=== PATIENT | male | born 1965 | race Two or more races ===

== ENCOUNTER 2021-04-14 09:57 | Outpatient (REF) | payer BC, SELFPAY ==
--- NOTE | 2021-04-14 10:03 | EMG_ITS ---
This is a 55-year-old man with several year history of bilateral upper extremity pain and numbness with the right being worse than the left. PHYSICAL EXAMINATION: On examination, he is alert and oriented with normal intellectual functions. Cranial nerves II through XII are normal. Muscle tone and strength are normal in all 4 extremities. Deep tendon reflexes symmetrical. Plantar responses are flexor. No Tinel or Phalen sign. IMPRESSION: Carpal tunnel syndrome. Nerve conduction EMG study: Moderately severe carpal tunnel syndrome on the right, early carpal tunnel syndrome on the left. Normal EMG of the right C5-T1 innervated muscles. MD NICHELLE Yeh/NEETA / [id number]
== END 2021-04-14 09:58 | disposition home or self-care (01) ==
LOC: HO.NEURO 09:57
PROVIDERS: Visit Provider Internal Medicine
DX: G56.03 Carpal tunnel syndrome, bilateral upper limbs (principal)
CPT/HCPCS: 95885; 95913

== ENCOUNTER → 2021-05-12 08:55 | Outpatient (BNVA) | payer BC, SELFPAY | PROVIDERS: Visit Provider Orthopaedic Surgery ==

== ENCOUNTER 2021-05-24 10:48 | Day surgery (SDC) | payer BC, SELFPAY ==
[2021-05-24 11:19] VITALS: BMI 29.9
[2021-05-24 11:24] VITALS: BP 136/83; PULSE 81; RESP 16; TEMP 36.7; O2SAT 98
--- NOTE | 2021-05-24 12:06 | MHC.SHP ---
Pre-Procedural Eval Section A Date of Service: 05/24/21 The patient is an INPATIENT: No Changes since office visit: No Cold of Flu in the past 2 weeks, No New Medical Problems, No Changes in Medication and No Patient answered all questions The History & Physical has been completed within 30 days and I have reviewed it.: Yes Section B Chief Complaint: carpal tunnel syndrome Allergies: Allergies Allergy/AdvReac Type Severity Reaction Status Date / Time No Known Allergies Allergy Verified 05/24/21 11:17 Plan I have reviewed the history and physical and performed a pertinent physical examination on my patient. No changes have occurred unless specified.
--- NOTE | 2021-05-24 12:07 | W.PM.OPN ---
Operative Note Operative Note Date of Service: 05/24/21 Narrative: Preop diagnosis: 1. Right Carpal tunnel syndrome Postop diagnosis: same Procedure: 1. Right Carpal tunnel release Surgeon: Xi Garner MD Anesthesia: local block using 1% lidocaine with epinephrine Findings: Thickened transverse carpal ligament. EBL: Less than 5 mL Specimens: None Complications: None Disposition: Brought to recovery room in stable condition Plan: Follow-up for 7-10 days for wound check and suture removal Indications: The patient is 55 years old, with right carpal tunnel syndrome that has been unresponsive to nonoperative management. The risks and benefits of operative treatment including but not limited to risk of damage to blood vessels, nerves, tendons, infection, persistent pain, persistent symptoms, or possible need for additional surgery were discussed with the patient and the patient wishes to proceed with surgery. Procedure: Once consent was obtained a local block was performed using a combination of 1% lidocaine with epinephrine. The patient was then brought back to the operating suite and placed on the operative table in supine position. A tourniquet was applied to the proximal aspect of the right upper extremity and the limb was prepped and draped in a standard surgical fashion. Once assured that we had a good block, a 1.5 cm longitudinal incision was made centered over the carpal tunnel. The incision was made through the skin to the subcutaneous tissues using a #15 blade. Dissection was made down to the level of the transverse carpal ligament with care being taken to protect the palmar cutaneous nerve. Once the transverse carpal ligament was clearly visualized, a longitudinal incision was made in the transverse carpal ligament 1st using a #15 blade, then using tenotomy scissors under direct visualization. Care was taken to look for and protect the motor branch of the median nerve when seen in this area. Once satisfied with our carpal tunnel release the wound was copiously irrigated with normal saline and hemostasis was obtained with a brief period of local pressure. The skin edges were reapproximated with some 5.0 nylon suture material and a sterile dressing was applied. The patient appears to have tolerated the procedure well and with no complications. All digits were well vascularized at the conclusion of the case.
[2021-05-24 13:25] VITALS: BP 135/84; PULSE 79; RESP 16; TEMP 36.8; O2SAT 97
== END 2021-05-24 13:41 | disposition home or self-care (01) ==
PROVIDERS: PCP Internal Medicine; Visit Provider Orthopaedic Surgery
PROC: (CPT 64721; principal; 2021-05-24 12:10)
DX: G56.01 Carpal tunnel syndrome, right upper limb (principal); I10 Essential (primary) hypertension; E78.00 Pure hypercholesterolemia, unspecified; Z79.899 Other long term (current) drug therapy; Z87.891 Personal history of nicotine dependence
CPT/HCPCS: 64721

== ENCOUNTER → 2021-06-02 14:25 | Outpatient (BNVA) | payer BC, SELFPAY | PROVIDERS: PCP Internal Medicine; Visit Provider Orthopaedic Surgery ==

== ENCOUNTER 2023-10-24 10:22 | Outpatient (REF) | payer BC, SELFPAY ==
[2023-10-24 10:58] LABS: MANUAL DIFF FLAG NO
[2023-10-24 11:07] LABS: Basophils Percent Auto 0.7 % (0-2); Eosinophils Absolute Auto 0.1 X10*3/uL (0.0-0.4); Eosinophils Percent Auto 2.4 % (0-4); Hematocrit 43.7 % (42.0-52.0); Hemoglobin 15.1 g/dl (14.0-18.0); Imm Gran Abs Auto 0.01 X10*3/uL (0.00-0.03); Imm Gran Pct Auto 0.2 % (0.0-0.4); Lymphocytes Absolute Auto 1.1 X10*3/uL (1.2-4.9); Lymphocytes Percent Auto 25.2 % (20-40); Mean Corpuscular HGB Conc 34.6 g/dl (31.0-36.0); Mean Corpuscular Hemoglobin 32.9 pg (27.0-33.0); Mean Corpuscular Volume 95.2 fL (80.0-98.0); Mean Platelet Volume 9.2 fL (9.4-12.4); Monocytes Absolute Auto 0.6 X10*3/uL (0.1-1.2); Monocytes Percent Auto 13.4 % (2-11); Neutrophils Absolute Auto 2.5 x10*3/uL (2.0-8.3); Neutrophils Percent Auto 58.1 % (45-73); Platelet Count 184 X10*3/uL (160-400); Red Blood Count 4.59 X10*6/uL (4.60-5.80); White Blood Count 4.3 X10*3/uL (4.8-10.8)
[2023-10-24 11:35] LABS: Alanine Aminotransferase 26 U/L (0-40); Albumin Level 4.3 g/dL (3.5-5.0); Alkaline Phosphatase 89 U/L (39-117); Anion Gap 11 (12-20); Aspartate Amino Transferase 30 U/L (5-37); Bilirubin Total 0.6 mg/dL (0.0-1.0); Blood Urea Nitrogen 12 mg/dL (9-16); Calcium 9.3 mg/dL (8.4-10.2); Carbon Dioxide 25 mmol/L (22-29); Chloride 104 mmol/L (96-108); Estimated Glomerular Filt Rate > 60; Glucose Random 94 mg/dL (60-115); Potassium 4.1 mmol/L (3.3-5.1); Sodium 136 mmol/L (135-145); Total Protein 7.6 g/dL (6.5-8.0)
== END 2023-10-24 10:23 | disposition home or self-care (01) ==
LOC: HO.10HDL 10:22
PROVIDERS: Visit Provider Internal Medicine
DX: R22.1 Localized swelling, mass and lump, neck (principal)
CPT/HCPCS: 36415; 80053; 85025

== ENCOUNTER 2023-10-31 11:15 | Outpatient (AMB) | payer BC, SELFPAY ==
--- NOTE | 2023-10-31 11:24 | MHC.OFFVIS ---
Vital Signs 10/31/23 11:30 Weight 180 lb BP 154/80 H Blood Pressure Location Rt brachial Position Sitting Pulse 75 Intake Visit Reasons: Lump RT side of Neck Intake Note: Patient referred by PCP Dr. Veloz for lump on Rt neck. Present for 1.5m. Patient c/o: enlarging. U/S scheduled for later on today. 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 He has had this for approximately 2 months time. He has no other such lumps or lesions elsewhere. Patient denies any fever, chills, night sweats, weight loss. Appetite, and energy are stable. Patient did have a significant smoking history where he smoked 1 pack per day for over 40 years. He discontinued smoking 2016. Patient does not recall any specific infections' dental issues,, or a CAT scratch in the head and neck area, although he does have a cat as a pet. He had a sore throat approximately 2 months ago which has since resolved.. Chart was reviewed and patient evaluated . Ultrasound results from an outside facility demonstrate suspicious cervical adenopathy on the right. 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 No other cervical, periclavicular, or axillary adenopathy appreciated bilaterally. Chest Other: Chest breath sounds bilaterally. HS 1 in 2 GI Other: Abdomen is soft, benign Assessment & Plan Assessment & Plan (1) Cervical lymphadenopathy: Code(s): R59.0 - Localized enlarged lymph nodes Category: Surgical Plan Think the patient needs an excisional biopsy of this right cervical mass. CT scan scheduled and encouraged the patient to complete this. Is unlikely to change the need for tissue diagnosis. Risks, benefits, alternatives of excisional biopsy right cervical lymph node reviewed with the patient and included but not limited to bleeding, infection, recurrence, numbness, pain, scarring the patient wishes to proceed. All questions answered. Arrangements were made for this. Coding Level of Care Code New Pt Level 5 (04598) Diagnoses Cervical lymphadenopathy R59.0
[2023-10-31 11:30] VITALS: BP 154/80; PULSE 75
== END 2023-10-31 11:45 | disposition home or self-care (01) ==
PROVIDERS: PCP Internal Medicine; Referring Provider Internal Medicine; Visit Provider Surgery
DX: R59.0 Localized enlarged lymph nodes (principal)
CPT/HCPCS: 99204

== ENCOUNTER → 2023-10-31 11:15 | Outpatient (BNVA) | payer BC, SELFPAY | PROVIDERS: PCP Internal Medicine; Referring Provider Internal Medicine; Visit Provider Surgery ==

== ENCOUNTER 2023-11-10 05:51 | Day surgery (SDC) | payer BC, SELFPAY ==
--- NOTE | 2023-11-09 12:19 | MHC.SHP ---
Pre-Procedural Eval Section A - 24 Hr Update-Section A only Date of Service: 11/09/23 The patient is an INPATIENT: No Changes since office visit: No Cold of Flu in the past 2 weeks, No New Medical Problems, No Changes in Medication and No Patient answered all questions Section B - Complete if H&P > 30 days Chief Complaint: Localized enlarged lymph nodes Allergies: Allergies Allergy/AdvReac Type Severity Reaction Status Date / Time No Known Allergies Allergy Verified 10/31/23 11:29 Plan I have reviewed the history and physical and performed a pertinent physical examination on my patient. No changes have occurred unless specified. Time Spent With Patient Time: Total time managing care of this patient today ____ minutes.
[2023-11-10 06:24] VITALS: BP 129/94; PULSE 77; RESP 16; TEMP 36.7; O2SAT 95
[2023-11-10] MEDS: Lactated Ringers 1,000 ML 100 ML IVCONT (06:25)
--- NOTE | 2023-11-10 07:15 | P.CONAN_ITS ---
Documented by User: Mary Chirinos NP 11/08/23 14:16 HPI - Anesthesia Eval Consult details Narrative: 58yo M for Right Excision Lymph Node with biopsy PMFSH Active Problems Active Problems: All Active Problems Cervical lymphadenopathy (Acute) Carpal tunnel syndrome of left wrist (Acute) Carpal tunnel syndrome of right wrist (Acute) Past Medical History Medical History AVM (arteriovenous malformation) Elevated cholesterol CVA (cerebral vascular accident) Carpal tunnel syndrome High blood pressure Surgical History Surgical History H/O colonoscopy History of carpal tunnel release S/P partial lobectomy of lung Social History Social History Household Members Other:: son Are you a primary medicare biller to a significant other at home: No Do you presently have visiting nurse or other home services: No Patient Tobacco Use Status: Former Tobacco user Quit Date: 2016 Tobacco use type: Cigarette Cigarettes Per Day: 20 Years Smoked: 40 Are you DNR?: No Advance Directives Information Provided: Yes (as above noted) Advance Directives on File: No Recently lost weight without trying: No Eating poorly because of decreased appetite: No Nutrition Risks: No Nutritional Risk Poor oral hygiene: No (dental extractions & crowns) Current occupational status: employed 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 Meds Allergies Allergy/AdvReac Type Severity Reaction Status Date / Time No Known Allergies Allergy Verified 11/10/23 06:08 Home Medications ?Medication ?Instructions ?Recorded ?Confirmed ?Last Taken ?Type amlodipine 10 mg tablet 1 tab PO DAILY 05/24/21 11/10/23 11/09/23 History aspirin 81 mg PO DAILY 05/24/21 11/10/23 11/09/23 History atorvastatin 80 mg tablet 1 tab PO DAILY 05/24/21 11/10/23 11/09/23 History lisinopril 20 1 tab PO DAILY 05/24/21 11/10/23 11/09/23 History mg-hydrochlorothiazide 25 mg tablet sildenafil 100 mg tablet 1 tab PO DIRECTED 05/24/21 11/08/23 Unknown History valacyclovir 1 gram tablet 1,000 mg PO DAILY 10/31/23 11/08/23 Unknown History (Valtrex) Exam Height,Weight and Vital Signs: Height 5 ft 5 in Weight 81.647 kg Pertinent Lab Results Pertinent Lab Results: Laboratory Tests 10/24/23 10:26 WBC 4.3 L Hgb 15.1 Hct 43.7 Plt Count 184 Sodium 136 Potassium 4.1 Chloride 104 Carbon Dioxide 25 BUN 12 Creatinine 0.80 Assessment and Plan Assessment Anesthesia Assessment: Chart Reviewed Documented by User: Janina Hernandez DO 11/10/23 07:19 HPI - Anesthesia Eval Consult details Narrative: 58yo M for Right Excision Lymph Node with biopsy CVA in 2017 - no residual deficits PMFSH Past Medical History Medical History AVM (arteriovenous malformation) Elevated cholesterol CVA (cerebral vascular accident) Carpal tunnel syndrome High blood pressure Family History Family history of problems with anesthesia: No Surgical History Surgical History H/O colonoscopy History of carpal tunnel release S/P partial lobectomy of lung History of Problems with Anesthesia: No Social History Social History Household Members Other:: son Are you a primary medicare biller to a significant other at home: No Do you presently have visiting nurse or other home services: No Patient Tobacco Use Status: Former Tobacco user Quit Date: 2016 Tobacco use type: Cigarette Cigarettes Per Day: 20 Years Smoked: 40 Are you DNR?: No Advance Directives Information Provided: Yes (as above noted) Advance Directives on File: No Recently lost weight without trying: No Eating poorly because of decreased appetite: No Nutrition Risks: No Nutritional Risk Poor oral hygiene: No (dental extractions & crowns) Current occupational status: employed 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 Meds Allergies Allergy/AdvReac Type Severity Reaction Status Date / Time No Known Allergies Allergy Verified 11/10/23 06:08 Home Medications ?Medication ?Instructions ?Recorded ?Confirmed ?Last Taken ?Type amlodipine 10 mg tablet 1 tab PO DAILY 05/24/21 11/10/23 11/09/23 History aspirin 81 mg PO DAILY 05/24/21 11/10/23 11/09/23 History atorvastatin 80 mg tablet 1 tab PO DAILY 05/24/21 11/10/23 11/09/23 History lisinopril 20 1 tab PO DAILY 05/24/21 11/10/23 11/09/23 History mg-hydrochlorothiazide 25 mg tablet sildenafil 100 mg tablet 1 tab PO DIRECTED 05/24/21 11/08/23 Unknown History valacyclovir 1 gram tablet 1,000 mg PO DAILY 10/31/23 11/08/23 Unknown History (Valtrex) Exam Exam Date and Time: November 10, 2023 0712 Height,Weight and Vital Signs: Height 5 ft 5 in Weight 81.647 kg Height 5 ft 5 in Weight 81.647 kg Vital Signs Temperature 98.0 F 11/10/23 06:24 Pulse Rate 77 11/10/23 06:24 Respiratory Rate 16 11/10/23 06:24 Blood Pressure 129/94 H 11/10/23 06:24 Pulse Oximetry 95 11/10/23 06:24 Oxygen Delivery Method Room Air 11/10/23 06:24 Temperature 98.0 F 11/10/23 06:24 Pulse Rate 77 11/10/23 06:24 Respiratory Rate 16 11/10/23 06:24 Blood Pressure 129/94 H 11/10/23 06:24 Pulse Oximetry 95 11/10/23 06:24 Oxygen Delivery Method Room Air 11/10/23 06:24 Airway Mallampati Class: I TM Dist: >3cm Neck ROM: Full Loose/Missing/Broken Teeth: No (patient denies any loose or broken teeth) Heart: S1S2 Lungs: CTAB Assessment and Plan Assessment Anesthesia Assessment: Anesthesia Plan Discussed and Chart Reviewed Final Anesthetic Review Family History of Problems with Anesthesia: No History of Problems with Anesthesia: No NPO: Yes ASA Class: II Final Preanesthetic Review: No Changes in Pt Med Stat, Meds/Allgs Chart Reviewed, Consent Obtained/Reviewed and Anes Risks/Benef Reviewed Patient Risk: Low Anesthetic Plan Anesthetic Plan: GA and Agree w/ Assess. and Plan Disposition: Standard PACU
[2023-11-10 08:10] VITALS: BP 112/71; PULSE 72; RESP 10; TEMP 36.5; O2SAT 97
[2023-11-10 08:15] VITALS: BP 105/68; PULSE 71; RESP 10; O2SAT 97
[2023-11-10 08:20] VITALS: BP 113/76; PULSE 68; RESP 10; O2SAT 97
[2023-11-10 08:25] VITALS: BP 118/79; PULSE 69; RESP 14; O2SAT 95
[2023-11-10 08:40] VITALS: BP 136/80; PULSE 76; RESP 18; TEMP 36.1; O2SAT 96
--- NOTE | 2023-11-10 09:32 | W.PM.OPN ---
Operative Note Operative Note Date of Service: 11/10/23 Narrative: Preoperative diagnosis: [] Suspicious right mid cervical lymph node Postop diagnosis: [] The same Procedure [] excisional biopsy left cervical lymph node Surgeon: [] [place] [employer]: [] K[place]e Type of Anesthesia: [] General Indication for surgery: [] A proximally 4 x 3 cm necrotic mass consistent with a large lymph node of the mid right cervical neck. Findings: [] Patient brought to the operating room, placed on operative table in supine position, after an adequate level of general anesthesia was induced, the right neck was prepped and draped in usual sterile fashion. Using a transverse incision over skin crease which was located over the mass in question, this carried down through skin, subcutaneous tissue, and platysma muscle. Blunt and sharp dissection demonstrated the mass as noted above which was circumferentially dissected out using combination of blunt and Bovie. Necrotic specimen was sent to pathology. Wound was irrigated, and secured hemostasis. Wound was closed in the following manner; platysma layer was closed using interrupted 3-0 Vicryl suture. Interrupted inverted deep dermal 3-0 Vicryl sutures followed by running subcuticular 4-0 Vicryl sutures were placed. Steri-Strips and sterile dressings were applied. Wound was infiltrated 0.5% Marcaine/1% lidocaine at completion. Sponge, needle, and instrument counts were reported correct. Patient tolerated the procedure well and emerged from anesthesia stable condition. EBL minimal
== END 2023-11-10 09:32 | disposition home or self-care (01) ==
PROVIDERS: PCP Internal Medicine; Visit Provider Surgery
PROC: (CPT 38500; principal; 2023-11-10 07:30)
DX: C77.0 Secondary and unspecified malignant neoplasm of lymph nodes of head, face and neck (principal); I10 Essential (primary) hypertension; E78.00 Pure hypercholesterolemia, unspecified; Q27.39 Arteriovenous malformation, other site; Z90.2 Acquired absence of lung [part of]; Z86.73 Personal history of transient ischemic attack (TIA), and cerebral infarction without residual deficits; Z98.890 Other specified postprocedural states; Z87.891 Personal history of nicotine dependence; Z79.82 Long term (current) use of aspirin; Z79.899 Other long term (current) drug therapy
CPT/HCPCS: 38510; 88304; 88305; 88341; 88342; J0690; J1100; J1885; J2250; J2405; J2704; J2795; J3010

== ENCOUNTER → 2023-11-10 05:51 | Outpatient (BNV) | payer BC, SELFPAY | PROVIDERS: PCP Internal Medicine; Visit Provider Surgery | DX: R59.0 Localized enlarged lymph nodes (principal) | CPT/HCPCS: 38510 ==

== ENCOUNTER 2023-11-20 11:20 | Outpatient (AMB) | payer BC, SELFPAY ==
--- NOTE | 2023-11-20 11:29 | MHC.OFFVIS ---
Intake Visit Reasons: S/P excision bx Rt cervical lymph node Intake Note: Patient here s/p exc bx Rt cervical lymph node. Reports incision healing well. Patient c/o: no concerns. SX: 11-10-23. Control Valve Mechanic Required: No Accompanied by: Sister Allergies No Known Allergies Allergy (Verified 11/20/23 11:29) Medication List - Last Reconciled 11/20/23 by Rajan Yap MD amlodipine 1 tab PO DAILY [aspirin 81 mg PO DAILY] atorvastatin 1 tab PO DAILY hydrocodone-acetaminophen 5-325 mg 1 tab PO Q4-6H PRN hydrocodone-acetaminophen 5-325 mg 1 tab PO Q4-6H PRN lisinopril-hydrochlorothiazide 20-25 mg 1 tab PO DAILY sildenafil 1 tab PO DIRECTED valacyclovir (Valtrex) 1,000 mg PO DAILY HPI Comments Details: Patient presents with his sister for follow-up. He has minimal incisional discomfort. No other wound issues. Pathology results were reviewed and demonstrate metastatic squamous cell carcinoma of the excised lymph node. [facility] Medical History AVM (arteriovenous malformation) Elevated cholesterol CVA (cerebral vascular accident) Carpal tunnel syndrome High blood pressure Surgical History Status post excisional biopsy (11/10/23) H/O colonoscopy History of carpal tunnel release S/P partial lobectomy of lung Social History Household Members Other:: son Are you a primary school child care attendant to a significant other at home: No Do you presently have visiting nurse or other home services: No Comment: counts correct Patient Tobacco Use Status: Former Tobacco user Quit Date: 2016 Tobacco use type: Cigarette Cigarettes Per Day: 20 Years Smoked: 40 Current occupational status: employed 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 I have ordered a CT scan of the chest and abdomen. We will also arrange for oncologic consultation. Further workup will be per Oncology recommendations. In The meantime, patient should avoid strenuous activities and allow his wound to heal uneventfully. All questions answered. Arrangements will be made for the above. 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
== END 2023-11-20 11:52 | disposition home or self-care (01) ==
PROVIDERS: PCP Internal Medicine; Visit Provider Surgery
DX: C77.9 Secondary and unspecified malignant neoplasm of lymph node, unspecified (principal); C80.1 Malignant (primary) neoplasm, unspecified
CPT/HCPCS: 99024

== ENCOUNTER → 2023-11-20 11:20 | Outpatient (BNVA) | payer BC, SELFPAY | PROVIDERS: PCP Internal Medicine; Visit Provider Surgery ==

== ENCOUNTER → 2023-11-24 10:20 | Outpatient (BNV) | payer BC, SELFPAY | PROVIDERS: PCP Internal Medicine; Referring Provider Student in an Organized Health Care Education/Training Program; Visit Provider Internal Medicine Medical Oncology | DX: C77.9 Secondary and unspecified malignant neoplasm of lymph node, unspecified (principal) | CPT/HCPCS: 99204; 99214 ==

== ENCOUNTER 2023-12-07 12:58 | Outpatient (REF) | payer BC, SELFPAY ==
--- NOTE | ~2023-12-07 | CT_ITS ---
EXAMINATION: CT CHEST WITH IV CONTRAST CT ABDOMEN AND PELVIS WITH IV CONTRAST CLINICAL INFORMATION: Secondary malignant neoplasm of lymph nodes. Squamous cell carcinoma. COMPARISON: None available within the electronic picture archive. TECHNIQUE: Multidetector CT imaging examination of the chest, abdomen and pelvis was performed with intravenous administration of 85 mL Omnipaque 350. Axial images are displayed at 0.6 mm and 5 mm slice thickness. Oral contrast not given.. Coronal and sagittal reformatted images were generated at the technologist's workstation and submitted for review. This CT examination was performed using dose optimization techniques as appropriate, variously including the following: *Automated exposure control *Adjustment of mA and/or kV according to patient size (this includes techniques or standardized protocols for targeted exams where dose is matched to indication/reason for exam; i.e. extremities or head) *Use of iterative reconstruction technique DLP: 510 mGy-cm FINDINGS: CHEST - LUNGS AND PLEURA: Trachea and central airways widely patent and normal in caliber. Prior right middle lobectomy. 0.3 cm calcified granuloma within the lingula. A few noncalcified micronodules are detected, including anterior left upper lobe (image 123, series 5) and lateral right lung apex (image 77, series 5). No suspicious lung nodule, mass, interstitial disease or pleural effusion. CARDIOVASCULAR: The heart size is normal. No pericardial effusion. Pulmonary arteries and thoracic aorta are normal in caliber. There is atherosclerotic calcification of coronary arteries. MEDIASTINUM/LOWER NECK: No evidence of mediastinal mass. The esophagus has normal wall thickness. Thyroid gland is unremarkable. LYMPHATICS: No pathologic sized axillary, hilar or mediastinal lymph nodes. BONES AND THORACIC SOFT TISSUES: Mild spondylosis of the thoracic spine. No acute or suspicious osseous abnormality within the visualized thorax. The focus of ossification between the right posterior seventh and eighth ribs could be sequela of remote trauma or thoracic surgery. ABDOMEN AND PELVIS - HEPATOBILIARY: Liver has normal size, contour and attenuation. No liver mass. Gallbladder is well distended and has normal wall thickness. No bile duct dilatation. PANCREAS: No edema, mass or pancreatic ductal dilatation. SPLEEN: Normal. ADRENAL GLANDS: Normal. KIDNEYS AND URETERS: Kidneys are normal in size and attenuation. No nephrolithiasis, hydronephrosis or perinephric fluid collection. BOWEL AND PERITONEUM: No dilated loops of bowel. The appendix is normal. No overt bowel wall thickening. No mesenteric fat stranding, ascites or pneumoperitoneum. ABDOMINAL WALL: No acute abnormality. There is symmetric protrusion of extraperitoneal fat into each inguinal canal. VESSELS: Atherosclerosis of the abdominal aorta without aneurysm. Inferior vena cava is normal. LYMPH NODES: No pathologic sized lymph nodes in the abdomen or pelvis. No inguinal lymphadenopathy. BLADDER: Normal. PELVIC VISCERA: Prostate gland is mildly enlarged and measures 4.8 cm transverse dimension. MUSCULOSKELETAL: No acute or suspicious osseous abnormality. Lumbar vertebra have normal height and alignment. Pelvic bones and proximal femurs are intact. There are osteophytes and subchondral cysts at the degenerated hips. CT/CT abdomen pelvis w IV con IMPRESSION: * Status post right middle lobectomy. * A few pulmonary micronodules are detected. However, no suspicious-appearing lung nodule, mass or lymphadenopathy. * No evidence of metastatic disease within the abdomen or pelvis..
[2023-12-07] MEDS: iohexoL 350 MG/ML 100 ML INFUS..BTL 85 ML IV (14:08)
== END 2023-12-07 12:59 | disposition home or self-care (01) ==
LOC: HO.CT 12:58
PROVIDERS: PCP Internal Medicine; Visit Provider Surgery
DX: C77.9 Secondary and unspecified malignant neoplasm of lymph node, unspecified (principal); C80.1 Malignant (primary) neoplasm, unspecified; R59.0 Localized enlarged lymph nodes
CPT/HCPCS: 71260; 74177; Q9967

== ENCOUNTER 2024-10-14 08:49 | Outpatient (REF) | payer BC, SELFPAY ==
--- OUTSIDE RECORDS SUMMARY | 2024-10-14 09:35 | XMS_ITS | Encounter Summary ---
Author Organization [facility] Address [address] [place] [address] Care Team Providers Care Grain Packer Name Role Phone Leilani Veloz MD Primary Care Provider [phone] Encounter Details Date Type Department Care Team (Late st Contact Info) Description 04/30/2024 10:55 AM EDT Hospital Encounter TH HISTORIC ENCOUNTERS EASTERN CONVERSION ONLY Zechariah Meraz MD [address] [place] [phone] Social History Tobacco Use Types Packs/Day Years Used Date Smoking Tobacco: Former Cigarettes Q uit: 07/10/2016 Smokeless Tobacco: Never Alcohol Use Standard Drinks/Week Comments Not Currently 0 (1 standard drink = 0.6 oz pur e alcohol) Sex and Gender Information Value Date Recorded Sex Assigned at Male 07/16/2024 9:54 AM EST Legal Sex Male 6:12 PM EST Gender Identity Male 08/27/2024 9:53 AM EST Sexual Orientation Straight 08/27/2024 9: 53 AM EST Travel History Travel Start Travel End [place] 09/16/2024 09/20/2024 documented as of this encounter Last Filed Vital Signs Vital Sign Reading Time Taken Comments Blood Pressure 119/77 04/30/2024 11:01 AM EDT Sitting Left arm Pulse 83 04/30/2024 11:01 AM EDT Temperature - - Respiratory Rate - - Oxygen Saturation - - Inhaled Oxygen Concentration - - Weight 74.4 kg (164 lb) 05/02/2024 1:00 PM EDT Height 165.1 cm (5' 5 ) 04/03/2024 11:1 2 AM EDT Body Mass Index 27.29 04/03/2024 11:12 AM EDT documented in this encounter Progress Notes * Zechariah Meraz MD - 04/30/2024 11:00 AM EDT Diagnosis/treatment: 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 He started chemoradiation with weekly cisplatin (40 mg/m??). He started radiation on 01/31/2024. He started chemotherapy on 02/01/2024 and received 4 weekly infusions of cisplatin. Cisplatin was discontinued due to renal failure. Chemotherapy was subsequently held due to neutropenia.. He received carboplatin (AUC 2) on 03/20/2024. He completed radiation on 03/20/2024. Interval history: The patient is a 58-year-old formerly smoking, currently drinking gentleman who noticed a mass in his right neck in early 11/2023 following an episode with a sore throat. A neck ultrasound on 10/19/2023 showed a 3.6 x 2.5 x 3.3 cm thick- walled complex lesion with internal debris in the right neck. There were also multiple prominent lymph lymph nodes in the right neck measuring up to 1.[address] on 10/31/2023 showed a 3.5 cm right level III jugular node with central necrosis abutting the right submandibular gland. There was asymmetric soft tissue fullness of the right posterolateral tongue measuring approximately 2.5 cm. There were additional smaller abnormal right-sided level VB lymph nodes measuring up to 1.6 cm. 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 He underwent a fiberoptic laryngoscopy on 11/30/[address] Booker and a 2 cm firm mass with lateral erosion ulceration was seen in the right base oftongue. A PET/CT on 12/08/2023 showed uptake in the right base of tongue mass with SUV 12.8, uptake in 0.9 and 0.8 cm right-sided lymph nodes in the carotid jugular space with SUV up to 6.3, uptake inright supraclavicular node with SUV 7.2, uptake in another cluster of right supraclavicular nodes, uptake in uptake in two 0.5 cm left supraclavicular nodes with SUV up to 3.3, and uptake in in a 0.6cm node adjacent to the left thyroid gland with SUV 4.6. He underwent audiometry screening on 01/05/2024 which documented expected high- frequency hearing loss. He denied baseline hearing loss, tinnitus, or peripheral neuropathic symptoms. He tolerated chemoradiation reasonably well. He reported mild fatigue x 1-2 days following chemotherapy, which resolved. He reports xerostomia, which is lessening. He reports taste changes, which arelessening. He reported intermittent nausea, relieved by ondansetron, which resolved.. He reported co nstant severe throat pain and odynophagia., which is lessening.. He took miracle Mouthwash with transient relief. He takes ibuprofen with partial relief. He took oxycodone 5 mg at bedtime with partial relief. He started MS Contin 30 mg at bedtime which provided good partial relief. He takes MS IR 15 mg every 4 hours throughout the day with good partial relief. He no longer requires oxycodone. Hedeveloped thrush in early 02/2024, resolved on topical nystatin. He developed thrush in early 03/2024, resolved with a course of Diflucan x 7 days. [place] through the radiation course, he no longer tolerated oral feeding. A creatinine on 02/21/2024 ray to 1.5. He receives hydration NS x 1 L 3 times weekly. A creatinine on 02/28/2024 ray to 1.6. A creatinine on 03/06/2028 was 1.0. A creatinine 03/20/2024 was 0.9. he lost weight from 190 pounds on 02/01/2024 down to 161 pounds on 04/30/2024.. He is starting to take soups orally. 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 He isfollowed by our Chicken Handler. He reports mild diarrhea since starting the [employer] feeding. We discontinued weekly cisplatin following four weekly infusions due to renal failure. We planned to start weekly carboplatin. A platelet count on 02/28/2024 was 83,000. We delayed planned weekly carboplatin by 1 week. An ANC on 03/06/2024 was 1.0. A platelet count was 71,000. We delayed weekly carboplatin by another week. He had 2 syncopal episodes on 03/09/2024 who presented to the [facility] ER 03/10/2024. A chest CTA on 03/10/2024 showed bilateral pulmonary emboli with a central right embolus extending into each of the lobarpulmonary arteries and a left pulmonary embolus in the proximal left lower lobe pulmonary artery. There is right heart strain. A bilateral lower extremity Doppler ultrasound 03/11/2024 showed an occlusive thrombus in the left femoral vein, left popliteal vein, and throughout the visualized left calf veins. He denies antecedent periods of immobilization, trauma, or surgery. There is no family history of thrombosis in his parents, sister, her 2 sons. He was started on IV anticoagulation and discharged on Eliquis. He has had no further syncopal episodes. An ANC on 03/14/2024 was 1.2. We delayed carboplatin by another week. An ANC on 03/20/2024 was 2.4. We proceeded with carboplatin x 1 dose. He denies hearing loss, tinnitus, or peripheral neuropathic symptoms. Follow-up audiometry screening on 02/19/2024 during week 3 showed stable expected high- frequency hearing loss. He denies headaches or visual changes. He denies cough, hemoptysis, or dyspnea on exertion. He denies nausea or abdominal pain. He denies unusual bone pain. He reports an intact appetite and stable weight. He underwent germline genetic testing on 01/04/2024 with a multigene panel and no deleterious mutations were found. 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 Current medications: Amlodipine, aspirin 81 mg, atorvastatin, lisinopril/hydrochlorothiazide, sildenafil, Valtrex. Allergies: No known drug allergies. Family history: His mother was diagnosed with breast cancer in her 60s and survived that diagnosis. His father had no history of cancer. His sister has no history of cancer. His 2 sons have no history of cancer. 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 He is . He has 2 sons. He has 3granddaughters. He started smoking age 14 and smoked up to a pack a day and quit at age 51. He drinks alcohol, 3 drinks per day. Review of systems: The remainder of a 10 point review of systems was unremarkable. Physical examination: HEENT: Sclerae anicteric Neck: No lymphadenopathy. Lungs: Clear to auscultation. Heart: No murmurs. Abdomen: Soft, nontender, no organomegaly or masses. Extremities: No edema. Skin: No rash. Neurologic: Normal gait. Assessment/plan: The patient is a 58-year-old formerly smoking, currently drinking gentleman who presented in 11/2023with a stage II T2N2 base of tongue cancer, [id number]. We will plan for chemoradiation with weekly cisplatin 40 mg/m??, as planned by Dr. Nicole. I discussed the potential radiation-induced mucositis. He has a G-tube placed. He is followed by Nutrition. I discussed potential adverse effects of cisplatin, including fatigue, nausea, constipation, cytopenias, and infection. I discussed the uncommon but serious irreversible adverse effects of cisplatin, including hearing loss, tinnitus, and peripheral neuropathy. He had baseline audiometry testing. We will follow audiometry testing during treatment. He tolerated chemoradiation reasonably well. He reported mild fatigue x 1-2 days following chemotherapy, which resolved. He reports xerostomia, which is lessening. He reports taste changes, which arelessening. He reported intermittent nausea, relieved by ondansetron, which resolved.. He reported co nstant severe throat pain and odynophagia., which is lessening.. He took miracle Mouthwash with transient relief. He takes ibuprofen with partial relief. He took oxycodone 5 mg at bedtime with partial relief. He started MS Contin 30 mg at bedtime which provided good partial relief. He takes MS IR 15 mg every 4 hours throughout the day with good partial relief. He no longer requires oxycodone. He developed thrush in early 02/2024, resolved on topical nystatin. He developed thrush in early 03/2024,resolved with a course of Diflucan x 7 days. [place] through the radiation course, he no longer tolerated oral feeding. A creatinine on 02/21/2024 ray to 1.5. He receives hydration NS x 1 L 3 times weekly. A creatinine on 02/28/2024 ray to 1.6. A creatinine on 03/06/2028 was 1.0. A creatinine 03/20/2024 was 0.9. he lost weight from 190 pounds on 02/01/2024 down to 161 pounds on 04/30/2024.. He is starting to take soups orally. 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 He is followed by our Chicken Handler. He reports mild diarrhea since starting the [employer] feeding. We discontinued weekly cisplatin following four weekly infusions due to renal failure. We planned to start weekly carboplatin. A platelet count on 02/28/2024 was 83,000. We delayed planned weekly carboplatin by 1 week. An ANC on 03/06/2024 was 1.0. A platelet count was 71,000. We delayed weekly carboplatin by another week. He had 2 syncopal episodes on 03/09/2024 who presented to the [facility] ER 03/10/2024. A chest CTA on 03/10/2024 showed bilateral pulmonary emboli with a central right embolus extending into each of the lobarpulmonary arteries and a left pulmonary embolus in the proximal left lower lobe pulmonary artery. There is right heart strain. A bilateral lower extremity Doppler ultrasound 03/11/2024 showed an occlusive thrombus in the left femoral vein, left popliteal vein, and throughout the visualized left calf veins. He denies antecedent periods of immobilization, trauma, or surgery. There is no family history of thrombosis in his parents, sister, her 2 sons. He was started on IV anticoagulation and discharged on Eliquis. He has had no further syncopal episodes. An ANC on 03/14/2024 was 1.2. We delayed carboplatin by another week. An ANC on 03/20/2024 was 2.4. We proceeded with carboplatin x 1 dose. We ordered a PET/CT for restaging. He underwent germline genetic testing on 01/04/2024 with a multigene panel and no deleterious mutations were found. This encounter is of high risk. The patient has a stage II head neck cancer, which is life-threatening condition. He recently completed chemoradiation with weekly cisplatin, which carries a risk of significant morbidity and mortality. documented in this encounter Plan of Treatment Upcoming Encounters Date Type Department Care Team (Late st Contact Info) Description 11/27/2024 1:00 PM EDT Appointment [facility] Infusion Center [address] [phone] 01/02/2025 9:30 AM EDT Office Visit [facility] Hematology Oncology [address] [place] [phone] Zechariah Meraz MD [address] [place] [phone] 01/14/2025 10:30 AM EDT Appointment [facility] Radiation Oncology [address] [place] [phone] No Charles NP [address] [place] [address] documented as of this encounter Goals Goal Patient Goal Type Associated Problems Recent Progress Patient-Stated? Author LTG Xi Morris, SIDE GUIDER Note: Pt will consume least restrictive PO diet without changes to medical or respiratory status to maintain adequate oral nutrition hydration STG Xi Morris, SIDE GUIDER Note: Pt will participate in development of personalized HEP and perform 3-4xs/wk with min assist for modifications STG Xi Morris, SIDE GUIDER Note: Pt will participate in ongoing education re dysphagia s/p chemoradiation and techniques for symptom management STG Xi Morris, SIDE GUIDER Note: Pt will consume recommended diet textures and utilize swallow strategies given min verbal or visual cues documented as of this encounter Procedures Procedure Name Priority Date/Time Associated Diagnosis Comments ..MISCELLANEOUS REFERENCE LAB TEST 04/30/2024 ..MISCELLANEOUS REFERENCE LAB TEST 04/30/2024 documented in this encounter Results * Miscellaneous reference lab test (04/30/2024) us Provider Onbase LAB BLOOD ORDERABLES Final Re sult * Miscellaneous reference lab test (04/30/2024) us Provider Onbase LAB BLOOD ORDERABLES Final Re sult documented in this encounter Visit Diagnoses Not on filedocumented in this encounter Care Teams Grain Packer Relationship Specialty Start Date End Date Leilani Veloz MD [address] [facility] [address] [place], [place] PCP - General Internal Medicine 06/08/18 documented as of this encounter
--- OUTSIDE RECORDS SUMMARY | 2024-10-14 09:35 | XMS_ITS | Encounter Summary ---
Author Organization [facility] Address [address] [place] [address] Care Team Providers Care Raw Finish Mill Operator Name Role Phone Leilani Veloz MD Primary Care Provider [phone] Encounter Details Date Type Department Care Team (Late st Contact Info) Description 04/26/2024 12:55 PM EDT Hospital Encounter TH HISTORIC ENCOUNTERS EASTERN CONVERSION ONLY Social History Tobacco Use Types Packs/Day Years [...] EST Travel History Travel Start Travel End [place] 09/16/2024 09/20/2024 documented as of this encounter Last Filed Vital Signs Vital Sign Reading Time Taken Comments Blood Pressure - - Pulse - - Temperature - - Respiratory Rate - - Oxygen Saturation - - Inhaled Oxygen Concentration - - Weight 76.7 kg (169 lb) 04/03/2024 11:12 AM EDT Height 165.1 cm (5' 5 ) 04/03/2024 11:12 AM EDT Body Mass Index 28.12 04/03/2024 11:12 AM EDT documented in this encounter Progress Notes * Historical, Notes Results - 04/26/2024 1:00 PM EDT Basil arrives ambulatory with strong steady gait for his supportive care hydration today - he is feeling good - no complaints currently. Stable assessment completed - reports he has been trying to eat different foods but still having some difficulty with a burning sensation in my mouth . Port in right chest accessed per protocol with no difficulty - +brisk blood return noted. IVF up as ordered. Patient resting in recliner with call conklin in reach - CTM. 1435 - Infusion completed - port flushed and deaccessed per protocol. Patient has next appt in place. Stable upon discharge. documented in this encounter Plan of Treatment Upcoming Encounters Date Type Department Care Team (Late st Contact Info) Description 11/27/2024 1:00 PM EDT Appointment [facility] Infusion Center [address] [place] [phone] 01/02/2025 9:30 AM EDT Office Visit [facility] Hematology Oncology [address] [place] [phone] Zechariah Meraz MD [address] [place] [phone] 01/14/2025 10:30 AM EDT Appointment [facility] Radiation Oncology [address] [place] [phone] No Charles NP [address] [place] [address] documented as of this encounter Goals Goal Patient Goal Type Associated Problems Recent Progress Patient-Stated? Author LTG General Xi Devlin, SHEET METAL HELPER Note: Pt will consume least restrictive PO diet without changes to medical or respiratory status to maintain adequate oral nutrition hydration STG Xi Morris, SHEET METAL HELPER Note: Pt will participate in development of personalized HEP and perform 3-4xs/wk with min assist for modifications STG Xi Morris, SHEET METAL HELPER Note: Pt will participate in ongoing education re dysphagia s/p chemoradiation and techniques for symptom management STG General No Xi Braun, SHEET METAL HELPER Note: Pt will consume recommended diet textures and utilize swallow strategies given min verbal or visual cues documented as of this encounter Visit Diagnoses Not on filedocumented in this encounter Care Teams Raw Finish Mill Operator Relationship Specialty Start Date End Date Leilani Veloz MD [address] PCP - General Internal Medicine 06/08/18 documented as of this encounter
--- OUTSIDE RECORDS SUMMARY | 2024-10-14 09:35 | XMS_ITS | Patient Health Record ---
Author Organization [facility] Carlito Padgett Address [address] [place] [address] Care Team Providers Care Marina Sales And Service Supervisor Name Role Phone Chaddsemaj Leilani Primary Care Provider Unavailab Otto Castelan Unavailable [phone] Allergies No Known Allergies Reason For Referral No Information Medications Medication SIG (Take, Route, Frequency, Duration) Notes Start Date End Date Status valACYclovir HCl 1 GM 1 tablet Orally On ce a day for 10 day(s) Active Atorvastatin Calcium 80 MG 1 tablet Oral ly Once a day for 30 day(s) Active Aspir-81 Active Ciclopirox 0.77 % APPLY 1 APPLICATION EXTERNALLY TWICE A DAY FOR 365 DAYS for 30 Active Nasal Allergy PRN Active Lisinopril-hydroCHLOROthiaz sloane 20-25 MG 1 tablet Orally Once a day for 30 day(s) Active amLODIPine Besylate 10 MG 1 tablet Orall y Once a day for 30 day(s) Active Social History Tobacco Use: Social History Observation Description Date Details (start date - stop date) Former Smoker NA - NA Tobacco Use/Smoking Question Answer Notes Are you a: former smoker Alcohol Screen Question Answer Notes Did you have a drink contain ing alcohol in the past year? Yes How often did you have a dri nk containing alcohol in the past year? 4 or more times a week (4 points) Points 4 Interpretation Positive Tobacco use other than smoking: Question Answer Notes Are you an other tobacco user? No Problems Problem Type SNOMED Code ICD Code Onset Dates Problem Status W/U Status Risk Notes Problem [id number] Fungal infection of nail (B35.1) Active confirmed Rx drug management (4),Response to treatment,Unr esolved Vital Signs Height 5ft 5in in 11/06/2023 Weight 180 lbs 11/06/2023 BMI 29.95 kg/m2 11/06/2023 Encounters Encounter Location Date Provider Diagnosis [facility] [place] [address] [facility] [address] [place] [address] 11/06/2023 Otto Suh Fungal infection of nail B35.1 ; Pain of toe of right foot M79.674 and Pain of toe of left foot M79.675 [facility] [address] [phone] 01/29/2024 Otto Suh Assessments Encounter Date Diagnosis (ICD Code) Assessment Notes Treatment Notes Treatment Clinical Notes Section Notes 11/06/2023 Pain of toe of right foot (ICD-10 - M79.674) 11/06/2023 Fungal infection of nail (ICD-10 - B35.1) Rx drug management (4),Response to treatment,Unres olved 11/06/2023 Pain of toe of left foot (ICD-10 - M79.675) Plan Of Treatment No Information Insurance Providers Payer Name Payer Address Payer Phone Subscriber Number Group Number Insured Name Patient Relationship to Insured Coverage Start Date Coverage End Date [facility] [address] [place] [address] [phone] [id number] Donovan Ortiz Self - patient is the insured Medical (General) History Medical History History ICD Code Broken bones CAD (Cholesterol) High blood pressure Stroke Chicken pox Surgical History Surgery Date(Month/Year) lobectomy 07/18/18
--- OUTSIDE RECORDS SUMMARY | 2024-10-14 09:35 | XMS_ITS | Encounter Summary ---
Author Organization [facility] Address [address] [place] [address] Care Team Providers Care Digester Hand Name Role Phone Leilani Veloz MD Primary Care Provider [phone] Encounter Details Date Type Department Care Team (Late st Contact Info) Description 04/19/2024 12:50 PM EDT Hospital Encounter TH HISTORIC ENCOUNTERS [...] EST Travel History Travel Start Travel End [place] 09/16/2024 09/20/2024 documented as of this encounter [...] Progress Notes * Historical, Notes Results - 04/19/2024 1:00 PM EDT 1345: PT arrives this afternoon for hydration. PT reports that he is still trying to take food PO although struggling. PT sts he is able to eat icecream, eggs and mac and cheese, although pain with juices and chili. PT motivated to continue trying oral intake especially with added lidocaine mouth wash. PT reports around his G tube site is slightly red and bled a little this morning. 1cm of redness noted around G tube site with some yellow/green drainage, no bleeding noted. This RN made Dr. Meraz aware and PT made aware to monitor this area for worsening redness, bleeding and drainage, PT verbalized understanding also understands to keep area clean and dry. Otherwise stable assessment. Port accessed without diff, +BR noted, hydration initiated. PT given an icecream, denies other concerns, call conklni in reach. 1450: Hydration completed without concern. Port flushed per protocol and deaccessed, dressing applied. PT provided with future apt reminders, denies other concerns, left unit, stable at D/C. documented in this encounter Plan of Treatment Upcoming Encounters Date Type Department Care Team (Late st Contact Info) Description 11/27/2024 1:00 PM EDT Appointment [facility] Infusion Center [address] [phone] 01/02/2025 9:30 AM EDT Office Visit [facility] Hematology Oncology [address] [place] [phone] Zechariah Meraz MD [address] [place] [phone] 01/14/2025 10:30 AM EDT Appointment [facility] Radiation Oncology [address] [place] [phone] No Charles NP [address] [place] [address] documented as of this encounter Goals Goal Patient Goal Type Associated Problems Recent Progress Patient-Stated? Author LTG General No Xi Braun, RN SUPPORT SERVICES Note: Pt will consume least restrictive PO diet without changes to medical or respiratory status to maintain adequate oral nutrition hydration [facility] Xi Morris, RN SUPPORT SERVICES Note: Pt will participate in development of personalized HEP and perform 3-4xs/wk with min assist for modifications Xi Ireland, RN SUPPORT SERVICES Note: Pt will participate in ongoing education re dysphagia s/p chemoradiation and techniques for symptom management [facility] Xi Morris, RN SUPPORT SERVICES Note: Pt will consume recommended diet textures and utilize swallow strategies given min verbal or visual cues documented as of this encounter Visit Diagnoses Not on filedocumented in this encounter Care Teams Digester Hand Relationship Specialty Start Date End Date Leilani Veloz MD [address] [place] [address] [address] [place], [place] PCP - General Internal Medicine 06/08/18 documented as of this encounter
--- OUTSIDE RECORDS SUMMARY | 2024-10-14 09:35 | XMS_ITS | Encounter Summary ---
Author Organization [facility] Address [address] [place] [address] Care Team Providers Care Neurology Nurse Name Role Phone Leilani Veloz MD Primary Care Provider [phone] Encounter Details Date Type Department Care Team (Late st Contact Info) Description 04/16/2024 10:44 AM EDT Hospital Encounter TH HISTORIC ENCOUNTERS [...] EST Travel History Travel Start Travel End [place] 09/16/2024 09/20/2024 documented as of this encounter [...] Progress Notes * Historical, Notes Results - 04/16/2024 11:00 AM EDT 1130: PT arrives today for for labs and hydration. PT reports he has been tolerating soft foods by mouth with the help from morphine 15mg Q4-5 hrs. Sts he can eat mac and cheese, rice and ice cream with only mild pain. PT happy about this and this RN encouraged PT to keep eating as tolerated. This RN also highlighted for PT the more he can tolerate PO the less hydration he will need here. PT verbalized understanding and motivated to keep trying to eat. Port accessed without diff, +BR noted, labs obtained and sent, port flushed per protocol and hydration initiated. PT given 1 cup ice cream to try and eat, denies other concerns, call conklin in reach. 1225: Hydration completed without concern. Port flushed per protocol and deaccessed, dressing applied. PT provided with future apt reminder via calendar. PT denies further concerns, call conklin in reach. documented in this encounter Plan of Treatment Upcoming Encounters Date Type Department Care Team (Late st Contact Info) Description 11/27/2024 1:00 PM EDT Appointment [facility] Infusion Center [address] [place] [phone] 01/02/2025 9:30 AM EDT Office Visit [facility] Hematology Oncology [address] [place] [phone] Zechariah Meraz MD [address] [place] [phone] 01/14/2025 10:30 AM EDT Appointment [facility] Radiation Oncology [address] [place] [phone] No Charles NP [address] [place] [address] documented as of this encounter Goals Goal Patient Goal Type Associated Problems Recent Progress Patient-Stated? Author LTG General No Xi Braun, BOMB SQUAD COMMANDER Note: Pt will consume least restrictive PO diet without changes to medical or respiratory status to maintain adequate oral nutrition hydration STG No Xi Braun, BOMB SQUAD COMMANDER Note: Pt will participate in development of personalized HEP and perform 3-4xs/wk with min assist for modifications STG Xi Morris, BOMB SQUAD COMMANDER Note: Pt will participate in ongoing education re dysphagia s/p chemoradiation and techniques for symptom management Xi Ireland, BOMB SQUAD COMMANDER Note: Pt will consume recommended diet textures and utilize swallow strategies given min verbal or visual cues documented as of this encounter Visit Diagnoses Not on filedocumented in this encounter Care Teams Neurology Nurse Relationship Specialty Start Date End Date Leilani Veloz MD [facility] [address] PCP - General Internal Medicine 06/08/18 documented as of this encounter
--- OUTSIDE RECORDS SUMMARY | 2024-10-14 09:35 | XMS_ITS | Encounter Summary ---
Author Organization [facility] Address [address] [place] [address] Care Team Providers Care Rolling Machine Operator Name Role Phone Leilani Veloz MD Primary Care Provider [phone] Encounter Details Date Type Department Care Team (Late st Contact Info) Description 04/23/2024 10:48 AM EDT Hospital Encounter TH HISTORIC ENCOUNTERS [...] Travel History Travel Start Travel End [place] 09/16/2024 09/20/2024 documented as of this encounter [...] Progress Notes * Historical, Notes Results - 04/23/2024 11:00 AM EDT 1120- Pt arrived today for scheduled hydration. He reports continued rawness to throat but he does feel he has been able to eat and drink a little more. He has noted improvements to PO intake when eating soft/moist foods. Stable assessment otherwise without acute complaints or changes. Pt reports feeling rather well overall. Port accessed without diff. Hydration released and initiated. Pt restingcomfortably and watching TV at this time. Call conklin in reach. 1225- Hydration completed without incident. Next appts in place and reviewed. No further questions.Port flushed/deaccessed per protocol. Pt left unit, stable at D/C. documented in this encounter Plan of Treatment Upcoming Encounters Date Type Department Care Team (Late st Contact Info) Description 11/27/2024 1:00 PM EDT Appointment [facility] Infusion Center [address] [place] [phone] 01/02/2025 9:30 AM EDT Office Visit [facility] Hematology Oncology [address] [place] [phone] Zechariah Meraz MD [address] [place] [phone] 01/14/2025 10:30 AM EDT Appointment [facility] Radiation Oncology [address] [place] [phone] No Charles NP [address] [place] [address] documented as of this encounter Goals Goal Patient Goal Type Associated Problems Recent Progress Patient-Stated? Author LTG General No Xi Braun, MULE SPINNER Note: Pt will consume least restrictive PO diet without changes to medical or respiratory status to maintain adequate oral nutrition hydration STG General No Xi Braun, MULE SPINNER Note: Pt will participate in development of personalized HEP and perform 3-4xs/wk with min assist for modifications STG General No Xi Braun, MULE SPINNER Note: Pt will participate in ongoing education re dysphagia s/p chemoradiation and techniques for symptom management STG General No Xi Braun, MULE SPINNER Note: Pt will consume recommended diet textures and utilize swallow strategies given min verbal or visual cues documented as of this encounter Visit Diagnoses Not on filedocumented in this encounter Care Teams Rolling Machine Operator Relationship Specialty Start Date End Date Leilani Veloz MD [address] [place] [address] PCP - General Internal Medicine 06/08/18 documented as of this encounter
--- OUTSIDE RECORDS SUMMARY | 2024-10-14 09:35 | XMS_ITS | Encounter Summary ---
Author Organization [facility] Address [address] [place] [address] Care Team Providers Care Hockey Player Name Role Phone Leilani Veloz MD Primary Care Provider [phone] Encounter Details Date Type Department Care Team (Late st Contact Info) Description 04/11/2024 9:41 AM EDT Hospital Encounter TH HISTORIC ENCOUNTERS [...] EST Travel History Travel Start Travel End [place] 09/16/2024 09/20/2024 documented as of this encounter [...] Progress Notes * Historical, Notes Results - 04/11/2024 10:00 AM EDT 1000: PT arrives this morning for hydration. PT continues to report improvement to skin on neck irritation, redness resolved completely. PT also continues to report inability to intake orally, sts hecan swallow water now but that is it. PT also reports less thick secretions than in the past. Otherwise stable assessment. Port accessed without diff, +BR noted, flushed per protocol, hydration initiated. PT given water, denies concerns, call conklin in reach. 1105: Hydration completed without concern. Port flushed per protocol and deaccessed, dressing applied. PT provided with future apt reminders via calendar, denies other concerns, left unit. documented in this encounter Plan of Treatment Upcoming Encounters Date Type Department Care Team (Late st Contact Info) Description 11/27/2024 1:00 PM EDT Appointment [facility] Infusion Center [address] [place] [phone] 01/02/2025 9:30 AM EDT Office Visit [facility] Hematology Oncology [address] [place] [phone] Zechariah Meraz MD [address] [place] [phone] 01/14/2025 10:30 AM EDT Appointment [facility] Radiation Oncology [address] [place] [phone] No Charles NP [address] [place] [address] documented as of this encounter Goals Goal Patient Goal Type Associated Problems Recent Progress Patient-Stated? Author LTG General No Xi Braun, COMMERCIAL CLEANER Note: Pt will consume least restrictive PO diet without changes to medical or respiratory status to maintain adequate oral nutrition hydration STG General No Xi Braun, COMMERCIAL CLEANER Note: Pt will participate in development of personalized HEP and perform 3-4xs/wk with min assist for modifications STG General No Xi Braun, COMMERCIAL CLEANER Note: Pt will participate in ongoing education re dysphagia s/p chemoradiation and techniques for symptom management STG General No Xi Braun, COMMERCIAL CLEANER Note: Pt will consume recommended diet textures and utilize swallow strategies given min verbal or visual cues documented as of this encounter Visit Diagnoses Not on filedocumented in this encounter Care Teams Hockey Player Relationship Specialty Start Date End Date Leilani Veloz MD [address] [place] [address] PCP - General Internal Medicine 06/08/18 documented as of this encounter
--- OUTSIDE RECORDS SUMMARY | 2024-10-14 09:36 | XMS_ITS | Encounter Summary ---
Author Organization [facility] Address [address] [place] [address] Care Team Providers Care Rn Assessment Name Role Phone Leilani Veloz MD Primary Care Provider [phone] Encounter Details Date Type Department Care Team (Late st Contact Info) Description 02/21/2024 9:30 AM EDT Hospital Encounter TH HISTORIC ENCOUNTERS [...] EST Travel History Travel Start Travel End [place] 09/16/2024 09/20/2024 documented as of this encounter [...] Progress Notes * Historical, Notes Results - 02/21/2024 9:30 AM EDT 1000- Pt arrived today, accompanied by girlfriend, for scheduled hydration and pre treatment labs. Pt reports the doctor was concerned I was becoming too dehydrated. They checked my blood pressure 3different ways and it showed I was dehydrated. Pt does report occasional dizziness, especially with positional changes. Pt feels his throat is starting to progressively worsen and become very raw making it very difficult to eat and drink. Pt also feels nothing he tries to eat via mouth tastes good. G tube in place and pt has been using for feeds without issue. Tolerating well. Encouraged pt to add in additional hydration throughout the day. Also encouraged pt to try making smoothies or milkshakes with ensure and other things like ice cream and fruit. Pt utilizing magic mouthwash with some effect. BP soft in the 90s. Port accessed without diff. Labs collected/sent stat. Hydration initiated.Pt resting comfortably at this time. Call conklin in reach. 1100- Labs resulted and reviewed with NANCY Dennis. Labs WNL except a noted increase to pt creatininefrom 0.86 to 1.51. Orders for an additional 1 liter NS obtained. Pt is due for chemotherapy with cisplatin tomorrow. Plan is for pt to arrive to infusion room at 9am prior to RT appt for repeat STAT CMP. Pt will go to RT and once labs result, will review with composition weatherboard applier provider as Dr. Meraz is off.Pt made aware of plan. Verbalizes understanding and agrees. No further questions or concerns at this time. Call conklin in reach. 1210- Hydration completed without incident. BP rechecked and improved to 112/79. Pt does not feel he has to pee but states I am starting to feel the urge so I will definitely go when I am home. Encouraged pt to continue hydrating at home as well. Reviewed plan for tomorrow. No further questions. Port flushed/deaccessed per protocol. Pt left unit, stable at D/C. documented in this encounter Plan of Treatment Upcoming Encounters Date Type Department Care Team (Late st Contact Info) Description 11/27/2024 1:[address] [facility] Infusion Center [address] [place] [address] 2[address] [place] [phone] 01/02/2025 9:30 AM EDT Office Visit [facility] Hematology Oncology [address] [place] [phone] Zechariah Meraz MD [address] [place] [phone] 01/14/2025 10:[address] [facility] Radiation Oncology [address] [phone] No Charles NP [address] [place] [address] documented as of this encounter Goals Goal Patient Goal Type Associated Problems Recent Progress Patient-Stated? Author Xi Mulligan, DESCRIPTIVE CATALOG LIBRARIAN Note: Pt will consume least restrictive PO diet without changes to medical or respiratory status to maintain adequate oral nutrition hydration [facility] Xi Morris, DESCRIPTIVE CATALOG LIBRARIAN Note: Pt will participate in development of personalized HEP and perform 3-4xs/wk with min assist for modifications Xi Ireland, DESCRIPTIVE CATALOG LIBRARIAN Note: Pt will participate in ongoing education re dysphagia s/p chemoradiation and techniques for symptom management [facility] Xi Morris, DESCRIPTIVE CATALOG LIBRARIAN Note: Pt will consume recommended diet textures and utilize swallow strategies given min verbal or visual cues documented as of this encounter Visit Diagnoses Not on filedocumented in this encounter Care Teams Rn Assessment Relationship Specialty Start Date End Date Leilani Veloz MD [address] [place], [place] PCP - General Internal Medicine 06/08/18 documented as of this encounter
--- OUTSIDE RECORDS SUMMARY | 2024-10-14 09:36 | XMS_ITS | Encounter Summary ---
Author Organization [facility] Address [address] [place] [address] Care Team Providers Care Repeater Operator Name Role Phone Leilani Veloz MD Primary Care Provider [phone] Encounter Details Date Type Department Care Team (Late st Contact Info) Description 03/25/2024 11:04 AM EDT Hospital Encounter TH HISTORIC ENCOUNTERS [...] Progress Notes * Historical, Notes Results - 03/25/2024 11:30 AM EDT 1150 Donovan arrives for three times weekly hydration. He has completed his radiation therapy and isfeeling well. He is still unable to tolerate anything by mouth and states that things dont have anytaste. He is using his G tube appropriately. IV started, port accessed and call conklin in reach. 1230 resting, hydration infusing without incident. 1300 hydration complete without incident. Left unit ambulatory. documented in this encounter Plan of Treatment Upcoming Encounters Date Type Department Care Team (Late st Contact Info) Description 11/27/2024 1:00 PM EDT Appointment [facility] Infusion Center [address] [place] [phone] 01/02/2025 9:30 AM EDT Office Visit [facility] Hematology Oncology [address] [place] [phone] Zechariah Meraz MD [address] [place] [phone] 01/14/2025 10:30 AM EDT Appointment [facility] Radiation Oncology [address] [place] [phone] No Charles NP [address] [place] [address] documented as of this encounter Goals Goal Patient Goal Type Associated Problems Recent Progress Patient-Stated? Author LTG General Xi Devlin, MANAGER SIGN Note: Pt will consume least restrictive PO diet without changes to medical or respiratory status to maintain adequate oral nutrition hydration STG Xi Morris, MANAGER SIGN Note: Pt will participate in development of personalized HEP and perform 3-4xs/wk with min assist for modifications Xi Ireland, MANAGER SIGN Note: Pt will participate in ongoing education re dysphagia s/p chemoradiation and techniques for symptom management STG Xi Morris, MANAGER SIGN Note: Pt will consume recommended diet textures and utilize swallow strategies given min verbal or visual cues documented as of this encounter Visit Diagnoses Not on filedocumented in this encounter Care Teams Repeater Operator Relationship Specialty Start Date End Date Leilani Veloz MD [address] [facility] [address] [place], [place] PCP - General Internal Medicine 06/08/18 documented as of this encounter
--- OUTSIDE RECORDS SUMMARY | 2024-10-14 09:36 | XMS_ITS | Encounter Summary ---
Author Organization [facility] Address [address] [place] [address] Care Team Providers Care Certified Medical Asst Name Role Phone Leilani Vleoz MD Primary Care Provider [phone] Encounter Details Date Type Department Care Team (Late st Contact Info) Description 02/15/2024 9:34 AM EDT Hospital Encounter TH HISTORIC ENCOUNTERS [...] EST Travel History Travel Start Travel End [place] 09/16/2024 09/20/2024 documented as of this encounter [...] Progress Notes * Historical, Notes Results - 02/15/2024 9:30 AM EDT Pt arrives today for D15C1 treatment. Pt states he has been feeling ok but noted to have some tastechanges and having trouble swallowing . Pt eating soft foods and staying away from alcohol and acidic foods. Pt reports he felt better after the second treatment than the first. RIGHT upper chest port accessed per protocol. Positive blood return noted. 1015 pre hydration infusing. Pt tolerating well. Call conklin in reach. 1102 pt up to bathroom, voided 375ml via urinal 1120 pt voided 400ml clear yellow urine via urinal. Medication released. 1230 pre hydration infusion complete. Premed infusing. Pt tolerating well. Pt eating lunch. Call conklin in reach. 1305 Cisplatin infusing. Pt continues to void in restroom. Pt voiding adequately. No need to further keep record. 1515 Cisplatin complete. Pt tolerated well. Port deaccessed without incident. Appointments in placefor next treatment. Stable at discharge. documented in this encounter Plan of Treatment Upcoming Encounters Date Type Department Care Team (Late st Contact Info) Description 11/27/2024 1:00 PM EDT Appointment [facility] Infusion Center [address] [place] [phone] 01/02/2025 9:30 AM EDT Office Visit [facility] Hematology Oncology [address] [place] [phone] Zechariah Meraz MD [address] [place] [phone] 01/14/2025 10:30 AM EDT Appointment [facility] Radiation Oncology [address] [place] [phone] No Charles NP [address] [place] [address] documented as of this encounter Goals Goal Patient Goal Type Associated Problems Recent Progress Patient-Stated? Author LTG General No Xi Braun, MANUFACTURING TEAM LEADER Note: Pt will consume least restrictive PO diet without changes to medical or respiratory status to maintain adequate oral nutrition hydration STG General No Xi Braun B, MANUFACTURING TEAM LEADER Note: Pt will participate in development of personalized HEP and perform 3-4xs/wk with min assist for modifications Xi Ireland, MANUFACTURING TEAM LEADER Note: Pt will participate in ongoing education re dysphagia s/p chemoradiation and techniques for symptom management [facility] Xi Morris, MANUFACTURING TEAM LEADER Note: Pt will consume recommended diet textures and utilize swallow strategies given min verbal or visual cues documented as of this encounter Visit Diagnoses Not on filedocumented in this encounter Care Teams Certified Medical Asst Relationship Specialty Start Date End Date Leilani Veloz MD [facility] [address] PCP - General Internal Medicine 06/08/18 documented as of this encounter
--- OUTSIDE RECORDS SUMMARY | 2024-10-14 09:36 | XMS_ITS | Encounter Summary ---
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 90 tablet 1 08/12/2024 atorvastatin (LIPITOR) 80 mg tablet Take 40 mg by mouth every other day. Every other day sildenafiL (VIAGRA) 100 mg tablet Take 1 tablet (100 mg total) by mouth 2 (two) times a week. 06/23/2024 valACYclovir (VALTREX) 1 gram tablet Take 1 tablet (1,000 mg total) by mouth. documented as of this encounter Discharge Disposition Disposition Code Departure Means Destination Home or Self Care documented in this encounter Progress Notes * Brigid Méndez RN - 10/09/2024 9:30 AM EDT 0933: PT arrives this morning for every 8 week port flush. PT continues to report feeling well appetite is stable and pain to neck has significantly improved, so much that he is able to lie flat sleeping now. Port accessed, +BR noted, flushed per protocol with multiple flushes, deaccessed, dressingapplied. PT provided with future apt reminders via calendar, verbalized understanding, left unit amb, stable at D/C. documented in this encounter Plan of Treatment Upcoming Encounters Date Type Department Care Team (Late st Contact Info) Description 11/27/2024 1:00 PM EDT Appointment [facility] Infusion Center [address] [place] [phone] 01/02/2025 9:30 AM EDT Office Visit [facility] Hematology Oncology [address] [place] [phone] Zechariah Meraz MD [address] [place] [phone] 01/14/2025 10:30 AM EDT Appointment [facility] Radiation Oncology [address] [place] [phone] No Charles NP [address] [place] [address] documented as of this encounter Goals Goal Patient Goal Type Associated Problems Recent Progress Patient-Stated? Author LTG General No Aparna, Xi B, CARDIOLOGY NURSE PRACTITIONER Note: Pt will consume least restrictive PO diet without changes to medical or respiratory status to maintain adequate oral nutrition hydration [facility] Xi Morris, CARDIOLOGY NURSE PRACTITIONER Note: Pt will participate in development of personalized HEP and perform 3-4xs/wk with min assist for modifications Xi Ireland, CARDIOLOGY NURSE PRACTITIONER Note: Pt will participate in ongoing education re dysphagia s/p chemoradiation and techniques for symptom management Xi Ireland, CARDIOLOGY NURSE PRACTITIONER Note: Pt will consume recommended diet textures and utilize swallow strategies given min verbal or visual cues documented as of this encounter Visit Diagnoses Diagnosis Malignant neoplasm of base of tongue (CMS/HCC)- Primary Malignant neoplasm of base of tongue documented in this encounter Administered Medications Inactive Administered Medications - up to 3 most recent administrations Medication Order MAR Action Action Date Dose Rate Site sodium chloride 0.9 % flush 10 mL 10 mL, intravenous, As needed, line care, Starting on Mon10/09/24 at 1503Indications:Malignant neoplasm of base of tongue (CMS/HCC) Given 10/09/2024 9:30 AM EDT 10 mL documented in this encounter Orders Medications Ordered That Eduardo ht Not Have Been Administered Count Last Ordered Date First Ordered Date sodium chloride 0.9 % flush 10 mL 1 025 documented in this encounter Care Teams Residential Service Technician Relationship Specialty Start Date End Date Leilani Veloz MD [address] [facility] [address] [place], [place] PCP - General Internal Medicine 06/08/18 documented as of this encounter
--- OUTSIDE RECORDS SUMMARY | 2024-10-14 09:36 | XMS_ITS | Encounter Summary ---
Author Organization [facility] Address [address] [place] [address] Care Team Providers Care Tank Car Mechanic Name Role Phone Leilani Veloz MD Primary Care Provider Encounter Details Date Type Department Care Team (Late st Contact Info) Description 03/22/2024 8:49 AM EDT Hospital Encounter TH HISTORIC ENCOUNTERS [...] EST Travel History Travel Start Travel End [place] 09/16/2024 09/20/2024 documented as of this encounter [...] Progress Notes * Historical, Notes Results - 03/22/2024 9:00 AM EDT 0910- Pt arrived today for scheduled hydration. Pt completed both chemotherapy and RT on Monday.He reports tolerating carboplatin without issue. Pt denies any acute complaints or changes since last visit. He continues to tolerate tube feeds. He attempts soft foods but has difficulty doing so. Pt also expressed being prescribed short acting morphine when he was hospitalized. He has utilized this throughout the day with good affect. Pt only taking the MS Contin ER 30mg at night because it hits me hard. Pt is running low on the short acting morphine and would like Dr. Meraz to send in script. This RN spoke to Dr. Meraz who will send this in. Pt made aware. Port accessed without diff. Hydration initiated. Pt resting comfortably at this time. Call conklin in reach. 1016- Hydration completed without incident. Pt prefers morphine script be sent to the [facility] in the [facility]. This RN notified Dr. Meraz. No further questions. Next appts in place and reviewed. Port flushed/deaccessed per protocol. Pt left unit, stable at D/C. documented in this encounter Plan of Treatment Upcoming Encounters Date Type Department Care Team (Late st Contact Info) Description 11/27/2024 1:00 PM EDT Appointment [facility] Infusion Center [address] [place] [phone] 01/02/2025 9:30 AM EDT Office Visit [facility] Hematology Oncology [address] [place] [phone] Zechariah Meraz MD [address] [place] [address] 01/14/2025 10:30 AM EDT Appointment [facility] Radiation Oncology [address] [place] [phone] No Charles NP [address] [place] [address] documented as of this encounter Goals Goal Patient Goal Type Associated Problems Recent Progress Patient-Stated? Author LTG General No Xi Braun, RUBY ON RAILS SOFTWARE DEVELOPER Note: Pt will consume least restrictive PO diet without changes to medical or respiratory status to maintain adequate oral nutrition hydration [facility] Xi Morris, RUBY ON RAILS SOFTWARE DEVELOPER Note: Pt will participate in development of personalized HEP and perform 3-4xs/wk with min assist for modifications Xi Ireland, RUBY ON RAILS SOFTWARE DEVELOPER Note: Pt will participate in ongoing education re dysphagia s/p chemoradiation and techniques for symptom management [facility] Xi Morris, RUBY ON RAILS SOFTWARE DEVELOPER Note: Pt will consume recommended diet textures and utilize swallow strategies given min verbal or visual cues documented as of this encounter Visit Diagnoses Not on filedocumented in this encounter Care Teams Tank Car Mechanic Relationship Specialty Start Date End Date Leilani Veloz MD [address] [facility] [address] [place], [place] PCP - General Internal Medicine 06/08/18 documented as of this encounter
--- OUTSIDE RECORDS SUMMARY | 2024-10-14 09:36 | XMS_ITS | Encounter Summary ---
Author Organization [facility] Address [address] [place] [address] Care Team Providers Care Stock Counter Name Role Phone Leilani Veloz MD Primary Care Provider [phone] Encounter Details Date Type Department Care Team (Late st Contact Info) Description 03/29/2024 10:03 AM EDT Hospital Encounter TH HISTORIC ENCOUNTERS [...] EST Travel History Travel Start Travel End [place] 09/16/2024 09/20/2024 documented as of this encounter [...] Progress Notes * Historical, Notes Results - 03/29/2024 10:30 AM EDT 1050: PT arrives this morning for hydration. PT denies any acute concerns, continues to report taste changes, and pain with eating and swallowing. Otherwise stable assessment. Port accessed without diff, +BR noted, flushed per protocol, hydration initiated. PT given some ice to suck on and a cup tospit in, denies concerns, call conklin in reach. 1155: Hydration completed without concern. PT provided with future apt reminders via calendar. Portflushed per protocol and deaccessed, dressing applied. PT denies other concerns, left unit, stable at D/C. documented in this encounter Plan of Treatment Upcoming Encounters Date Type Department Care Team (Late st Contact Info) Description 11/27/2024 1:00 PM EDT Appointment [facility] Infusion Center [address] [place] [phone] 01/02/2025 9:30 AM EDT Office Visit [facility] Hematology Oncology [address] [place] [phone] Zechariah Meraz MD [address] [place] [address] 01/14/2025 10:30 AM EDT Appointment [facility] Radiation Oncology [address] [place] [phone] No Charles NP [address] [place] [address] documented as of this encounter Goals Goal Patient Goal Type Associated Problems Recent Progress Patient-Stated? Author LTG General Xi Devlin, VENEREAL DISEASE INVESTIGATOR Note: Pt will consume least restrictive PO diet without changes to medical or respiratory status to maintain adequate oral nutrition hydration [facility] Xi Morris, VENEREAL DISEASE INVESTIGATOR Note: Pt will participate in development of personalized HEP and perform 3-4xs/wk with min assist for modifications [facility] Xi Morris, VENEREAL DISEASE INVESTIGATOR Note: Pt will participate in ongoing education re dysphagia s/p chemoradiation and techniques for symptom management STG General No Xi Braun, VENEREAL DISEASE INVESTIGATOR Note: Pt will consume recommended diet textures and utilize swallow strategies given min verbal or visual cues documented as of this encounter Visit Diagnoses Not on filedocumented in this encounter Care Teams Stock Counter Relationship Specialty Start Date End Date Leilani Veloz MD 12[address] [facility] [address] [place], [place] PCP - General Internal Medicine 06/08/18 documented as of this encounter
--- OUTSIDE RECORDS SUMMARY | 2024-10-14 09:36 | XMS_ITS ---
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 Current Oncology Plans OP HYDRATION* Plan Start Date:02/29/2024 Plan Provider:Zechariah Meraz MD Linked Problems Malignant neoplasm of base o f tongue (HCC) Treatment Medications sodium chloride (NS) 0.9 % Past Plans ONCOLOGY TREATMENT Plan Name Start Date Discontinue Date Treatment Medications Discontinue Reason Plan Provider Cycles [facility] OP WEEKLY CARBOPLATIN (HEAD & NECK) 024 04/12/2024 albuterol (PROVENTIL)CARBOplatin (PARAPLATIN) chemo infusion (by AUC)dexamethasone (DECADRON) DOSE > 10 mg IVPBdexamethasone sod phosphate PF (DECADRON)diphenhydrAMIN E (BENADRYL)EPINEPHrinefam otidine (PF) (PEPCID)hydrocortisone (SOLU-CORTEF) IVondansetron (ZOFRAN-ODT)palonosetron (ALOXI)prochlorperazine (COMPAZINE)Saline Flush 0.9 %sodium chloride (NS) 0.9 %sodium chloride 0.9% bolus (NS) Therapy Complete Zechariah Meraz MD 1 of 1 cycle started [facility] OP CISPLATIN WEEKLY 024 03/05/2024 albuterol (PROVENTIL)CISplatin (PLATINOL) chemo infusion No mannitolcustom IV infusion builderdexamethasone (DECADRON)diphenhydrAMIN E (BENADRYL)EPINEPHrinefam otidine (PF) (PEPCID)fosaprepitant IV Piggybackhydrocortisone (SOLU-CORTEF) IVpalonosetron (ALOXI)Saline Flush 0.9 %sodium chloride (NS) 0.9 %sodium chloride 0.9% bolus (NS) Not Tolerated Zechariah Meraz MD 1 of 3 cycles started [facility] OP CISPLATIN 100MG/M2 (FOR USE WITH CONCURRENT RADIATION) (3 HRS) 024 12/29/2023 albuterol (PROVENTIL)Aprepitant (EMEND)CISplatin (PLATINOL) chemo infusion No mannitolcustom IV infusion builderdexamethasone (DECADRON)diphenhydrAMIN E (BENADRYL)EPINEPHrinefam otidine (PF) (PEPCID)hydrocortisone (SOLU-CORTEF) IVondansetron (ZOFRAN)palonosetron (ALOXI)prochlorperazine (COMPAZINE)Saline Flush 0.9 %sodium chloride (NS) 0.9 %sodium chloride 0.9% bolus (NS) Entered in error Ana Nicole, DO Treatment not started Radiation Treatments * No radiation treatments are documented for this patient in [facility]. Treatments may have been administered in another system.
--- OUTSIDE RECORDS SUMMARY | 2024-10-14 09:36 | XMS_ITS | Encounter Summary ---
Author Organization [facility] Address [address] [place] [address] Care Team Providers Care Capacitor Inspector Name Role Phone Leilani Veloz MD Primary Care Provider [phone] Encounter Details Date Type Department Care Team (Late st Contact Info) Description 04/01/2024 10:56 AM EDT Hospital Encounter TH HISTORIC ENCOUNTERS [...] EST Travel History Travel Start Travel End [place] 09/16/2024 09/20/2024 documented as of this encounter [...] Progress Notes * Historical, Notes Results - 04/01/2024 11:00 AM EDT 1140- Pt arrived today for scheduled hydration. Pt reports feeling really good! overall. Continues to attempt to eat but unable to do so. Pt will be going to the [place] on Monday after OV and feels well enough not to come in for hydration. He will keep Monday's scheduled hydration appt. Portaccessed without diff. Hydration released and initiated. Pita at chairside with pt. Call conklin in reach. 1245- Hydration completed without incident. Pt drank some chicken broth with Pita at chairside. Rested comfortably throughout treatment. Next appts in place and reviewed. No further questions. Portflushed/deaccessed per protocol. Pt left unit, stable at D/C. documented in this encounter Plan of Treatment Upcoming Encounters Date Type Department Care Team (Late st Contact Info) Description 11/27/2024 1:00 PM EDT Appointment [facility] Infusion Center [address] [place] [phone] 01/02/2025 9:30 AM EDT Office Visit [facility] Hematology Oncology [address] [place] [phone] Zechariah Meraz MD [address] [place] [phone] 01/14/2025 10:30 AM EDT Appointment [facility] Radiation Oncology [address] [place] [phone] No Charles NP [address] [place] [address] documented as of this encounter Goals Goal Patient Goal Type Associated Problems Recent Progress Patient-Stated? Author LTG General No Xi Braun, BOILER WATER TESTER Note: Pt will consume least restrictive PO diet without changes to medical or respiratory status to maintain adequate oral nutrition hydration [facility] General Xi Devlin, BOILER WATER TESTER Note: Pt will participate in development of personalized HEP and perform 3-4xs/wk with min assist for modifications STG General No Xi Braun B, BOILER WATER TESTER Note: Pt will participate in ongoing education re dysphagia s/p chemoradiation and techniques for symptom management Xi Ireland, BOILER WATER TESTER Note: Pt will consume recommended diet textures and utilize swallow strategies given min verbal or visual cues documented as of this encounter Visit Diagnoses Not on filedocumented in this encounter Care Teams Capacitor Inspector Relationship Specialty Start Date End Date Leilani Veloz MD [address] [place] [address] PCP - General Internal Medicine 06/08/18 documented as of this encounter
--- OUTSIDE RECORDS SUMMARY | 2024-10-14 09:36 | XMS_ITS | Encounter Summary ---
Author Organization [facility] Address [address] [place] [address] Care Team Providers Care Radio Installer Name Role Phone Leilani Veloz MD Primary Care Provider [phone] Encounter Details Date Type Department Care Team (Late st Contact Info) Description 04/09/2024 10:00 AM EDT Hospital Encounter TH HISTORIC ENCOUNTERS [...] EST Travel History Travel Start Travel End [place] 09/16/2024 09/20/2024 documented as of this encounter [...] Progress Notes * Historical, Notes Results - 04/09/2024 10:00 AM EDT 1100: PT arrives for hydration and labs today. PT denies any acute concerns, sts he is having some constipation although relief from magnesium. PTs L leg continues to be swollen r/t dvt and PT sts heis monitoring it. PTs neck continues to improve regarding redness and irritation, otherwise stable a ssessment. Port accessed without diff, +BR noted, labs obtained and sent, flushed per protocol, hydration initiated. PT sts he only has a few days left of eliquis and hoping we can refill it, Dr. Meraz made aware. PT denies other concerns, call conklin in reach. 1200: Per Dr. Meraz he will refill PTs RX for Eliquis 5mg BID, PT made aware and thankful. 1225: Hydration completed without concern. Port flushed per protocol and deaccessed, dressing applied. PT provided with future apt reminders, denies other concerns, left unit, stable at D/C. documented in this encounter Plan of Treatment Upcoming Encounters Date Type Department Care Team (Late st Contact Info) Description 11/27/2024 1:00 PM EDT Appointment [facility] Infusion Center [address] [place] [phone] 01/02/2025 9:30 AM EDT Office Visit [facility] Hematology Oncology [address] [place] [phone] Zechariah Meraz MD [address] [place] [phone] 01/14/2025 10:30 AM EDT Appointment [facility] Radiation Oncology [address] [place] [phone] No Charles NP [address] [place] [address] documented as of this encounter Goals Goal Patient Goal Type Associated Problems Recent Progress Patient-Stated? Author LTG General No Xi Braun, CORE FINISHER Note: Pt will consume least restrictive PO diet without changes to medical or respiratory status to maintain adequate oral nutrition hydration STG General No Xi Braun, CORE FINISHER Note: Pt will participate in development of personalized HEP and perform 3-4xs/wk with min assist for modifications Xi Ireland, CORE FINISHER Note: Pt will participate in ongoing education re dysphagia s/p chemoradiation and techniques for symptom management Xi Ireland, CORE FINISHER Note: Pt will consume recommended diet textures and utilize swallow strategies given min verbal or visual cues documented as of this encounter Visit Diagnoses Not on filedocumented in this encounter Care Teams Radio Installer Relationship Specialty Start Date End Date Leilani Veloz MD [address] PCP - General Internal Medicine 06/08/18 documented as of this encounter
--- OUTSIDE RECORDS SUMMARY | 2024-10-14 09:36 | XMS_ITS | Encounter Summary ---
Author Organization [facility] Address [address] [place] [address] Care Team Providers Care Panel Beater Name Role Phone Leilani Veloz MD Primary Care Provider [phone] Encounter Details Date Type Department Care Team (Late st Contact Info) Description 02/08/2024 9:32 AM EDT Hospital Encounter TH HISTORIC ENCOUNTERS [...] EST Travel History Travel Start Travel End [place] 09/16/2024 09/20/2024 documented as of this encounter [...] Progress Notes * Historical, Notes Results - 02/08/2024 9:30 AM EDT 1000: PT arrives today for second cycle of Cisplatin after radiation treatment this morning. PT hassome generalized redness to his neck post radiation. PT also reports his throat has been sore and scratchy feeling , denies pain to throat. No issues swallowing. Encouraged pt to use baking soda rinses as needed and continue to monitor for worsening discomfort/need for magic mouthwash. PT reports some mild fatigue for a few days post chemo treatment as well as mild nausea, denies needing to use home medication. Pt also reports some constipation although relief from stool softener. Last week PThad rash to bilateral lower legs from hiking, no rash noted today. Otherwise stable assessment. PT urinated 500mL clear yellow urine on arrival and sts he drank a lot of water prior to arriving. Callbell in reach, no concerns at this time, Pt given ice water and oreos. 1030: Port accessed without diff, +BR, flushed per protocol, fluids initiated, and premedications administered. PT has urinated 400mLs clear yellow output, totaling 900mLs this morning, chemo released. PT has call conklin in reach no concerns at this time. 1115: PT completed Emend infusion without issue. 1L bag of NS with Mg and K+ initiated and PT urinated again 500mL of clear yellow urine output. Call conklin in reach, no concerns at this time. 1220: PT well tolerated first 500mL of prehydration. Cisplatin initiated. PT up to the bathroom again to urinate with an even steady gait. PT given meal tray and PT has no other concerns, call conklin in reach. 1330: Cisplatin infusion completed PT well tolerated without concern. Post hydration initiated. PT ate lunch and up to the bathroom again this hour. Call conklin in reach PT watching tv. 1440: PT completed post-hydration without concern. PT has no further questions or concerns. PT aware of next weeks appts denies needing a reminder sheet. PTs port flushed per protocol and deaccessed.PT left unit, stable at D/C. Brigid Méndez RN documented in this encounter Plan of Treatment Upcoming Encounters Date Type Department Care Team (Late st Contact Info) Description 11/27/2024 1:00 PM EDT Appointment [facility] Infusion Center [address] [place] [phone] 01/02/2025 9:30 AM EDT Office Visit [facility] Hematology Oncology [address] [place] [phone] Zechariah Meraz MD [address] [place] [phone] 01/14/2025 10:30 AM EDT Appointment [facility] Radiation Oncology [address] [phone] No Charles NP [address] [place] [address] documented as of this encounter Goals Goal Patient Goal Type Associated Problems Recent Progress Patient-Stated? Author LTXi Ramirez, BUSINESS MACHINES TEACHER Note: Pt will consume least restrictive PO diet without changes to medical or respiratory status to maintain adequate oral nutrition hydration STG Xi Morris, BUSINESS MACHINES TEACHER Note: Pt will participate in development of personalized HEP and perform 3-4xs/wk with min assist for modifications [facility] Xi Morris, BUSINESS MACHINES TEACHER Note: Pt will participate in ongoing education re dysphagia s/p chemoradiation and techniques for symptom management [facility] Xi Morris, BUSINESS MACHINES TEACHER Note: Pt will consume recommended diet textures and utilize swallow strategies given min verbal or visual cues documented as of this encounter Visit Diagnoses Not on filedocumented in this encounter Care Teams Panel Beater Relationship Specialty Start Date End Date Leilani Veloz MD [address] [place], [place] PCP - General Internal Medicine 06/08/18 documented as of this encounter
--- OUTSIDE RECORDS SUMMARY | 2024-10-14 09:36 | XMS_ITS ---
Author Organization 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 Past Plans No past plan information found. Radiation Treatments * No radiation treatments are documented for this patient in [facility]. Treatments may have been administered in another system.
--- OUTSIDE RECORDS SUMMARY | 2024-10-14 09:36 | XMS_ITS | Clinical Summary ---
Author Organization [facility] Address [address] [place] [address] Care Team Providers Care Special Education Curriculum Specialist Name Role Phone Leilani Veloz MD Primary Care Provider [phone] Allergies No known active allergies Medications Medication Sig Dispensed Refills Start Date End Date Status atorvastatin (LIPITOR) tablet 80 mg Take 1 tablet (80 mg total) by mouth daily. 0 Active aspirin EC 81 MG tablet Take 1 tablet (81 mg total) by mouth daily. 0 Active valACYclovir (VALTREX) 1000 MG tablet Take 1 tablet (1,000 mg total) by mouth as needed. 0 Active lidocaine-prilocai ne (EMLA) cream Apply topically as needed. To port site 30 minutes prior to chemotherapy 30 g 0 12/28/2023 Active ondansetron (ZOFRAN) 8 MG tablet Take 1 tablet (8 mg total) by mouth every 8 (eight) hours as needed for nausea. 60 tablet 0 12/28/2023 Active prochlorperazine (COMPAZINE) 10 MG tablet Take 1 tablet (10 mg total) by mouth every 6 (six) hours as needed (chemotherapy associated nausea/vomiting). 30 tablet 0 12/28/2023 Active Benadryl-Lidocaine -Maalox (FIRST- BLM) mouthwash suspension 1:1:1 Swish and spit every 6 (six) hours as needed. 0 Active Morphine Sulfate ER (MS CONTIN) 30 MG TBCR Take 1 tablet (30 mg total) by mouth every 12 (twelve) hours. 60 tablet 0 03/05/2024 Active nystatin (MYCOSTATIN) 914556 UNIT/ML suspension Take 5 mL (500,000 Units total) by mouth 4 (four) times a day. Swish and swallow 4 times daily x 7 days 140 mL 0 03/13/2024 Active Eliquis DVT/PE Starter Pack 5 MG TBPK 0 03/12/2024 Active apixaban (ELIQUIS) 5 MG TABS tablet Take 1 tablet (5 mg total) by mouth every 12 (twelve) hours. 60 tablet 5 04/09/2024 Active morphine (MSIR) 15 MG tablet Take 1 tablet (15 mg total) by mouth every 4 (four) hours as needed for pain. Partial fill allowed cancer patient with poorly controlled pain 120 tablet 0 04/16/2024 Active apixaban (ELIQUIS) 5 MG TABS tablet Take 1 tablet (5 mg total) by mouth every 12 (twelve) hours. 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 Family History Medical History Relation Name Comments Cancer Mother Relation Name Status Comments Mother Social History Tobacco Use Types Packs/Day Years Used Date Smoking Tobacco: Former Cigarettes 1 34 Q uit: 2017 Smokeless Tobacco: Never Tobacco Cessation:Counseling Given: Not Answered Alcohol Use Standard Drinks/Week Comments Not Currently 0 (1 standard drink = 0.6 oz pur e alcohol) 2-3 drinks per day Sex and Gender Information Value Date Recorded Sex Assigned at Male 12/25/2023 3:09 PM EDT Gender Identity Not on file Sexual Orientation Not on file Job Start Date Occupation Industry Not on file Not on file Not on file Last Filed Vital Signs Vital Sign Reading Time Taken Comments Blood Pressure 119/77 04/30/2024 11:01 AM EDT Pulse 83 04/30/2024 11:01 AM EDT Temperature 36.9 ??C (98.5 ??F) 04/30/2024 11:01 AM E DT Respiratory Rate 18 04/26/2024 1:11 PM EDT Oxygen Saturation 98% 04/30/2024 11:01 AM EDT Inhaled Oxygen Concentration - - Weight 74.4 kg (164 lb) 05/02/2024 1:00 PM EDT Height 165.1 cm (5' 5 ) 04/03/2024 11:12 AM EDT Body Mass Index 27.29 04/03/2024 11:12 AM EDT Plan of Treatment Health Maintenance Due Date Last Done Comments Hepatitis C Screening 1965 Lung Cancer Screening (Low D ose CT) 1964 COVID-19 Vaccine (#1) 1969 Pneumococcal Vaccine (1 of 2 - PCV) 1970 Depression Screening 1976 BMI Counseling 1982 Preventative Health Evaluation 1982 DTap / Tdap / Td (1 - Tdap) 1983 Shingrix-Zoster Vaccine (1 of 2) 1983 Colon Cancer Screening (Colonoscopy) 2009 Influenza Vaccine (#1) 2024 RSV Adult > 60+ Yrs or Pregn ant (1 - 1-dose 75+ series) 2039 Hepatitis B Vaccines Aged Out No long er eligible based on patient's age to complete this topic RSV Ped < 20 months Aged Out No longe r eligible based on patient's age to complete this topic Care Teams Special Education Curriculum Specialist Relationship Specialty Start Date End Date Leilani Veloz MD [address] [place] [phone] PCP - General Internal Medicine 12/25/23
--- OUTSIDE RECORDS SUMMARY | 2024-10-14 09:36 | XMS_ITS | Encounter Summary ---
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 PT oriented to unit,policies, and procedures. PT provided with information folder regarding chemo medications, infusionsuite number and after hours number. PT also provided with Chemo and You booklet. Cisplatin handout provided and reviewed in detail. All questions and concerns addressed. PT reports a rash to bilateral legs below the knee, reddness and warmth noted. PT sts rash has been there about a week and hasimproved as previously his legs were swollen. No swelling noted today. PT sts this occurred after along hike in the sun. PT understands to monitor for redness spreading up his leg, and to call infusion suite with any worsening sx. PT also reports some loose stools and treated with imodium at home this morning. Otherwise stable assessment. Port accessed without diff, + Brisk BR, flushed per protocol. Pre hydration initiated and PT urinated 425mL at this time. Call conklin in reach, no concerns at this time. 1130: PT up to bathroom steady gait, urinated 500mL clear yellow urine. Call conklin in reach, no concerns at this time. 1200: PT up to bathroom steady gait, urinated 525mL clear yellow fluid. First 500mL of hydration completed and premedications administered. Call conklin in reach, PT eating lunch. 1310: PT well tolerated Emend without concern. Cisplatin initiated. PT sitting with Pita Architecture Manager and Chani speech pathologist. PT up to the bathroom again with more urine output. No concerns at this time, call conklin in reach. 1425: PT well tolerated Cisplatin without concern. Post Hydration initiated and PT has no concerns.Notified RT nurse, Angelica that pt will be late to appt as he is finishing post hydration. PT continues to use the bathroom without issue. Denies concerns at this time. Call conklin in reach. 1545: Post hydration completed without concern. Discharge instructions reviewed with PT and PT verbalizes understanding. PT also understands to call with any concerning sx. Future appts provided to PT via calendar. Port deaccessed and flushed per protocol. PT left unit to go to RT, stable at d/c. Brigid Méndez RN documented in this encounter Plan of Treatment Upcoming Encounters Date Type Department Care Team (Late st Contact Info) Description 11/27/2024 1:00 PM EDT Appointment [facility] In[facility] [address] [phone] 01/02/2025 9:30 AM EDT Office Visit [facility] Hematology Oncology [address] [place] [phone] Zechariah Meraz MD [address] [place] [phone] 01/14/2025 10:30 AM EDT Appointment [facility] Radiation Oncology [address] [phone] No Charles NP [address] [place] [address] documented as of this encounter Goals Goal Patient Goal Type Associated Problems Recent Progress Patient-Stated? Author LTG Xi Morris, NUCLEAR CONTROL ROOM OPERATOR Note: Pt will consume least restrictive PO diet without changes to medical or respiratory status to maintain adequate oral nutrition hydration STG Xi Morris, NUCLEAR CONTROL ROOM OPERATOR Note: Pt will participate in development of personalized HEP and perform 3-4xs/wk with min assist for modifications STG Xi Morris, NUCLEAR CONTROL ROOM OPERATOR Note: Pt will participate in ongoing education re dysphagia s/p chemoradiation and techniques for symptom management STG Xi Morris, NUCLEAR CONTROL ROOM OPERATOR Note: Pt will consume recommended diet textures and utilize swallow strategies given min verbal or visual cues documented as of this encounter Visit Diagnoses Diagnosis 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
--- OUTSIDE RECORDS SUMMARY | 2024-10-14 09:36 | XMS_ITS | Encounter Summary ---
Author Organization [facility] Address [address] [place] [address] Care Team Providers Care Workforce Analyst Name Role Phone Leilani Veloz MD Primary Care Provider [phone] Encounter Details Date Type Department Care Team (Late st Contact Info) Description 03/27/2024 10:41 AM EDT Hospital Encounter TH HISTORIC ENCOUNTERS [...] EST Travel History Travel Start Travel End [place] 09/16/2024 09/20/2024 documented as of this encounter [...] Progress Notes * Historical, Notes Results - 03/27/2024 11:00 AM EDT 1110- Pt arrived today for scheduled hydration and weekly labs. Pt reports feeling really well today and denies acute complaints or changes. He still struggles with swallowing foods, even soft, as hestates it feels raw, like I have a sun burn in my throat. Tolerating tube feeds without issue. Stable assessment otherwise. Port accessed without diff. Labs collected/sent stat. Hydration released and initiated. Pt resting comfortably and watching TV at this time. Call conklin in reach. 1227- Hydration completed without incident. Labs resulted and WNL. Next appt in place and additional appts requested. No further questions. Port flushed/deaccessed per protocol. Pt left unit, stable at D/C. documented in this encounter Plan of Treatment Upcoming Encounters Date Type Department Care Team (Late st Contact Info) Description 11/27/2024 1:00 PM EDT Appointment Infusion Center [address] [place] [phone] 01/02/2025 9:30 AM EDT Office Visit Hematology Oncology [address] [place] [phone] Zechariah Meraz MD [address] [place] [phone] 01/14/2025 10:30 AM EDT Appointment Radiation Oncology [address] [place] [phone] No Charles NP [address] [place] [address] documented as of this encounter Goals Goal Patient Goal Type Associated Problems Recent Progress Patient-Stated? Author LTG General No Xi Braun, HOSTING ENGINEER Note: Pt will consume least restrictive PO diet without changes to medical or respiratory status to maintain adequate oral nutrition hydration STG General No Xi Braun, HOSTING ENGINEER Note: Pt will participate in development of personalized HEP and perform 3-4xs/wk with min assist for modifications STG General No Xi Braun, HOSTING ENGINEER Note: Pt will participate in ongoing education re dysphagia s/p chemoradiation and techniques for symptom management STG Xi Morris, HOSTING ENGINEER Note: Pt will consume recommended diet textures and utilize swallow strategies given min verbal or visual cues documented as of this encounter Visit Diagnoses Not on filedocumented in this encounter Care Teams Workforce Analyst Relationship Specialty Start Date End Date Leilani Veloz MD [address] PCP - General Internal Medicine 06/08/18 documented as of this encounter
--- OUTSIDE RECORDS SUMMARY | 2024-10-14 09:36 | XMS_ITS | Encounter Summary ---
Author Organization [facility] Address [address] [place] [address] Care Team Providers Care Senior Materials Scientist Name Role Phone Leilani Veloz MD Primary Care Provider [phone] Encounter Details Date Type Department Care Team Description 02/08/2024 Social Work [facility] Oncology Services [address] [place] [address] Miguel Guillen, [facility] Social History Tobacco Use Types Packs/Day Years Used Date Smoking Tobacco: Former Cigarettes 1 34 Q uit: 2017 Smokeless Tobacco: Never Alcohol Use Standard Drinks/Week Comments Not Currently 0 (1 standard drink = 0.6 oz pur e alcohol) 2-3 drinks per day Sex and Gender Information Value Date Recorded Sex Assigned at Male 12/25/2023 3:09 PM EDT Gender Identity Not on file Sexual Orientation Not on file Job Start Date Occupation Industry Not on file Not on file Not on file documented as of this encounter Plan of Treatment Not on file documented as of this encounter Visit Diagnoses Not on filedocumented in this encounter Care Teams Senior Materials Scientist Relationship Specialty Start Date End Date Leilani Veloz MD [facility] [address] [phone] PCP - General Internal Medicine 12/25/23 documented as of this encounter
--- OUTSIDE RECORDS SUMMARY | 2024-10-14 09:36 | XMS_ITS | Encounter Summary ---
Author Organization [facility] Address [address] [place] [address] Care Team Providers Care Superintendent Overhead Distribution Name Role Phone Leilani Veloz MD Primary Care Provider [phone] Encounter Details Date Type Department Care Team (Late st Contact Info) Description 04/05/2024 12:45 PM EDT Hospital Encounter TH HISTORIC ENCOUNTERS [...] EST Travel History Travel Start Travel End [place] 09/16/2024 09/20/2024 documented as of this encounter [...] Progress Notes * Historical, Notes Results - 04/05/2024 1:00 PM EDT 1310: PT arrives today for hydration. PT reports improvement in energy levels mild fatigue only. Also improvement to neck irritation and no redness noted to neck. PT does have L lower extremity swelling as this is the leg with the dvt. PT encouraged to elevate legs tonight to help with swelling andmonitor himself for any new SOB, CP or cough, verbalized understanding. PT also sts he is still struggling to swallow anything by mouth, mild improvement using morphine. Otherwise stable assessment. Port accessed without diff, +BR noted, flushed per protocol and hydration initiated. PT denies concerns, call conklin in reach. 1420: Hydration completed without concern. PT provided with future hydration apt reminders. Port flushed per protocol and deaccessed, dressing applied. PT left unit, stable at D/C. documented in this encounter Plan of Treatment Upcoming Encounters Date Type Department Care Team (Late st Contact Info) Description 11/27/2024 1:00 PM EDT Appointment [facility] Infusion [facility] [address] [place] [phone] 01/02/2025 9:30 AM EDT Office Visit [facility] Hematology Oncology [address] [place] [phone] Zechariah Meraz MD [address] [place] [phone] 01/14/2025 10:30 AM EDT Appointment [facility] Radiation Oncology [address] [place] [phone] No Charles NP [address] [place] [address] documented as of this encounter Goals Goal Patient Goal Type Associated Problems Recent Progress Patient-Stated? Author LTG General No Xi Braun, CRM CAMPAIGN MANAGER Note: Pt will consume least restrictive PO diet without changes to medical or respiratory status to maintain adequate oral nutrition hydration STG General No Xi Braun, CRM CAMPAIGN MANAGER Note: Pt will participate in development of personalized HEP and perform 3-4xs/wk with min assist for modifications Xi Ireland, CRM CAMPAIGN MANAGER Note: Pt will participate in ongoing education re dysphagia s/p chemoradiation and techniques for symptom management Xi Ireland, CRM CAMPAIGN MANAGER Note: Pt will consume recommended diet textures and utilize swallow strategies given min verbal or visual cues documented as of this encounter Visit Diagnoses Not on filedocumented in this encounter Care Teams Superintendent Overhead Distribution Relationship Specialty Start Date End Date Leilani Veloz MD [address] [facility] [address] [place], [place] PCP - General Internal Medicine 06/08/18 documented as of this encounter
--- OUTSIDE RECORDS SUMMARY | 2024-10-14 09:36 | XMS_ITS ---
Author Organization [facility] Address [address] [facility] [place] [address] Care Team Providers Care Medical Records Receptionist Name Role Phone Chaddsemaj Leilani Primary Care Provider Unavailab Otto Castelan Unavailable [phone] REASON FOR VISIT cx 02/04 appt Encounters Encounter Location Date Provider Diagnosis [address] [phone] 01/29/2024 Otto Suh Plan Of Treatment No Information Progress Notes * LUTHERDonovan COURTNEYDOB:[birth year] (58 yo M)Acc No.[id number]:01/29/2024 Patient:?Donovan Ortiz :1965???Age:58 Y???Sex:Male Address:[address] [place] [phone] * true * Date:? Generated for Theodorei nishant/Melissa/eTransmitting on:?10/14/2024 09:36 AM EDT
--- OUTSIDE RECORDS SUMMARY | 2024-10-14 09:37 | XMS_ITS ---
Author Organization [facility] Address [address] [facility] [place] [address] Care Team Providers Care Seat Mender Name Role Phone Leilani Veloz Primary Care Provider Unavailab Otto Castelan Unavailable [phone] Encounters Encounter Location Date Provider Diagnosis [facility] [address] [phone] 02/05/2024 Otto Suh Plan Of Treatment No Information Progress Notes * Donovan VACADOB:[birth year] (59 yo M)Acc No.[id number]:02/05/2024 Progress Note Patient:Donovan COYLE Provider:?Otto Suh DPM :1965???Age:58 Y???Sex:Male Keven e:02/05/2024 Address:[address] [place], [place] [phone] Pcp:Leilani Veloz Subjective: * Chief Complaints: * ??? * Medical History:?Broken bone s, CAD (Cholesterol), High blood pressure, Stroke, Chicken pox. Objective: * Vitals:? Assessment: Plan: * Treatment: * Images: * The named appointment provid er may or may not be the originator of this progress note, and it is not deemed complete until electronically signed by the appointment provider. Sign off status: Pending * Provider:?Otto Suh DPM Date:?2023 Generated for Shay dillard/Melissa/eTellensmitting on:?10/14/2024 09:36 AM EDT
--- OUTSIDE RECORDS SUMMARY | 2024-10-14 09:37 | XMS_ITS | Encounter Summary ---
Author Organization [facility] Address [address] [place] [address] Care Team Providers Care Excel Vba Developer Name Role Phone Leilani Veloz MD Primary Care Provider [phone] Encounter Details Date Type Department Care Team (Late st Contact Info) Description 02/29/2024 9:39 AM EDT Hospital Encounter TH HISTORIC ENCOUNTERS [...] Travel History Travel Start Travel End [place] 09/16/2024 09/20/2024 documented as of this encounter [...] Progress Notes * Historical, Notes Results - 02/29/2024 9:30 AM EDT 1000- Pt arrived today for hydration. Pt originally was scheduled for chemotherapy. Unfortunately, pt scorer single continues to elevate and plts are also low. Chemo on hold this week and Dr. Meraz plans to start carbo next week. Pt aware of plan. All questions addressed. Pt reports dizziness at times, especially with positional changes. Pt continues with thick secretions making it diff to eat/drink. Pt states I don't sleep well at night now either because I feel like I have a lump in my throat. Pt continues utilizing tube feeds as often as possible. He is now crushing pills and taking them through his g-tube as he cannot swallow them. Vitals taken- hypotension noted. Pt reports taking Lisinopril and Amlodipine. This RN encouraged pt to monitor BP at home and to contact PCP for guidance and parameters as to when to hold BP meds. This RN will also write down most recent BP's for pt. Port accessed without diff. Hydration initiated. Pt resting comfortably at this time. Call conklin in reach. 1100- Pita, credentialing coordinator and Xi, HEALTH AND SAFETY CONSULTANT came to chairside assisting pt with feeds and exercises. Hydration completed without incident. BP checked and still found to be hypotensive. Second liter NS orders obtained. Fluids initiated. Pt up to BR without issue. Resting comfortably and watching TV at this time. Call conklin in reach. 1208- Hydration completed without incident. BP improved to 104/68. Pt states I really do feel muchbetter. It's interesting how a couple bags of fluids can make such a difference. Pt denies feelingdizzy upon standing and walking. Next appts in place and reviewed. No further questions. Port flushed/deaccessed per protocol. Pt left unit, stable at D/C. documented in this encounter Plan of Treatment Upcoming Encounters Date Type Department Care Team (Late st Contact Info) Description 11/27/2024 1:00 PM EDT Appointment [facility] Infusion Center [address] [phone] 01/02/2025 9:30 AM EDT Office Visit [facility] Hematology Oncology [address] [place] [phone] Zechariah Meraz MD [address] [place] [phone] 01/14/2025 10:30 AM EDT Appointment [facility] Radiation Oncology [address] [phone] No Charles, JANES [address] [place] [address] documented as of this encounter Goals Goal Patient Goal Type Associated Problems Recent Progress Patient-Stated? Author LTXi Ramirez, HEALTH AND SAFETY CONSULTANT Note: Pt will consume least restrictive PO diet without changes to medical or respiratory status to maintain adequate oral nutrition hydration [facility] Xi Morris, HEALTH AND SAFETY CONSULTANT Note: Pt will participate in development of personalized HEP and perform 3-4xs/wk with min assist for modifications Xi Ireland, HEALTH AND SAFETY CONSULTANT Note: Pt will participate in ongoing education re dysphagia s/p chemoradiation and techniques for symptom management [facility] Xi Morris, HEALTH AND SAFETY CONSULTANT Note: Pt will consume recommended diet textures and utilize swallow strategies given min verbal or visual cues documented as of this encounter Visit Diagnoses Not on filedocumented in this encounter Care Teams Excel Vba Developer Relationship Specialty Start Date End Date Leilani Veloz MD [address] [facility] [address] [place], [place] PCP - General Internal Medicine 06/08/18 documented as of this encounter
--- OUTSIDE RECORDS SUMMARY | 2024-10-14 09:37 | XMS_ITS ---
Author Organization [facility] Carlito sanchez [place] Address [address] [address] Care Team Providers Care Caser In Name Role Phone Chaddsemja Leilani Primary Care Provider Unavailab Otto Castelan Unavailable [phone] Allergies No Known Allergies REASON FOR VISIT Fungal Nails Medications Medication SIG (Take, Route, Frequency, Duration) Notes Start Date End Date Status valACYclovir HCl 1 GM 1 tablet Orally On ce a day for 10 day(s) Active Atorvastatin Calcium 80 MG 1 tablet Oral ly Once a day for 30 day(s) Active Aspir-81 Active Ciclopirox 0.77 % APPLY 1 APPLICATION EXTERNALLY TWICE A DAY FOR 365 DAYS for 30 Active amLODIPine Besylate 10 MG 1 tablet Orall y Once a day for 30 day(s) Active Nasal Allergy PRN Active Lisinopril-hydroCHLOROthiaz sloane [...] Are you an other tobacco user? No Vital Signs Height 5ft 5in in 11/06/2023 Weight 180 lbs 11/06/2023 BMI 29.95 kg/m2 11/06/2023 Encounters Encounter Location Date Provider Diagnosis [facility] [address] [facility] [address] [place] [address] 11/06/2023 Otto Suh Fungal infection of nail B35.1 ; Pain of toe of right foot M79.674 and Pain of toe of left foot M79.675 Assessments Encounter Date Diagnosis (ICD Code) Assessment Notes Treatment Notes Treatment Clinical Notes Section Notes 11/06/2023 Fungal infection of nail (ICD-10 - B35.1) Rx drug management (4),Response to treatment,Unres olved 11/06/2023 Pain of toe of right foot (ICD-10 - M79.674) 11/06/2023 Pain of toe of left foot (ICD-10 - M79.675) Plan Of Treatment Next Appt Details Follow Up: 2-3 Months, Anny n: Progress Notes * SOTERODonovan HOOKERDOB:[birth year] (58 yo M)Acc No.[id number]:11/06/2023 Progress Note Patient:?Donovan Ortiz Provider:?Otto Suh DPM :1965???Age:58 Y???Sex:Male Keven e:11/06/2023 Address:[address] [place], [place] [id number] Pcp:Leilani Veloz Subjective: * Chief Complaints: * ???Fungal Nails * HPI: ???Painful Nails:?Location:?3rd toe , 5th toe , Left foot , Great toe , 3rd toe , 5th toe , Right foot.?Aggrevated by:?shoegear causing difficulty standing/walking.?Treatments:?Coclopirox topical gel , since , , still, relates cont, adherence to recom tx , still, denies any adverse side effects to medication , (i.e. adjacent periungual skin irritation, inflammation, erosion).? * ROS:?General/Constitutional:?Nausea?denies.?Vomiting?denies.?Hunger Thirst?denies.?Loss appetite?denies.?Chills?denies.?Fatigue?denies.?Fever?denies.?Night Sweats?denies.?Unexplained weight loss?denies.?Unexplained weight gain?denies.?HEENTM:?Dentures?denies.?Dizziness?denies.?Glasses/contacts?denies.?Retinopathy?de nies.?Blurred/double vision?denies.?TMJ?denies.?Discharge/drainage?denies.?Implants?denies.?Sore throat?denies.?Dental implants?denies.?Hard of hearing ?denies.?Difficulty chewing/swallowing/speaking?denies.?Nose bleeds?denies.?Sore mouth?denies.?Respiratory:?On Oxygen?denies.?Pneumonia/pleurisy?denies.?Bronchitis?denies.?Emphysema?denies.?C oughing?denies.?Cough blood?denies.?Shortness of breath?denies.?Wheezing?denies.?Cardiovascular:?Pacemaker?denies.?MVP?denies.?WPW?denies.?CHF?denies.?Heart attack?denies.?Septal defect?denies.?Rapid beat?denies.?Chest pain ?denies.?Atrial Fib.?denies.?Murmur/Palpitations?denies.?Gastrointestinal:?Hemorrhoids?denies.?Stomach/Abdominal pain?denies.?Dark blood stool?denies.?Irritable bowel ?denies.?Constipation?denies.?Diarrhea?denies.?Hematology:?Swelling?denies.?Clots?denies.?Varicose Veins?denies.?Bruising?denies.?Bleeding problem?denies.?Genitourinary:?Blood urine?denies.?Frequent/Painfu/urination/bladder control?denies.?Kidney stones?denies.?Infection (UTI)?denies.?Nephropathy?denies.?sex trans dis (STD)?denies.?Prostate?denies.?Musculoskeletal:?Hammertoes?denies.?Bunions?denies.?Back Pain?denies.?Muscle Cramps/ Resting?denies.?Muscle cramps / walking?denies.?Generalized aches and pains?admits.?Weakness?denies.?Integ.:?Jc?denies.?Scars?denies.?Corns/calluses?denies.?Ingrown nails?denies.?Painful nails?admits.?Open Sores?denies.?Rashes?denies.?Neurologic:?Difficulty sleeping?denies.?Brain disorder?denies.?Numbness?denies.?Balance trouble?denies.?Confusion?denies.?Fainting/blackouts?denies.?Tingling?denies.?Tr emors?denies.? * Medical History:? * Surgical History:?lobectomy 07/18/18 * Hospitalization/Major Diagno stic Procedure:?No Hospitalization History. * Family History:?Mother: dece ased, poor circulation, diagnosed with Diabetic - NIDDM, Unspecified heart disease, Other malignant neoplasm of unspecified site.?Father: , diagnosed with Unspecified essential hypertension, Unspecified cerebral artery occlusion with cerebral infarction.? * Social History:?Tobacco Use:?Tobacco Use/Smoking?Are you a:?former smoker ?Tobacco use other than smoking?Are you an other tobacco user??No ???Drugs/Alcohol:?Drugs?Have you used drugs other than those for medical reasons in the past 12 months??No ?Alcohol Screen?Did you have a drink containing alcohol in the past year??Yes ?How often did you have a drink containing alcohol in the past year??4 or more times a week (4 points) ?Points?4 ?Interpretation?Positive ???Miscellaneous:?Caffeine: yes, 1-2 cups per day. ?Exercise: wood work, hiking, walking. ?Marital status: single. 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 * Medications:?TakingNasal All ergy , Notes: PRNLisinopril-hydroCHLOROthiazide 20- 25 MG Tablet 1 tablet Orally Once a dayamLODIPine Besylate 10 MG Tablet 1 tablet Orally Once a dayvalACYclovir HCl 1 GM Tablet 1 tablet Orally Once a dayAtorvastatin Calcium 80 MG Tablet 1 tablet Orally Once a dayAspir-81 Ciclopirox 0.77 % Gel APPLY 1 APPLICATION EXTERNALLY TWICE A DAY FOR 365 DAYS Medication List reviewed and reconciled with the patientTaking Nasal Allergy , Notes: PRNTaking Lisinopril-hydroCHLOROthiazide 20-25 MG Tablet 1 tablet Orally Once a dayTaking amLODIPine Besylate 10 MG Tablet 1 tablet Orally Once a dayTaking valACYclovir HCl 1 GM Tablet 1 tablet Orally Once a dayTaking Atorvastatin Calcium 80 MG Tablet 1 tablet Orally Once a dayTaking Aspir-81 Taking Ciclopirox 0.77 % Gel APPLY 1 APPLICATION EXTERNALLY TWICE A DAY FOR 365 DAYS Medication List reviewed and reconciled with the patient * Allergies:?N.K.D.A.yes[Aller gies Verified] Objective: * Vitals:?Ht: 5ft 5in, Wt:180, BMI:29.95, Shoe size: 9.5, Ht-cm: 165.1 cm, Wt-k.65 kg. * Examination: ???Nails: ?NAILS are:?STILL, Elongated, overgrown, dystrophic, lytic, greater than 3mm thick, discolored and friable with crumbly malodorous subungual debris, with pain on palpation , T2 , T4 , T5 , T7 , T9.? Assessment: * Assessment: 1.?Pain of toe of right foot - M79.674?2.?Fungal infection of nail - B35.1, Acute problem, Uncomplicated (3), Rx drug management (4),Response to treatment,Unresolved?3.?Pain of toe of left foot - M79.675? Plan: * Treatment: * Procedure Codes:? * Preventive Medicine:? ??Counseling:?Discussion:?-13: Office or other outpatient visit for the evaluation and management of an established patient, which required a medically appropriate history and/or examination and LOW level of DECISION MAKING for: 1 STABLE ACUTE UNCOMPLICATED PROBLEM, 2 OR MORE MINOR PROBLEMS, OR 1 STABLE CHRONIC PROBLEM, THAT POSE(S) A LOW RISK FOR MORBIDITY/MORTALITY. The visit on the day of the encounter encompassed interpreting the data and educating the patient as to the nature of their condition, treatment options available according to their individual PMH, meds, allergies, and overall health/living conditions, as well as any potential risks or complications that may occur from a failure to adhere to, and participate in, the recommended course of therapy. The discussion included a complete verbal, and/or written explanation of the examination results, any x-rays taken, the proposed diagnosis, and outline of the treatment plan. A schedule for future care needs was also explained. The patient verbalized an understanding of the instructions at this time and agreed to be an active participant in their treatment. If the patient should think of any questions or concerns after the visit, I have encouraged the patient to call the office.?Fungal Nail Counseling:?Given results to treatment, the patient wishes to continue with the present antifungal treatment plan for their condition, Ciclopirox 0.77 gel as Rxed. Apply as directed to nails twice daily, Nail debridement performed extensively to reduce/remove overall nail length, girth, thickness, subungual debris, and necrotic tissue, by manual and electrical means through the use of a nail nipper and/or dremel, to more viable healthy nail plate or bed tissue. Silver nitrate used for any petechial bleeding as necessary.? * Follow Up:?2-3 Months * Images: * Sign off status: Completed true * Provider:?Otto Suh DPM Date:?2023 Generated for Shay dillard/Melissa/Marissa on:?10/14/2024 09:36 AM EDT History and Physical Notes * HPI (History of Present Illness) Category Sub-Category Detail Notes Category Not es Painful Nails Aggravated by: shoegear causing difficulty standing/walking Location: 3rd toe , 5th toe , Left foot , Great toe , 3rd toe , 5th toe , Right foot Treatments: Coclopirox topical g el , since , , still, relates cont, adherence to recom tx , still, denies any adverse side effects to medication , (i.e. adjacent periungual skin irritation, inflammation, erosion) Examination Category Sub-Category Detail Notes Category Not es Nails NAILS are: STILL, Elongated , overgrown, dystrophic, lytic, greater than 3mm thick, discolored and friable with crumbly malodorous subungual debris, with pain on palpation , T2 , T4 , T5 , T7 , T9
--- OUTSIDE RECORDS SUMMARY | 2024-10-14 09:37 | XMS_ITS | Encounter Summary ---
Author Organization [facility] Address [address] [place] [address] Care Team Providers Care Senior Trial Attorney Name Role Phone Leilani Veloz MD Primary Care Provider [phone] Encounter Details Date Type Department Care Team (Late st Contact Info) Description 03/20/2024 11:41 AM EDT Hospital Encounter TH HISTORIC ENCOUNTERS [...] Progress Notes * Historical, Notes Results - 03/20/2024 11:30 AM EDT 1205- Pt arrived today for stat labs, hydration, and possible chemotherapy. Pt comes in after RT and an MD OV. Pt feels the secretions are still there but they have lessened some. He continues with lama to right neck r/t RT and expressed some mild constipation. I don't feel like I have to go but I haven't gone in about 3 days. Pt still taking stool softeners. Stable assessment otherwise. Pt states I hope my labs are good today. Port accessed without diff. Labs collected/sent stat. Hydration initiated. Pt resting comfortably at this time. Call conklin in reach. 1335- Hydration completed without incident. Pt up to BR x1 without issue. Labs resulted and WNL. Carboplatin java scala developer updated and Dr. Meraz to sign. Pre meds released and given. Pt attempting to rest atthis time but states the morphine is starting to wear off. Is there any way I can get something for the pain. This RN sent halo to MD. Call conklin in reach. 1440- MS IVP orders obtained, entered, and given without issue. Carboplatin initiated. Pt knows to ring conklin if he feels different in any way. Resting comfortably at this time. 1530- Carboplatin completed without incident. No further chemotherapy appts needed as today was final dose of RT and final chemotherapy. Appts made for hydration 3x weekly. Calendar provided. No further questions. Port flushed/deaccessed per protocol. Pt left unit, stable at D/C. documented in this encounter Plan of Treatment Upcoming Encounters Date Type Department Care Team (Late st Contact Info) Description 11/27/2024 1:00 PM EDT Appointment [facility] Infusion Center [address] [place] [phone] 01/02/2025 9:30 AM EDT Office Visit [facility] Hematology Oncology [address] [place] [phone] Zechariah Meraz MD [address] [place] [phone] 01/14/2025 10:30 AM EDT Appointment [facility] Radiation Oncology [address] [place] [phone] No Charles, LOCAL OPERATOR [address] [place] [address] documented as of this encounter Goals Goal Patient Goal Type Associated Problems Recent Progress Patient-Stated? Author Xi Mulligan, CREDIT ADMINISTRATION OFFICER Note: Pt will consume least restrictive PO diet without changes to medical or respiratory status to maintain adequate oral nutrition hydration [facility] Xi Morris, CREDIT ADMINISTRATION OFFICER Note: Pt will participate in development of personalized HEP and perform 3-4xs/wk with min assist for modifications [facility] Xi Morris, CREDIT ADMINISTRATION OFFICER Note: Pt will participate in ongoing education re dysphagia s/p chemoradiation and techniques for symptom management [facility] Xi Morris, CREDIT ADMINISTRATION OFFICER Note: Pt will consume recommended diet textures and utilize swallow strategies given min verbal or visual cues documented as of this encounter Visit Diagnoses Not on filedocumented in this encounter Care Teams Senior Trial Attorney Relationship Specialty Start Date End Date Leilani Veloz MD [address] PCP - General Internal Medicine 06/08/18 documented as of this encounter
--- OUTSIDE RECORDS SUMMARY | 2024-10-14 09:37 | XMS_ITS | Encounter Summary ---
Author Organization [facility] Address [address] [place] [address] Care Team Providers Care Torpedo Man Name Role Phone Leilani Veloz MD Primary Care Provider [phone] Encounter Details Date Type Department Care Team (Latest Contact Info) Description 02/26/2024 9:30 AM EDT Hospital Encounter TH HISTORIC [...] EST Travel History Travel Start Travel End [place] 09/16/2024 09/20/2024 documented as of this encounter [...] Progress Notes * Historical, Notes Results - 02/26/2024 9:30 AM EDT 1045- Pt arrived today for scheduled hydration. Pt comes in after RT appt. He reports continued throat discomfort with rawness and increased thick secretions. Continues using magic mouthwash and baking soda rinses. Pt with poor appetite and utilizing g-tube but starting yesterday, pt experienced a lot of nausea when feeding. Pt took nausea medicine with good affect and states I just didn't realize these side effects would happen so late. I was doing so good and now it's all hitting me. But I have it much better than others. Pt hasn't been able to swallow medications so he purchased a pill supervisor yard and will start crushing his pills at home. Pt feels more fatigued/weak and experiences occasional lightheadedness. He did have diarrhea yesterday. This RN encouraged use of imodium as needed. Encouraged pt to take antinausea about 30 minutes prior to doing a tube feed to see if this helps eliminate nausea during/after feeds. Port accessed without diff by Xi RN from ER. Hydration initiated. Pt resting comfortably and watching TV at this time. Call conklin in reach. 1150- Hydration completed without incident. BP rechecked and improved. Pt reports feeling well. No further questions at this time. Next appts in place and reviewed. Port flushed/deaccessed per protocol. Pt left unit, stable at D/C. documented in this encounter Plan of Treatment Upcoming Encounters Date Type Department Care Team (Late st Contact Info) Description 11/27/2024 1:00 PM EDT Appointment [facility] Infusion Center [address] [place] [phone] 01/02/2025 9:30 AM EDT Office Visit [facility] Hematology Oncology [address] [place] [phone] Zechariah Meraz MD [address] [place] [phone] 01/14/2025 10:30 AM EDT Appointment [facility] Radiation Oncology [address] [place] [phone] No Charles NP [address] [place] [address] documented as of this encounter Goals Goal Patient Goal Type Associated Problems Recent Progress Patient-Stated? Author Xi Mulligan, FLOOR MANAGER Note: Pt will consume least restrictive PO diet without changes to medical or respiratory status to maintain adequate oral nutrition hydration [facility] Xi Morris, FLOOR MANAGER Note: Pt will participate in development of personalized HEP and perform 3-4xs/wk with min assist for modifications [facility] Xi Morris, FLOOR MANAGER Note: Pt will participate in ongoing education re dysphagia s/p chemoradiation and techniques for symptom management [facility] Xi Morris, FLOOR MANAGER Note: Pt will consume recommended diet textures and utilize swallow strategies given min verbal or visual cues documented as of this encounter Procedures Procedure Name Priority Date/Time Associated Diagnosis Comments ..MISCELLANEOUS REFERENCE LAB TEST 02/26/2024 documented in this encounter Results * Miscellaneous reference lab test (02/26/2024) us Provider Onbase LAB BLOOD ORDERABLES Final Re sult documented in this encounter Visit Diagnoses Diagnosis 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
--- OUTSIDE RECORDS SUMMARY | 2024-10-14 09:37 | XMS_ITS | Encounter Summary ---
Author Organization [facility] Address [address] [place] [address] Care Team Providers Care Sulfide Head Operator Name Role Phone Leilani Veloz MD Primary Care Provider [phone] Encounter Details Date Type Department Care Team (Late st Contact Info) Description 02/22/2024 8:58 AM EDT Hospital Encounter TH HISTORIC ENCOUNTERS [...] EST Travel History Travel Start Travel End [place] 09/16/2024 09/20/2024 documented as of this [...] Progress Notes * Historical, Notes Results - 02/22/2024 10:00 AM EDT 0910- Pt arrived today prior to RT for labs to be rechecked. Pt reports having gone home yesterday and peeing like a race horse. Pt struggling eating and drinking d/t discomfort in throat and increased thick secretions. Utilizing g- tube without issue. Pt hydrated through g-tube last night as well. Stable assessment otherwise. Port accessed without diff. Labs collected/sent stat. Port capped. Ptleft unit to RT appt and will return after. 1105- Pt returned to unit after RT. Labs resulted and WNL. Control Officer Manager improved to 1.02. Pre hydration initiated and pre meds given. Urinal provided. Pt up to BR, 100ml dark nikhil urine. No complaints at this time. Call conklin in reach. 1215- Pre hydration completed without incident. Emend initiated. Pt up to BR, 250ml clear yellow urine. Pita at chairside assisting pt with tube feed. Pt also hydrated at chairside through g-tube with about 600ml water. Pt had a full [employer] drink via g-tube as well as 240ml chicken broth PO. Awaiting one more good urine output of about 250-300ml. Pt aware and resting comfortably at this time. Call conklin in reach. 1255- Emend completed without incident. Pt up to BR. 150ml clear yellow urine. Cisplatin released. Pt resting comfortably without complaints. Call cnoklin in reach. 1345- Cisplatin initiated. Pt up to BR with 300ml clear yellow urine. No complaints. Pt watching TVwith call conklin in reach. 1605- Cisplatin completed without incident. Post hydration initiated and completed without incident. Pt up to BR multiple times without issue. Next appts made and provided via calendar. No further questions. Port flushed/deaccessed per protocol. Pt left unit, stable at D/C. documented in this encounter Plan of Treatment Upcoming Encounters Date Type Department Care Team (Late st Contact Info) Description 11/27/2024 1:00 PM EDT Appointment [facility] Infusion Center [address] [place] [phone] 01/02/2025 9:30 AM EDT Office Visit [facility] Hematology Oncology [address] [place] [phone] Zechariah Meraz MD [address] [place] [phone] 01/14/2025 10:30 AM EDT Appointment [facility] Radiation Oncology [address] [phone] No Charles NP [address] [place], [place] [phone] documented as of this encounter Goals Goal Patient Goal Type Associated Problems Recent Progress Patient-Stated? Author [facility] Xi Morris, INSTRUMENTATION DESIGNER Note: Pt will consume least restrictive PO diet without changes to medical or respiratory status to maintain adequate oral nutrition hydration [facility] Xi Morris, INSTRUMENTATION DESIGNER Note: Pt will participate in development of personalized HEP and perform 3-4xs/wk with min assist for modifications [facility] Xi Morris, INSTRUMENTATION DESIGNER Note: Pt will participate in ongoing education re dysphagia s/p chemoradiation and techniques for symptom management [facility] Xi Morris, INSTRUMENTATION DESIGNER Note: Pt will consume recommended diet textures and utilize swallow strategies given min verbal or visual cues documented as of this encounter Visit Diagnoses Not on filedocumented in this encounter Care Teams Sulfide Head Operator Relationship Specialty Start Date End Date Leilani Veloz MD [facility] [address] PCP - General Internal Medicine 06/08/18 documented as of this encounter
--- OUTSIDE RECORDS SUMMARY | 2024-10-14 09:37 | XMS_ITS | Encounter Summary ---
Author Organization [facility] Address [address] [place] [address] Care Team Providers Care Services Tech Name Role Phone Leilani Veloz MD Primary Care Provider [phone] Encounter Details Date Type Department Care Team (Late st Contact Info) Description 03/01/2024 10:18 AM EDT Hospital Encounter TH HISTORIC ENCOUNTERS [...] EST Travel History Travel Start Travel End [place] 09/16/2024 09/20/2024 documented as of this encounter [...] Progress Notes * Historical, Notes Results - 03/01/2024 10:30 AM EDT 1035 Donovan arrives for acute visit today for hydration. He was sent by radiation team after they took his blood pressure and it was noted to be 89/53. Message sent to Dr. Meraz regarding continuing his meds which include amlodipine, lisinopril and HCTZ. Per Dr. Sharp orders Donovan is to hold all 3 medications beginning today. Orders also provided to have hydration 3 TIMES weekly, per Dr. Meraz and Dr. Verdugo. Port accessed after applying ice to chest, as he did not use his EMLA cream today. Port accessed easily with brisk blood return. Resting, and watching television. 1130 resting no distress 1200 hydration complete and BP improved. See vital signs 1205 left unit ambulatory, appointments provided. documented in this encounter Plan of Treatment Upcoming Encounters Date Type Department Care Team (Late st Contact Info) Description 11/27/2024 1:00 PM EDT Appointment [facility] [address] [place] [phone] 01/02/2025 9:30 AM EDT Office Visit [facility] Hematology Oncology [address] [place] [phone] Zechariah Meraz MD [address] [place] [address] 01/14/2025 10:30 AM EDT Appointment [facility] Radiation Oncology [address] [place] [phone] No Charles NP [address] [place] [address] documented as of this encounter Goals Goal Patient Goal Type Associated Problems Recent Progress Patient-Stated? Author LTG General Xi Devlin, MASH TUB COOKER OPERATOR Note: Pt will consume least restrictive PO diet without changes to medical or respiratory status to maintain adequate oral nutrition hydration STG General Xi Devlin, MASH TUB COOKER OPERATOR Note: Pt will participate in development of personalized HEP and perform 3-4xs/wk with min assist for modifications STG Xi Morris, MASH TUB COOKER OPERATOR Note: Pt will participate in ongoing education re dysphagia s/p chemoradiation and techniques for symptom management [facility] Xi Morris, MASH TUB COOKER OPERATOR Note: Pt will consume recommended diet textures and utilize swallow strategies given min verbal or visual cues documented as of this encounter Visit Diagnoses Not on filedocumented in this encounter Care Teams Services Tech Relationship Specialty Start Date End Date Leilani Veloz MD [facility] [address] PCP - General Internal Medicine 06/08/18 documented as of this encounter
--- OUTSIDE RECORDS SUMMARY | 2024-10-14 09:37 | XMS_ITS | Encounter Summary ---
Author Organization [facility] Address [address] [place] [address] Care Team Providers Care Solar Installer Pv Name Role Phone Leilani Veloz MD Primary Care Provider [phone] Encounter Details Date Type Department Care Team (Late st Contact Info) Description 03/15/2024 9:39 AM EDT Hospital Encounter TH HISTORIC [...] Travel History Travel Start Travel End [place] 09/16/2024 09/20/2024 documented as of this encounter [...] Progress Notes * Historical, Notes Results - 03/15/2024 9:30 AM EDT Donovan arrives ambulatory for scheduled hydration. He arrives after radiation treatment today. He reports feeling better than yesterday and that he feels the fluconazole that Dr. Jean prescribed has made a big difference. He reports he was encouraged by Dr. Jean to try to take small easy to swallow foods , and Donovan agreed to try. IV initiated thru infusion port, call conklin in reach. 1005, resting, reading call conklin in reach 1120 one liter of hydration complete, left unit ambulatory,will return Monday for hydration documented in this encounter Plan of Treatment Upcoming Encounters Date Type Department Care Team (Late st Contact Info) Description 11/27/2024 1:[address] [facility] [address] [place] [phone] 01/02/2025 9:30 AM EDT Office Visit [facility] Hematology Oncology [address] [place] [phone] Zechariah Meraz MD [address] [place] [phone] 01/14/2025 10:[address] [facility] Radiation Oncology [address] [place] [phone] No Charles NP [address] [place] [address] documented as of this encounter Goals Goal Patient Goal Type Associated Problems Recent Progress Patient-Stated? Author LTG Xi Morris, INSURANCE MARKETING REP Note: Pt will consume least restrictive PO diet without changes to medical or respiratory status to maintain adequate oral nutrition hydration STG Xi Morris, INSURANCE MARKETING REP Note: Pt will participate in development of personalized HEP and perform 3-4xs/wk with min assist for modifications STG Xi Morris, INSURANCE MARKETING REP Note: Pt will participate in ongoing education re dysphagia s/p chemoradiation and techniques for symptom management STG Xi Morris B, INSURANCE MARKETING REP Note: Pt will consume recommended diet textures and utilize swallow strategies given min verbal or visual cues documented as of this encounter Visit Diagnoses Not on filedocumented in this encounter Care Teams Solar Installer Pv Relationship Specialty Start Date End Date Leilani Veloz MD [facility] [address] PCP - General Internal Medicine 06/08/18 documented as of this encounter
--- OUTSIDE RECORDS SUMMARY | 2024-10-14 09:37 | XMS_ITS | Encounter Summary ---
Author Organization [facility] Address [address] [place] [address] Care Team Providers Care Chemistry Specialist Name Role Phone Leilani Veloz MD Primary Care Provider [phone] Encounter Details Date Type Department Care Team (Latest Contact Info) Description 03/06/2024 9:30 AM EDT Hospital Encounter TH HISTORIC [...] Progress Notes * Historical, Notes Results - 03/06/2024 9:30 AM EDT 1000: PT arrives this morning for STAT labs and hydration prior to initial carbo infusion today. PTreports improvement of productive cough, still has red streaks in sputum. PT has small R hand scratch from a cat about 1cm, no redness noted, encouraged PT to monitor for infection. PT continues to report pain in throat, has MS Rx now which provides some relief, intake only through G tube at this ti me. Otherwise stable assessment. Port accessed without diff, flushed per protocol, +BR noted, labs obtained and sent, fluids and hydration initiated. PT given water and ice to suck on, denies concerns, call conklin in reach. 1100: STAT labs resulted with critical WBC 1.6 and ANC 0.[address] Meraz who sts hold treatment until next week, although still have PT come this Monday for more labs and hydration. Considering low ANC, Dr. Meraz does not believe ANC level will improve enough by Monday for treatment.Hydration completed at this time without concern. 1115: PT made aware we must delay tx today and resume next week. PT aware to still come to infusioncenter Monday for STAT labs and hydration. Port flushed per protocol and deaccessed, dressing applied. PT provided with future appt reminders via calendar and denies further questions or concerns. Left unit, stable at D/C. documented in this encounter Plan of Treatment Upcoming Encounters Date Type Department Care Team (Late st Contact Info) Description 11/27/2024 1:00 PM EDT Appointment [facility] Infusion Center [address] [place] [phone] 01/02/2025 9:30 AM EDT Office Visit [facility] Hematology Oncology [address] [place] [phone] Zechariah Meraz MD [address] [place] [address] 01/14/2025 10:30 AM EDT Appointment [facility] Radiation Oncology [address] [place] [phone] No Charles NP [address] [place] [address] documented as of this encounter Goals Goal Patient Goal Type Associated Problems Recent Progress Patient-Stated? Author Xi Mulligan, CHILD WATCH ATTENDANT Note: Pt will consume least restrictive PO diet without changes to medical or respiratory status to maintain adequate oral nutrition hydration Xi Ireland, CHILD WATCH ATTENDANT Note: Pt will participate in development of personalized HEP and perform 3-4xs/wk with min assist for modifications iX Ireland, CHILD WATCH ATTENDANT Note: Pt will participate in ongoing education re dysphagia s/p chemoradiation and techniques for symptom management Xi Ireland, CHILD WATCH ATTENDANT Note: Pt will consume recommended diet textures and utilize swallow strategies given min verbal or visual cues documented as of this encounter Visit Diagnoses Diagnosis 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
--- OUTSIDE RECORDS SUMMARY | 2024-10-14 09:37 | XMS_ITS | Encounter Summary ---
Author Organization [facility] Address [address] [place] [address] Care Team Providers Care Head Trimmer Name Role Phone Leilani Veloz MD Primary Care Provider [phone] Encounter Details Date Type Department Care Team (Late st Contact Info) Description 02/28/2024 9:20 AM EDT Hospital Encounter TH HISTORIC ENCOUNTERS [...] EST Travel History Travel Start Travel End [place] 09/16/2024 09/20/2024 documented as of this encounter [...] Progress Notes * Historical, Notes Results - 02/28/2024 9:30 AM EDT Pt arrives today for hydration and labs for treatment after Radiation therapy. Pt states he has been taking nausea medication with good effect. Pt reports even drinking water feels like sand paper. Also reports no sense of smell or taste. Supplementing with tube feeds.RIGHT upper chest port accessed per protocol. Positive blood return noted. Labs drawn and sent. NS 1L infused over 1 hr. Pt tolerated well. Stable at discharge. documented in this encounter Plan of Treatment Upcoming Encounters Date Type Department Care Team (Late st Contact Info) Description 11/27/2024 1:00 PM EDT Appointment [facility] Infusion Center [address] [place] [phone] 01/02/2025 9:30 AM EDT Office Visit [facility] Hematology Oncology [address] [place] [phone] Zechariah Meraz MD [address] [place] [address] 01/14/2025 10:30 AM EDT Appointment [facility] Radiation Oncology [address] [place] [phone] No Charles NP [address] [place] [address] documented as of this encounter Goals Goal Patient Goal Type Associated Problems Recent Progress Patient-Stated? Author LTG Xi Morris, ANIMAL GROOMER Note: Pt will consume least restrictive PO diet without changes to medical or respiratory status to maintain adequate oral nutrition hydration STG Xi Morris, ANIMAL GROOMER Note: Pt will participate in development of personalized HEP and perform 3-4xs/wk with min assist for modifications Xi Ireland, ANIMAL GROOMER Note: Pt will participate in ongoing education re dysphagia s/p chemoradiation and techniques for symptom management STG Xi Morris, ANIMAL GROOMER Note: Pt will consume recommended diet textures and utilize swallow strategies given min verbal or visual cues documented as of this encounter Visit Diagnoses Not on filedocumented in this encounter Care Teams Head Trimmer Relationship Specialty Start Date End Date Leilani Veloz MD [facility] PCP - General Internal Medicine 06/08/18 documented as of this encounter
--- OUTSIDE RECORDS SUMMARY | 2024-10-14 09:37 | XMS_ITS | Encounter Summary ---
Author Organization [facility] Address [address] [place] [address] Care Team Providers Care Circulating Process Inspector Name Role Phone Leilani Veloz MD Primary Care Provider [phone] Encounter Details Date Type Department Care Team (Late st Contact Info) Description 03/08/2024 9:25 AM EDT Hospital Encounter TH HISTORIC ENCOUNTERS [...] EST Travel History Travel Start Travel End [place] 09/16/2024 09/20/2024 documented as of this encounter [...] Progress Notes * Historical, Notes Results - 03/08/2024 9:30 AM EDT 0945: PT arrives today for STAT labs and hydration.PT reports some tenderness to his neck r/t RT, skin noted to be red. Otherwise stable assessment. PTs Port accessed without issue, +BR noted, labs obtained and sent, flushed per protocol, fluids and hydration initiated. PT denies concerns, watchingtv, call conklin in reach. 1100: Labs resulted with critical WBC at 1.2 and ANC 0.76. Reported to Dr. Meraz and PT made aware as well. PT reminded signs of infection and to monitor and to call if any sx arise. PT verbalized understanding to this. PT also provided with next weeks appt reminders, denies further concerns. Port flushed per protocol and deaccessed, dressing applied. PT left unit, stable at D/C. documented in this encounter Plan of Treatment Upcoming Encounters Date Type Department Care Team (Late st Contact Info) Description 11/27/2024 1:00 PM EDT Appointment Infusion Center [address] [place] [phone] 01/02/2025 9:30 AM EDT Office Visit Hematology Oncology [address] [place] [phone] Zechariah Meraz MD [address] [place] [address] 01/14/2025 10:30 AM EDT Appointment Radiation Oncology [address] [place] [phone] No Charles NP [address] [place] [address] documented as of this encounter Goals Goal Patient Goal Type Associated Problems Recent Progress Patient-Stated? Author LTG General No Xi Braun, PROGRAM SUPPORT CLERK Note: Pt will consume least restrictive PO diet without changes to medical or respiratory status to maintain adequate oral nutrition hydration STG General No Xi Braun, PROGRAM SUPPORT CLERK Note: Pt will participate in development of personalized HEP and perform 3-4xs/wk with min assist for modifications [facility] General Xi Devlin, PROGRAM SUPPORT CLERK Note: Pt will participate in ongoing education re dysphagia s/p chemoradiation and techniques for symptom management Xi Ireland, PROGRAM SUPPORT CLERK Note: Pt will consume recommended diet textures and utilize swallow strategies given min verbal or visual cues documented as of this encounter Visit Diagnoses Not on filedocumented in this encounter Care Teams Circulating Process Inspector Relationship Specialty Start Date End Date Leilani Veloz MD [address] PCP - General Internal Medicine 06/08/18 documented as of this encounter
--- OUTSIDE RECORDS SUMMARY | 2024-10-14 09:37 | XMS_ITS | Encounter Summary ---
Author Organization [facility] Address [address] [place] [address] Care Team Providers Care Systems Mgr Name Role Phone Leilani Veloz MD Primary Care Provider [phone] Encounter Details Date Type Department Care Team Description 01/17/2024 Social Work [facility] Oncology Services [address] [place] [address] Miguel Guillen, [facility] Social History Tobacco Use Types Packs/Day Years [...] on filedocumented in this encounter Care Teams Systems Mgr Relationship Specialty Start Date End Date Leilani Veloz MD [facility] [address] [phone] PCP - General Internal Medicine 12/25/23 documented as of this encounter
--- OUTSIDE RECORDS SUMMARY | 2024-10-14 09:37 | XMS_ITS | Encounter Summary ---
Author Organization [facility] Address [address] [place] [address] Care Team Providers Care Avionic Technician Name Role Phone Leilani Veloz MD Primary Care Provider [phone] Encounter Details Date Type Department Care Team (Late st Contact Info) Description 03/18/2024 9:56 AM EDT Hospital Encounter TH HISTORIC ENCOUNTERS [...] EST Travel History Travel Start Travel End [place] 09/16/2024 09/20/2024 documented as of this encounter [...] Progress Notes * Historical, Notes Results - 03/18/2024 9:30 AM EDT 1015: PT arrives this morning after RT for hydration. PT reports some ANDREW worse with stairs r/t recent dx of bilateral PE and L leg DVT. PT sts he gets fatigued very quickly now. PT continues to report impaired ability to eat as well, using G tube feedings, branch coordinator at chairside this morning with PT reviewing G tube feedings with new supplies. PT denies any other concerns, otherwise stable assessment. Port accessed without diff, +BR noted, flushed per protocol, hydration initiated. PT reminded he has one more chemo apt on Monday. Plan is to draw STAT labs and hydrate with possible tx depending on labs. PT verbalized understanding to this, denies concerns, call conklin in reach. 1130: Hydration completed without concern. Port flushed per protocol and deaccessed, dressing applied. PT provided with apt reminder for Monday, denies other concerns, left unit with a steady gaitand in no acute distress, stable at D/C. documented in this encounter Plan of Treatment Upcoming Encounters Date Type Department Care Team (Late st Contact Info) Description 11/27/2024 1:00 PM EDT Appointment [facility] Infusion Center [address] [place] [phone] 01/02/2025 9:30 AM EDT Office Visit [facility] Hematology Oncology [address] [place] [phone] Zechariah Meraz MD [address] [place] [address] 01/14/2025 10:30 AM EDT Appointment [facility] Radiation Oncology [address] [place] [phone] No Charles NP [address] [place] [address] documented as of this encounter Goals Goal Patient Goal Type Associated Problems Recent Progress Patient-Stated? Author LTLaura General No Xi Braun, BASKET WEAVER Note: Pt will consume least restrictive PO diet without changes to medical or respiratory status to maintain adequate oral nutrition hydration Xi Ireland, BASKET WEAVER Note: Pt will participate in development of personalized HEP and perform 3-4xs/wk with min assist for modifications Xi Ireland, BASKET WEAVER Note: Pt will participate in ongoing education re dysphagia s/p chemoradiation and techniques for symptom management Xi Ireland, BASKET WEAVER Note: Pt will consume recommended diet textures and utilize swallow strategies given min verbal or visual cues documented as of this encounter Visit Diagnoses Not on filedocumented in this encounter Care Teams Avionic Technician Relationship Specialty Start Date End Date Leilani Veloz MD [address] [place] [address] PCP - General Internal Medicine 06/08/18 documented as of this encounter
--- OUTSIDE RECORDS SUMMARY | 2024-10-14 09:37 | XMS_ITS | Encounter Summary ---
Author Organization [facility] Address [address] [place] [address] Care Team Providers Care Learning And Development Administrator Name Role Phone Leilani Veloz MD Primary Care Provider [phone] Encounter Details Date Type Department Care Team (Late st Contact Info) Description 03/04/2024 10:02 AM EDT Hospital Encounter TH HISTORIC ENCOUNTERS [...] Progress Notes * Historical, Notes Results - 03/04/2024 10:00 AM EDT 1030: PT arrives today for hydration. Reports some worsening throat soreness & difficulty with swallowing. PT sts Everything I swallow feels like sand . PT arrives to unit with small piece of paper from radiation doctor that sts to ask Dr. Meraz for a Rx of MS contin 30mg BID' reported to Dr. Meraz who sts okay. PT reports the pain in his throat causes him to have a productive cough with clear sputum intermittent red streaks in it r/t radiation. PT also reports a poor appetite supplementing all meals with tube feedings. Otherwise stable assessment. Port accessed without diff, +BR noted, fluids initiated. Pt denies concerns, call conklin in reach. 1140: 1L NS fluids completed without concern. Port flushed and deaccessed, dressing applied. PT provided with future appt reminders for new carbo tx Monday and continual hydration and labs. PT verbalized understanding, left unit, stable at d/c. documented in this encounter Plan of Treatment Upcoming Encounters Date Type Department Care Team (Late st Contact Info) Description 11/27/2024 1:00 PM EDT Appointment [facility] Infusion Center [address] [place] [phone] 01/02/2025 9:30 AM EDT Office Visit [facility] Hematology Oncology [address] [place] [phone] Zechariah Meraz MD [address] [place] [phone] 01/14/2025 10:30 AM EDT Appointment [facility] Radiation Oncology [address] [place] [phone] No Charles NP [address] [place], [place] [phone] documented as of this encounter Goals Goal Patient Goal Type Associated Problems Recent Progress Patient-Stated? Author LTG General No Xi Braun, MUSIC SPECIALIST Note: Pt will consume least restrictive PO diet without changes to medical or respiratory status to maintain adequate oral nutrition hydration STG General No Xi Braun, MUSIC SPECIALIST Note: Pt will participate in development of personalized HEP and perform 3-4xs/wk with min assist for modifications Xi Ireland, MUSIC SPECIALIST Note: Pt will participate in ongoing education re dysphagia s/p chemoradiation and techniques for symptom management Xi Ireland, MUSIC SPECIALIST Note: Pt will consume recommended diet textures and utilize swallow strategies given min verbal or visual cues documented as of this encounter Visit Diagnoses Not on filedocumented in this encounter Care Teams Learning And Development Administrator Relationship Specialty Start Date End Date Leilani Veloz MD [address] PCP - General Internal Medicine 06/08/18 documented as of this encounter
--- OUTSIDE RECORDS SUMMARY | 2024-10-14 09:37 | XMS_ITS | Clinical Summary ---
Author Organization [facility] Address [address] [place] [address] Phone Care Team Providers Care Shallot Cleaner Name Role Phone Leilani Veloz MD Primary Care Provider [phone] Allergies No known active allergies Medications atorvastatin (LIPITOR) 80 mg tablet Take 40 mg by mouth every other day. Every other day Active valACYclovir (VALTREX) 1 gram tablet Take 1 tablet (1,000 mg total) by mouth. Active sildenafiL (VIAGRA) 100 mg tablet Take 1 tablet (100 mg total) by mouth 2 (two) times a week. 06/23/20 24 Active apixaban (ELIQUIS) 5 mg tablet Take 1 tablet (5 mg total) by mouth 2 (two) times a day. 90 tablet 1 08/12/19 25 Active morphine (MSIR) 15 mg tabletIndicati ons:Malignant neoplasm of base of tongue (CMS/HCC) Take 1 tablet (15 mg total) by mouth every 4 (four) hours if needed for severe pain. Partial fill allowed Max Daily Amount: 90 mg 120 tablet 08/05/19 25 025 Discontinued lidocaine (XYLOCAINE) 2 % solution 15 mL swished in the mouth and spit out no more frequently than every 3 hours. Max 8 doses per 24-hour period). 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 Cancer Staging:Clinical stage from 11/22/2023:Stage II(cT2, cN2, cM0, p16+) - Signed by Chris Benitez MD on 05/21/2024 Pulmonary embolism Encounters Date Type Department Care Team Description 10/09/2024 9:18 AM EDT - 10/09/2024 11:59 PM EDT Hospital Encounter Infusion Center [address] [place] [phone] Zechariah Meraz MD Malignant neoplasm of base of tongue (CMS/HCC) (Primary Dx) Discharge Disposition: Home or Self Care 10/02/2024 9:45 AM EDT Office Visit Hematology Oncology [address] [place] [phone] Zechariah Meraz MD Malignant neoplasm of base of tongue (CMS/HCC) (Primary Dx) 08/27/2024 9:54 AM EST - 08/27/2024 11:59 PM EST Hospital Encounter [address] [phone] Zechariah Meraz MD Malignant neoplasm of base of tongue (CMS/HCC) (Primary Dx) Discharge Disposition: Home or Self Care 08/22/2024 Telephone Radiation Oncology [address] [place] [phone] Angelica Cui, SERGEI Med Refill 08/07/2024 9:15 AM EST Office Visit Hematology Oncology [address] [place] [phone] Zechariah Meraz MD Malignant neoplasm of base of tongue (CMS/HCC) (Primary Dx) 07/25/2024 Telephone [facility] Speech Therapy [address] [phone] Xi Braun, GERIATRIC ASSISTANT Advice Only (Spoke with pt re dysphagia and need for f/u GERIATRIC ASSISTANT session. Pt is managing recommended PO diet with use of swallow strategies and does not need f/u at this time. He had to cx lymph eval due to clinic being out of network. Pt will f/u with MD if changes occur.) 07/17/2024 10:47 AM EST - 07/17/2024 11:59 PM EST Hospital Encounter Radiation Oncology [address] [place] [address], [place] [phone] No Charles NP Malignant neoplasm of base of tongue (CMS/HCC) (Primary Dx) Discharge Disposition: Home or Self Care 07/16/2024 9:55 AM EST - 07/16/2024 11:59 PM EST Hospital Encounter Infusion Center [address] [phone] Zechariah Meraz MD Malignant neoplasm of base of tongue (CMS/HCC) [C01] (Primary Dx) Discharge Disposition: Home or Self Care from Last 3 Months Immunizations Name Administration Dates Next Due Influenza Quadravalent, MDCK , 0.5ml, preservative free (Flucelvax) 6mo and older 05/11/2022,03/25/2020 Influenza Quadrivalent, 0.5m l, preservative free (Fluarix; FluLaval; Fluzone) ages 6mo and older (Afluria) 3yo and older 04/10/2023,05/19/2021 Influenza trivalent, 0.5mL, preservative free (Fluarix; FluLaval; Fluzone) ages 6mo and older (Afluria) 3 years and older 05/02/2024,07/06/2021 Influenza trivalent, with pr eservative (Fluzone; Afluria) 6mo and older 04/18/2014,04/08/2011,04/20/2010,03/17 Moderna SARS-CoV-2 COVID-19, mRNA, LNP-S, preservative free 07/06/2021,12/16/2020 Pneumococcal conjugate 13 va lent (Prevnar 13, PCV13) 2mo and older 06/30/2020 Pneumococcal conjugate 20 va lent (Prevnar 20, PCV 20) 2mo and older 07/26/2023 Pneumococcal polysaccharide 23 valent (Pneumovax 23) 2yo and older 12/05/2018 Zoster recombinant (Shingrix ) 19yo and older 12/16/2020,06/30/2020 Surgical History Surgery Date Site/Laterality Comments LUNG LOBECTOMY 2018 PROCEDURE:LUNG LOBECTOMY;COMMENT:Right middle COLONOSCOPY PROCEDURE:COLONOSCOPY CARPAL TUNNEL RELEASE PROCEDURE:CARPAL TUNNEL RELEASE BIOPSY / EXCISION / DISSECTI ON AXILLARY NODE Cervical Node Medical History Medical History Date Comments Hypertension DX:Hypertension Stroke (CMS/HCC) DX:Stroke (HCC) Pulmonary embolism DVT (deep venous thrombosis) (CMS/HCC) Family History Medical History Relation Name Comments Breast cancer Mother Lung cancer Paternal Grandmother Smoker Relation Name Status Comments Mother Paternal Grandmother Social History Tobacco Use Types Packs/Day Years Used Date Smoking Tobacco: Former Cigarettes Q uit: 07/10/2016 Smokeless Tobacco: Never Tobacco Cessation:Counseling Given: Not [...] Start Travel End [place] 09/16/2024 09/20/2024 Obstetrics History Last Filed Vital Signs Vital Sign Reading Time Taken Comments Blood Pressure 129/80 10/02/2024 10:08 AM EDT Pulse 74 10/02/2024 10:08 AM EDT Temperature 36.6 ??C (97.8 ??F) 10/02/2024 10:08 AM E DT Respiratory Rate 18 07/17/2024 11:01 AM EST Oxygen Saturation 100% 10/02/2024 10:08 AM EDT Inhaled Oxygen Concentration - - Weight 74.8 kg (165 lb) 10/02/2024 10:08 AM EDT Height 165.1 cm (5' 5 ) 07/17/2024 11:01 AM EST Body Mass Index 27.46 07/17/2024 11:01 AM EST Plan of Treatment Upcoming Encounters Date Type Department Care Team (Late st Contact Info) Description 11/27/2024 1:[address] [facility] [address] [phone] 01/02/2025 9:30 AM EDT Office Visit Hematology Oncology [address] [place] [phone] Zechariah Meraz MD [address] [place] [phone] 01/14/2025 10:30 AM EDT Appointment Radiation Oncology [address] [phone] No Charles, JANES [address] [place] [address] Health Maintenance Due Date Last Done Comments DTaP,Tdap,and Td Vaccines (1 - Tdap) 1983 Colorectal Cancer Screening: Colonoscopy 06/11/2022 Depression Screening 06/11/2022 HIV Screening 06/11/2022 Hepatitis C Screening 06/11/2022 Lung Cancer Screening (Low Dose CT) 06/11/2022 Social Influencers of Health Screening 06/11/2022 RSV Immunization Adult Patients (1 - Risk 60-74 years 1-dose series) 2024 Hypertension/CHF/CAD Annual BMP Blood Test 06/19/2025 06/19/2024 Cholesterol Screening (Lipid Panel) 06/19/2029 06/19/2024 Zoster Vaccines Completed 12/16/2020, 06/30/2020 Pneumococcal Vaccine: 50+ Years Completed 07/26/2023, 06/30/2020, 12/05/2018, Additional history exists Pneumococcal Vaccine: Pediatrics (0 to 5 Years) and At-Risk Patients (6 to 64 Years) Completed 07/26/2023, 06/30/2020, 12/05/2018, Additional history exists COVID-19 Vaccine Completed 05/02/2024, 09/2023, 05/11/2022, Additional history exists Influenza Vaccine Completed 05/02/2024, , 05/11/2022, Additional history exists HIB Vaccines Aged Out No longer eligi ble based on patient's age to complete this topic HPV Vaccines Aged Out No longer eligi ble based on patient's age to complete this topic Hepatitis A Vaccines Aged Out No long er eligible based on patient's age to complete this topic Hepatitis B Vaccines Aged Out No long er eligible based on patient's age to complete this topic IPV Vaccines Aged Out No longer eligi ble based on patient's age to complete this topic MMR Vaccines Aged Out No longer eligi ble based on patient's age to complete this topic Meningococcal ACWY Vaccine Aged Out N o longer eligible based on patient's age to complete this topic Meningococcal B Vacine Aged Out No lo nger eligible based on patient's age to complete this topic RSV Immunization Patients Under 20 months Aged Out No longer eligible based on patient's age to complete this topic Varicella Vaccines Aged Out No longer eligible based on patient's age to complete this topic Goals Goal Patient Goal Type Associated Problems Recent Progress Patient-Stated? Author LTG Xi Morris, GERIATRIC ASSISTANT Note: Pt will consume least restrictive PO diet without changes to medical or respiratory status to maintain adequate oral nutrition hydration Xi Ireland, GERIATRIC ASSISTANT Note: Pt will participate in development of personalized HEP and perform 3-4xs/wk with min assist for modifications Xi Ireland, GERIATRIC ASSISTANT Note: Pt will participate in ongoing education re dysphagia s/p chemoradiation and techniques for symptom management [facility] Xi Morris, GERIATRIC ASSISTANT Note: Pt will consume recommended diet textures and utilize swallow strategies given min verbal or visual cues Procedures Procedure Name Priority Date/Time Associated Diagnosis Comments COMPREHENSIVE METABOLIC PANEL Routine 06/19/2024 9:54 AM EST 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) Hypertension, unspecified type Pulmonary thrombosis (CMS/HCC) LIPID PANEL WITH REFLEX TO DIRECT LDL Routine 06/19/2024 9:54 AM EST 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) Hypertension, unspecified type Pulmonary thrombosis (CMS/HCC) from Last 3 Months or Most Recently Relevant to Health Maintenance Results * Lipid panel with reflex to direct LDL (06/19/2024 9:54 AM EST) Cholesterol 98 0 - 200 mg/dL LAB CHEMISTRY METHOD 06/19/2024 3:24 PM EST [facility] Triglycerides 48 0 - 150 mg/dL LAB CHEMISTRY METHOD 06/19/2024 3:24 PM [facility] HDL 52 >=40 mg/dL LAB CHEMISTRY METHOD 06/19/2024 3:24 PM [facility] LDL Calculated 36 0 - 100 mg/dL LAB CHEMISTRY METHOD 06/19/2024 3:24 PM [facility] VLDL Cholesterol Juan Daniel 9.6 mg/dL LAB CHEMISTRY METHOD 06/19/2024 3:24 PM [facility] Non HDL Chol. (LDL+VLDL) 46 <145 mg/dL LAB CHEMISTRY METHOD 06/19/2024 3:24 PM [facility] Chol/HDL Ratio 1.9 0.0 - 4.4 LAB CHEMISTRY METHOD 06/19/2024 3:24 PM [facility] Blood Venous blood specimen / Unknown Venipuncture / Unknown 06/19/2024 9:54 AM EST 06/19/2024 9:54 AM EST us Leilani Veloz MD LAB BLOOD ORDERABLES Final Re sult [facility] [address] [place] [address], [place] [phone] * (ABNORMAL) Comprehensive metabolic panel (06/19/2024 9:54 AM EST) Sodium 145 133 - 145 mmol/L LAB CHEMISTRY METHOD 06/19/2024 3:09 PM [facility] Potassium 4.3 3.5 - 5.5 mmol/L LAB CHEMISTRY METHOD 06/19/2024 3:09 PM [facility] Chloride 111(H) 96 - 110 mmol/L LAB CHEMISTRY METHOD 06/19/2024 3:09 PM [facility] CO2 29 21 - 32 mmol/L LAB CHEMISTRY METHOD 06/19/2024 3:09 PM [facility] Anion Gap 5 3 - 11 LAB CHEMISTRY METHOD 06/19/2024 3:09 PM [facility] Glucose 89 70 - 100 mg/dL LAB CHEMISTRY METHOD 06/19/2024 3:09 PM [facility] BUN 10 5 - 25 mg/dL LAB CHEMISTRY METHOD 06/19/2024 3:09 PM [facility] Creatinine 0.68(L) 0.70 - 1.30 mg/dL LAB CHEMISTRY METHOD 06/19/2024 3:09 PM [facility] eGFR 107 >=60 mL/min/1. 73m2 LAB CHEMISTRY METHOD 06/19/2024 3:09 PM [facility] Comment:Calculation based on the??Chronic Kidney Disease Epidemiology Collaboration (CKD-EPI) equation refit??without adjustment for race. BUN/Creatinine Ratio 14.7 LAB CHEMISTRY METHOD 06/19/2024 3:09 PM [facility] Calcium 9.1 8.5 - 10.5 mg/dL LAB CHEMISTRY METHOD 06/19/2024 3:09 PM [facility] AST (SGOT) 24 10 - 42 unit/L LAB CHEMISTRY METHOD 06/19/2024 3:09 PM [facility] ALT (SGPT) 34 10 - 60 unit/L LAB CHEMISTRY METHOD 06/19/2024 3:09 PM [facility] Alkaline Phosphatase 59 42 - 121 unit/L LAB CHEMISTRY METHOD 06/19/2024 3:09 PM [facility] Total Protein 5.7(L) 6.0 - 8.0 g/dL LAB CHEMISTRY METHOD 06/19/2024 3:09 PM [facility] Albumin 3.3 3.2 - 5.0 g/dL LAB CHEMISTRY METHOD 06/19/2024 3:09 PM [facility] Total Bilirubin 0.5 0.0 - 1.4 mg/dL LAB CHEMISTRY METHOD 06/19/2024 3:09 PM [facility] Blood Venous blood specimen / Unknown Venipuncture / Unknown 06/19/2024 9:54 AM EST 06/19/2024 9:54 AM EST Leilani Veloz MD LAB BLOOD ORDERABLES Final Re sult [facility] ([facility]) [facility] [address] [place] [address], from Last 3 Months or Most Recently Relevant to Health Maintenance Insurance [facility] ([facility]) Care Teams Shallot Cleaner Relationship Specialty Start Date End Date Leilani Veloz MD [address] PCP - General Internal Medicine 06/08/18
[2024-10-14 11:22] LABS: Alanine Aminotransferase 16 U/L (0-40); Albumin Level 4.2 g/dL (3.5-5.0); Alkaline Phosphatase 72 U/L (39-117); Anion Gap 10 (12-20); Aspartate Amino Transferase 31 U/L (5-37); Bilirubin Total 0.8 mg/dL (0.0-1.0); Blood Urea Nitrogen 11 mg/dL (9-16); Calcium 9.3 mg/dL (8.4-10.2); Carbon Dioxide 28 mmol/L (22-29); Chloride 108 mmol/L (96-108); Cholesterol 172 mg/dL (<200); Estimated Glomerular Filt Rate > 60; Glucose Random 93 mg/dL (60-115); HDL Cholesterol 72 mg/dL (>40); LDL Cholesterol Calculated 88 mg/dL (<100); Potassium 4.4 mmol/L (3.3-5.1); Prostate Specific Antigen Scr 2.35 ng/mL (<0.05-4.0); Sodium 142 mmol/L (135-145); Total Protein 7.1 g/dL (6.5-8.0); Triglycerides 62 mg/dL (<150)
== END 2024-10-14 08:50 | disposition home or self-care (01) ==
LOC: HO.10HDL 08:49
PROVIDERS: Visit Provider Internal Medicine
DX: Z00.01 Encounter for general adult medical examination with abnormal findings (principal); Z12.5 Encounter for screening for malignant neoplasm of prostate; Z13.6 Encounter for screening for cardiovascular disorders; D61.818 Other pancytopenia; I26.99 Other pulmonary embolism without acute cor pulmonale; N40.0 Benign prostatic hyperplasia without lower urinary tract symptoms; R60.0 Localized edema
CPT/HCPCS: 36415; 80053; 80061; 84153

== ENCOUNTER 2024-11-12 08:55 | Outpatient (AMB) | payer BC, SELFPAY ==
--- NOTE | 2024-11-12 09:08 | A.OFFVIS_ITS ---
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 States pain started about 6 months ago. No injury he can recall. States his thumb is locking at his IP. Pain is worse at night especially at night he has pain in his CMC joint. States putting his hands in warm water helps. Hx of CTS in his left hand. Hx of right CTR with Dr Garner 05/24/21. EMG done in 2020 IMPRESSION: Carpal tunnel syndrome. Nerve conduction EMG study: Moderately severe carpal tunnel syndrome on the right, early carpal tunnel syndrome on the left. 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 He complains of painful locking & popping of his thumb. He says this has been present for ~6 months now, and has been limiting his ROM. His thumb is now locked in extension and has bee for the last few weeks. He has known left carpal tunnel syndrome, with numbness. Symptoms intermittent, but daily, worse at night. He complains of numbness today in clinic. He has a Hx of a right carpal tunnel release, DOS: 05/24/21. He says this went well and his right hand is doing good. He says he is currently out of work as he underwent chemotherapy for cancer several months ago. [facility] Medical History AVM (arteriovenous malformation) Elevated cholesterol CVA (cerebral vascular accident) Carpal tunnel syndrome High blood pressure Surgical History Status post excisional biopsy (11/10/23) H/O colonoscopy History of carpal tunnel release S/P partial lobectomy of lung Family History Mother Breast CA Paternal Grandmother Lung cancer Social History Household Members Other:: son Are you a primary home health care provider to a significant other at home: No Do you presently have visiting nurse or other home services: No Comment: counts correct Patient Tobacco Use Status: Former Tobacco user Tobacco use type: Cigarette Years Smoked: 40 service: No Current occupational status: employed 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 Review of Systems Const All systems reviewed & are unremarkable except as noted in HPI and below Physical Exam Vital Signs: BMI result Body Mass Index 28.0 Const General: cooperative, healthy appearing and no acute distress Orientation/consciousness: patient oriented x3 HEENT Head: Yes normocephalic and Yes atraumatic Eyes EOM: EOMs intact bilaterally Resp Effort & Inspection: normal respiratory effort and able to speak in complete sentences Cardio Jugular venous distension: no JVD Skin General skin exam: turgor normal Rashes: no rashes Neuro General: patient oriented x3 Extrem Other: Evaluation of Left Upper Extremity: The patient is alert, oriented, and in no acute distress Neuro: Dense numbness in the median nerve distribution. Normal sensation in the ulnar nerve distribution No thenar or intrinsic wasting Good APB muscle belly firing and good finger cross Vascular: Cap refill brisk ROM: He can make a fist and extend all his digits, except for his thumb which is locked in extension Tender over the thumb a1 bakari Skin: No lacerations or abrasions. General: No Ecchymosis. No Erythema or evidence of infection. Radiographs: 3 views of the left hand were taken and viewed by me today in clinic. They show no fractures or dislocations. There is some early basal joint arthritis with early osteophyte formation Psych Appearance: grossly normal Affect: normal affect Attitude: cooperative Assessment & Plan Assessment & Plan (1) Trigger thumb, left thumb: Code(s): M65.312 - Trigger thumb, left thumb Category: Medical (2) Carpal tunnel syndrome of left wrist: Code(s): G56.02 - Carpal tunnel syndrome, left upper limb Category: Medical Plan Assessment & Plan: 1. Left trigger thumb, locked in extension 2. Left carpal tunnel syndrome With dense numbness I educated him about these conditions I discussed operative and non-operative treatment options The patient would like to proceed with surgery The risks and benefits of operative treatment were discussed with the patient and the patient wishes to proceed with surgery. These risks include, but are not limited to risk of damage to blood vessels, nerves, tendons, infection, recurrence, incomplete relief of preoperative symptoms, persistent pain, possible need for further surgery and the risks associated with regional blocks and anesthesia. The plan is to take the patient to the operating room sometime in the next few weeks for the following procedures: 1. Left trigger thumb release, under local 2. Left carpal tunnel release, under local All of the preoperative paperwork including the consent was reviewed today. All the patient's questions were answered. The patient understands that they will be contacted by our medical genetics director soon to schedule this procedure He denies Diabetes, blood thinners, asthma, heart, lung, kidney issues 3. Right carpal tunnel syndrome, S/P release DOS: 05/24/21 Doing well, no complaints Scribed for Xi Garner MD by Israel Bishop, medical liaison, on 11/12/24 at 9:30 AM, EST. Orders: Orders XR hand LT min 3V Today M79.642 - Pain in left hand Coding Level of Care Code Est Pt Level 4 (12575) Diagnoses Trigger thumb, left thumb M65.312 Carpal tunnel syndrome of left wrist G56.02
[2024-11-12 09:13] VITALS: BMI 28.0
--- OUTSIDE RECORDS SUMMARY | 2024-11-12 09:29 | XMS_ITS | Encounter Summary ---
Author Organization [facility] Address [address] [place] [address] Care Team Providers Care Staff Physical Therapy Assistant Name Role Phone Leilani Veloz MD Primary Care Provider [phone] Encounter Details Date Type Department Care Team [...] Orientation Straight 08/27/2024 9: 53 AM EST documented as of this encounter Last Filed [...] EDT Appointment [facility] [address] [place] [phone] 01/02/2025 9:30 AM EDT Office Visit [facility] Hematology Oncology [address] [place] [phone] Zechariah Meraz MD [address] [place] [phone] 01/14/2025 10:30 AM EDT Appointment [facility] Radiation Oncology [address] [place] [phone] No Charles NP [address] [place] [address] documented as of this encounter Goals Goal Patient Goal Type Associated Problems Recent Progress Patient-Stated? Author LTG iX Morris, HOT DIE PRESS OPERATOR Note: Pt will consume least restrictive PO diet without changes to medical or respiratory status to maintain adequate oral nutrition hydration STG Xi Morris, HOT DIE PRESS OPERATOR Note: Pt will participate in development of personalized HEP and perform 3-4xs/wk with min assist for modifications STG Xi Morris, HOT DIE PRESS OPERATOR Note: Pt will participate in ongoing education re dysphagia s/p chemoradiation and techniques for symptom management STG Vick Morrisison B, HOT DIE PRESS OPERATOR Note: Pt will consume recommended diet textures and utilize swallow strategies given min verbal or visual cues documented as of this encounter Visit Diagnoses Not on filedocumented in this encounter Care Teams Staff Physical Therapy Assistant Relationship Specialty Start Date End Date Leilani Veloz MD [facility] [address] PCP - General Internal Medicine 06/08/18 documented as of this encounter
--- OUTSIDE RECORDS SUMMARY | 2024-11-12 09:29 | XMS_ITS | Encounter Summary ---
Author Organization [facility] Address [address] [place] [address] Care Team Providers Care Seat Covers Trimmer Name Role Phone Leilani Veloz MD Primary Care Provider [phone] Encounter Details Date Type Department Care Team [...] given an icecream, denies other concerns, call conklin in reach. 1450: Hydration completed without concern. Port flushed per protocol and deaccessed, dressing applied. PT provided with future apt reminders, denies other concerns, left unit, stable at D/C. documented in this encounter Plan of Treatment Upcoming Encounters Date Type Department Care Team (Late st Contact Info) Description 11/27/2024 1:00 PM EDT Appointment [facility] [address] [place] [phone] 01/02/2025 9:30 AM EDT Office Visit [facility] Hematology Oncology [address] [place] [phone] Zechariah Meraz MD [address] [place] [phone] 01/14/2025 10:30 AM EDT Appointment [facility] Radiation Oncology [address] [place] [phone] No Charles NP [address] [place], [place] [phone] documented as of this encounter Goals Goal Patient Goal Type Associated Problems Recent Progress Patient-Stated? Author LTG General No Xi Braun, PACKAGE DELIVERY DRIVER Note: Pt will consume least restrictive PO diet without changes to medical or respiratory status to maintain adequate oral nutrition hydration STG General No Vick Braunison B, PACKAGE DELIVERY DRIVER Note: Pt will participate in development of personalized HEP and perform 3-4xs/wk with min assist for modifications Xi Ireland, PACKAGE DELIVERY DRIVER Note: Pt will participate in ongoing education re dysphagia s/p chemoradiation and techniques for symptom management [facility] Xi Morris, PACKAGE DELIVERY DRIVER Note: Pt will consume recommended diet textures and utilize swallow strategies given min verbal or visual cues documented as of this encounter Visit Diagnoses Not on filedocumented in this encounter Care Teams Seat Covers Trimmer Relationship Specialty Start Date End Date Leilani Veloz MD [address] [place] [address] PCP - General Internal Medicine 06/08/18 documented as of this encounter
--- OUTSIDE RECORDS SUMMARY | 2024-11-12 09:29 | XMS_ITS | Encounter Summary ---
Author Organization [facility] Address [address] [place] [address] Care Team Providers Care Tire Rebuilder Name Role Phone Leilani Veloz MD Primary Care Provider [phone] Encounter Details Date Type Department Care Team [...] EDT Appointment [facility] In[facility] [address] [place] [phone] 01/02/2025 9:30 AM EDT Office Visit [facility] Hematology Oncology [address] [place] [phone] Zechariah Meraz MD [address] [place] [phone] 01/14/2025 10:30 AM EDT Appointment [facility] Radiation Oncology [address] [place] [phone] No Charles NP [address] [place] [address] documented as of this encounter Goals Goal Patient Goal Type Associated Problems Recent Progress Patient-Stated? Author LTG Xi Morris, FINANCIAL SALES REPRESENTATIVE Note: Pt will consume least restrictive PO diet without changes to medical or respiratory status to maintain adequate oral nutrition hydration STG Xi Morris, FINANCIAL SALES REPRESENTATIVE Note: Pt will participate in development of personalized HEP and perform 3-4xs/wk with min assist for modifications Xi Ireland, FINANCIAL SALES REPRESENTATIVE Note: Pt will participate in ongoing education re dysphagia s/p chemoradiation and techniques for symptom management BINH Braun Xi B, FINANCIAL SALES REPRESENTATIVE Note: Pt will consume recommended diet textures and utilize swallow strategies given min verbal or visual cues documented as of this encounter Visit Diagnoses Not on filedocumented in this encounter Care Teams Tire Rebuilder Relationship Specialty Start Date End Date Leilani Veloz MD [facility] [address] PCP - General Internal Medicine 06/08/18 documented as of this encounter
--- OUTSIDE RECORDS SUMMARY | 2024-11-12 09:29 | XMS_ITS | Encounter Summary ---
Author Organization [facility] Address [address] [place] [address] Care Team Providers Care Mechanical Cad Drafter Name Role Phone Leilani Veloz MD Primary Care Provider [phone] Encounter Details Date Type Department Care Team [...] PM EDT Appointment [facility] In[facility] [address] [place] [phone] 01/02/2025 9:30 AM EDT Office Visit [facility] Hematology Oncology [address] [place] [phone] Zechariah Meraz MD [address] [place] [phone] 01/14/2025 10:30 AM EDT Appointment [facility] Radiation Oncology [address] [place] [phone] No Charles NP 271 [place] [address] documented as of this encounter Goals Goal Patient Goal Type Associated Problems Recent Progress Patient-Stated? Author LTG General No Xi Braun, DOCTOR OF NAPRAPATHIC MEDICINE Note: Pt will consume least restrictive PO diet without changes to medical or respiratory status to maintain adequate oral nutrition hydration STG General No Xi Braun, DOCTOR OF NAPRAPATHIC MEDICINE Note: Pt will participate in development of personalized HEP and perform 3-4xs/wk with min assist for modifications BINH General Xi Devlin, DOCTOR OF NAPRAPATHIC MEDICINE Note: Pt will participate in ongoing education re dysphagia s/p chemoradiation and techniques for symptom management Xi Ireland, DOCTOR OF NAPRAPATHIC MEDICINE Note: Pt will consume recommended diet textures and utilize swallow strategies given min verbal or visual cues documented as of this encounter Visit Diagnoses Not on filedocumented in this encounter Care Teams Mechanical Cad Drafter Relationship Specialty Start Date End Date Leilani Veloz MD [address] PCP - General Internal Medicine 06/08/18 documented as of this encounter
--- OUTSIDE RECORDS SUMMARY | 2024-11-12 09:29 | XMS_ITS | Encounter Summary ---
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 He underwent a fiberoptic laryngoscopy on 11/30/2023 [...] a course of Diflucan x 7 days. [place] through the radiation course, he no longer [...] starting to take soups orally. He delivers [facility], 3-4 bottles per day via G-tube or orally. He is followed by our Requirements Engineer. He reports mild diarrhea since starting the Marcela FAST FELT feeding. We discontinued weekly cisplatin following four weekly infusions due to renal failure. We planned to start weekly carboplatin. A platelet count on 02/28/2024 was 83,000. We delayed planned weekly carboplatin by 1 week. An ANC on 03/06/2024 was 1.0. A platelet count was 71,000. We delayed weekly carboplatin by another week. He had 2 syncopal episodes on 03/09/2024 who presented to the [facility] ER 03/10/2024. 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 He is . He has 2 [...] stage II T2N2 base of tongue cancer, [id number]. We will plan for chemoradiation with weekly [...] a course of Diflucan x 7 days. [place] through the radiation course, he no longer [...] to take soups orally. He delivers Marcela FAST FELT, 3-4 bottles per day via G-tube or orally. He is followed by our Requirements Engineer. He reports mild diarrhea since starting the [...] episodes on 03/09/2024 who presented to the [facility] ER 03/10/2024. A chest CTA on [...] Description 11/27/2024 1:00 PM EDT Appointment [facility] Infusion Center [address] [phone] 01/02/2025 9:30 AM EDT Office Visit [facility] Hematology Oncology [address] [place] [phone] Zechariah Meraz MD [address] [place] [phone] 01/14/2025 10:30 AM EDT Appointment [facility] Radiation Oncology [address] [place] [phone] No Charles NP [address] [place], [place] [phone] documented as of this encounter Goals Goal Patient Goal Type Associated Problems Recent Progress Patient-Stated? Author LTXi Ramirez, COMPLIANCE MANAGER Note: Pt will consume least restrictive PO diet without changes to medical or respiratory status to maintain adequate oral nutrition hydration [facility] Xi Morris, COMPLIANCE MANAGER Note: Pt will participate in development of personalized HEP and perform 3-4xs/wk with min assist for modifications Xi Ireland, COMPLIANCE MANAGER Note: Pt will participate in ongoing education re dysphagia s/p chemoradiation and techniques for symptom management [facility] Xi Morris, COMPLIANCE MANAGER Note: Pt will consume recommended diet [...] on filedocumented in this encounter Care Teams Contact Lens Fitter Relationship Specialty Start Date End Date Leilani Veloz MD 1221 [facility] [address] [place] PCP - General Internal Medicine 06/08/18 documented as of this encounter
--- OUTSIDE RECORDS SUMMARY | 2024-11-12 09:29 | XMS_ITS | Encounter Summary ---
Author Organization [facility] Address [address] [place] [address] Care Team Providers Care Senior Sous Chef Name Role Phone Leilani Veloz MD Primary Care Provider [phone] Encounter Details Date Type Department Care Team [...] Info) Description 11/27/2024 1:00 PM EDT Appointment [facility] Infusion Center [address] [place] [phone] 01/02/2025 9:30 AM EDT Office Visit [facility] Hematology Oncology [address] [place] [phone] Zechariah Meraz MD 271 [place] [address] 01/14/2025 10:30 AM EDT Appointment [facility] Radiation Oncology [address] [phone] No Charles NP [address] [place] [address] documented as of this encounter Goals Goal Patient Goal Type Associated Problems Recent Progress Patient-Stated? Author LTXi Ramirez, BUFFET RUNNER Note: Pt will consume least restrictive PO diet without changes to medical or respiratory status to maintain adequate oral nutrition hydration STG Xi Morris, BUFFET RUNNER Note: Pt will participate in development of personalized HEP and perform 3-4xs/wk with min assist for modifications Xi Ireland, BUFFET RUNNER Note: Pt will participate in ongoing education re dysphagia s/p chemoradiation and techniques for symptom management STG Xi Morris, BUFFET RUNNER Note: Pt will consume recommended diet textures and utilize swallow strategies given min verbal or visual cues documented as of this encounter Visit Diagnoses Not on filedocumented in this encounter Care Teams Senior Sous Chef Relationship Specialty Start Date End Date Leilani Veloz MD 1221 [facility] 216 [place], [place] PCP - General Internal Medicine 06/08/18 documented as of this encounter
--- OUTSIDE RECORDS SUMMARY | 2024-11-12 09:30 | XMS_ITS | Encounter Summary ---
Author Organization [facility] Address [address] [place] [address] Care Team Providers Care Waistband Setter Name Role Phone Leilani Veloz MD Primary Care Provider [phone] Encounter Details Date Type Department Care Team [...] Appointment [facility] Infusion Center [address] [place] [phone] 01/02/2025 9:30 AM EDT Office Visit [facility] Hematology Oncology [address] [place] [phone] Zechariah Meraz MD 271 [place] [address] 01/14/2025 10:30 AM EDT Appointment [facility] Radiation Oncology [address] [place] [phone] No Charles NP 271 [place] [address] documented as of this encounter Goals Goal Patient Goal Type Associated Problems Recent Progress Patient-Stated? Author LTG General No Xi Braun, MANAGER ENDOSCOPY Note: Pt will consume least restrictive PO diet without changes to medical or respiratory status to maintain adequate oral nutrition hydration STG General No Xi Braun, MANAGER ENDOSCOPY Note: Pt will participate in development of personalized HEP and perform 3-4xs/wk with min assist for modifications STG Xi Morris, MANAGER ENDOSCOPY Note: Pt will participate in ongoing education re dysphagia s/p chemoradiation and techniques for symptom management Xi Ireland, MANAGER ENDOSCOPY Note: Pt will consume recommended diet textures and utilize swallow strategies given min verbal or visual cues documented as of this encounter Visit Diagnoses Not on filedocumented in this encounter Care Teams Waistband Setter Relationship Specialty Start Date End Date Leilani Veloz MD [facility] [address] PCP - General Internal Medicine 06/08/18 documented as of this encounter
--- OUTSIDE RECORDS SUMMARY | 2024-11-12 09:30 | XMS_ITS | Encounter Summary ---
Author Organization [facility] Address [address] [place] [address] Care Team Providers Care Online Facilitator Name Role Phone Leilani Veloz MD Primary Care Provider [phone] Encounter Details Date Type Department Care Team [...] Info) Description 11/27/2024 1:00 PM EDT Appointment [facility] Infusion [facility] [address] [place] [phone] 01/02/2025 9:30 AM EDT Office Visit [facility] Hematology Oncology [address] [place] [phone] Zechariah Meraz MD 271 [place] [phone] 01/14/2025 10:30 AM EDT Appointment [facility] Radiation Oncology [address] [place] [phone] No Charles NP 271 [place] [address] documented as of this encounter Goals Goal Patient Goal Type Associated Problems Recent Progress Patient-Stated? Author LTG General Xi Devlin, FUNERAL ARRANGEMENT DIRECTOR Note: Pt will consume least restrictive PO diet without changes to medical or respiratory status to maintain adequate oral nutrition hydration STG General Xi Devlin, FUNERAL ARRANGEMENT DIRECTOR Note: Pt will participate in development of personalized HEP and perform 3-4xs/wk with min assist for modifications STG Xi Morris, FUNERAL ARRANGEMENT DIRECTOR Note: Pt will participate in ongoing education re dysphagia s/p chemoradiation and techniques for symptom management [facility] Xi Morris, FUNERAL ARRANGEMENT DIRECTOR Note: Pt will consume recommended diet textures and utilize swallow strategies given min verbal or visual cues documented as of this encounter Visit Diagnoses Not on filedocumented in this encounter Care Teams Online Facilitator Relationship Specialty Start Date End Date Leilani Veloz MD [facility] [address] PCP - General Internal Medicine 06/08/18 documented as of this encounter
--- OUTSIDE RECORDS SUMMARY | 2024-11-12 09:30 | XMS_ITS | Encounter Summary ---
Author Organization [facility] Address [address] [place] [address] Care Team Providers Care Publicity Expert Name Role Phone Leilani Veloz MD Primary Care Provider [phone] Encounter Details Date Type Department Care Team [...] Description 11/27/2024 1:[address] [facility] Infusion Center [address] [place] [phone] 01/02/2025 9:30 AM EDT Office Visit [facility] Hematology Oncology [address] [place] [phone] Zechariah Meraz MD 271 [place] [address] 01/14/2025 10:[address] [facility] Radiation Oncology [address] [place] [phone] No Charles NP 271 [place] [address] documented as of this encounter Goals Goal Patient Goal Type Associated Problems Recent Progress Patient-Stated? Author LTG Xi Morris, CAR SEAT COVERER Note: Pt will consume least restrictive PO diet without changes to medical or respiratory status to maintain adequate oral nutrition hydration STG Xi Morris, CAR SEAT COVERER Note: Pt will participate in development of personalized HEP and perform 3-4xs/wk with min assist for modifications STG Xi Morris, CAR SEAT COVERER Note: Pt will participate in ongoing education re dysphagia s/p chemoradiation and techniques for symptom management STG Xi Morris, CAR SEAT COVERER Note: Pt will consume recommended diet textures and utilize swallow strategies given min verbal or visual cues documented as of this encounter Visit Diagnoses Not on filedocumented in this encounter Care Teams Publicity Expert Relationship Specialty Start Date End Date Leilani Veloz MD 1221 [facility] 216 [place], [place] PCP - General Internal Medicine 06/08/18 documented as of this encounter
--- OUTSIDE RECORDS SUMMARY | 2024-11-12 09:30 | XMS_ITS | Encounter Summary ---
Author Organization [facility] Address [address] [place] [address] Care Team Providers Care Material Planner Name Role Phone Leilani Veloz MD Primary Care Provider [phone] Encounter Details Date Type Department Care Team [...] Appointment [facility] Infusion Center [address] [phone] 01/02/2025 9:30 AM EDT Office Visit [facility] Hematology Oncology [address] [place] [phone] Zechariah Meraz MD 271 [place] [phone] 01/14/2025 10:30 AM EDT Appointment [facility] Radiation Oncology [address] [place] [phone] No Charles NP 271 [place], [place] [phone] documented as of this encounter Goals Goal Patient Goal Type Associated Problems Recent Progress Patient-Stated? Author Xi Mulligan, SOLAR PANEL INSTALLATION SUPERVISOR Note: Pt will consume least restrictive PO diet without changes to medical or respiratory status to maintain adequate oral nutrition hydration STG Xi Morris, SOLAR PANEL INSTALLATION SUPERVISOR Note: Pt will participate in development of personalized HEP and perform 3-4xs/wk with min assist for modifications STG Xi Morris, SOLAR PANEL INSTALLATION SUPERVISOR Note: Pt will participate in ongoing education re dysphagia s/p chemoradiation and techniques for symptom management STG Xi Morris, SOLAR PANEL INSTALLATION SUPERVISOR Note: Pt will consume recommended diet textures and utilize swallow strategies given min verbal or visual cues documented as of this encounter Visit Diagnoses Not on filedocumented in this encounter Care Teams Material Planner Relationship Specialty Start Date End Date Leilani Veloz MD 1221 [facility] 216 [place], [place] PCP - General Internal Medicine 06/08/18 documented as of this encounter
--- OUTSIDE RECORDS SUMMARY | 2024-11-12 09:30 | XMS_ITS ---
Author Organization [facility] Address [address] [place] [address] Care Team Providers Care Color Room Attendant Name Role Phone Leilani Veloz MD Primary Care Provider [phone] Active Problems Problem Noted Date Diagnosed Date Malignant neoplasm of base of tongue 12/28/[address] 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 (HCC) Treatment Medications sodium chloride (NS) 0.9 % Past Plans ONCOLOGY TREATMENT Plan Name Start Date Discontinue Date Treatment Medications Discontinue Reason Plan Provider Cycles [facility] OP WEEKLY CARBOPLATIN (HEAD & NECK) 024 04/12/2024 albuterol (PROVENTIL)CARBOplatin (PARAPLATIN) chemo infusion (by AUC)dexamethasone (DECADRON) DOSE > 10 mg IVPBdexamethasone sod phosphate PF (DECADRON)diphenhydrAMIN E (BENADRYL)EPINEPHrinefam otidine (PF) (PEPCID)hydrocortisone (SOLU-CORTEF) IVondansetron (ZOFRAN-ODT)palonosetron (ALOXI)prochlorperazine (COMPAZINE)Saline Flush 0.9 %sodium chloride (NS) 0.9 %sodium chloride 0.9% bolus (NS) Therapy Complete Zechariah Meraz MD 1 of 1 cycle started [facility] OP CISPLATIN WEEKLY 024 03/05/2024 albuterol (PROVENTIL)CISplatin (PLATINOL) chemo infusion No mannitolcustom IV infusion builderdexamethasone (DECADRON)diphenhydrAMIN E (BENADRYL)EPINEPHrinefam otidine (PF) (PEPCID)fosaprepitant IV Piggybackhydrocortisone (SOLU-CORTEF) IVpalonosetron (ALOXI)Saline Flush 0.9 %sodium chloride (NS) 0.9 %sodium chloride 0.9% bolus (NS) Not Tolerated Zechariah Meraz MD 1 of 3 cycles started [facility] [facility] [place] CISPLAT[place] 100MG/M2 (FOR USE WITH [...] treatments are documented for this patient in [facility]. Treatments may have been administered in another system.
--- OUTSIDE RECORDS SUMMARY | 2024-11-12 09:30 | XMS_ITS | Encounter Summary ---
Author Organization [facility] Address [address] [place] [address] Care Team Providers Care Loan Funder Name Role Phone Leilani Veloz MD Primary Care Provider [phone] Encounter Details Date Type Department Care Team [...] Appointment [facility] Infusion Center [address] [place] [phone] 01/02/2025 9:30 AM EDT Office Visit [facility] Hematology Oncology [address] [place] [phone] Zechariah Meraz MD [address] [place] [address] 01/14/2025 10:30 AM EDT Appointment [facility] Radiation Oncology [address] [place] [phone] No Charles NP 271 [place] [address] documented as of this encounter Goals Goal Patient Goal Type Associated Problems Recent Progress Patient-Stated? Author LTG General No Xi Braun, COMMERCIAL ATTACHE Note: Pt will consume least restrictive PO diet without changes to medical or respiratory status to maintain adequate oral nutrition hydration STG General No Xi Braun, COMMERCIAL ATTACHE Note: Pt will participate in development of personalized HEP and perform 3-4xs/wk with min assist for modifications STG General No Xi Braun, COMMERCIAL ATTACHE Note: Pt will participate in ongoing education re dysphagia s/p chemoradiation and techniques for symptom management STG General No Xi Braun, COMMERCIAL ATTACHE Note: Pt will consume recommended diet textures and utilize swallow strategies given min verbal or visual cues documented as of this encounter Visit Diagnoses Not on filedocumented in this encounter Care Teams Loan Funder Relationship Specialty Start Date End Date Leilani Veloz MD [address] [place] [address] PCP - General Internal Medicine 06/08/18 documented as of this encounter
--- OUTSIDE RECORDS SUMMARY | 2024-11-12 09:30 | XMS_ITS | Encounter Summary ---
Author Organization [facility] Address [address] [place] [address] Care Team Providers Care Pasta Maker Name Role Phone Leilani Veloz MD Primary Care Provider [phone] Encounter Details Date Type Department Care Team [...] Info) Description 11/27/2024 1:00 PM EDT Appointment [facility] Infusion Center [address] [place] [address] 2[address] [place] [phone] 01/02/2025 9:30 AM EDT Office Visit [facility] Hematology Oncology [address] [place] [address] Zechariah Meraz MD [address] [place] [address] 01/14/2025 10:30 AM EDT Appointment [facility] Radiation Oncology [address] [phone] No Charles NP 271 [place] [address] documented as of this encounter Goals Goal Patient Goal Type Associated Problems Recent Progress Patient-Stated? Author Xi Mulligan, MARKETING DEVELOPMENT SPECIALIST Note: Pt will consume least restrictive PO diet without changes to medical or respiratory status to maintain adequate oral nutrition hydration [facility] Xi Morris, MARKETING DEVELOPMENT SPECIALIST Note: Pt will participate in development of personalized HEP and perform 3-4xs/wk with min assist for modifications [facility] Xi Morris, MARKETING DEVELOPMENT SPECIALIST Note: Pt will participate in ongoing education re dysphagia s/p chemoradiation and techniques for symptom management [facility] Xi Morris, MARKETING DEVELOPMENT SPECIALIST Note: Pt will consume recommended diet textures and utilize swallow strategies given min verbal or visual cues documented as of this encounter Visit Diagnoses Not on filedocumented in this encounter Care Teams Pasta Maker Relationship Specialty Start Date End Date Leilani Veloz MD [address] [place], [place] PCP - General Internal Medicine 06/08/18 documented as of this encounter
--- OUTSIDE RECORDS SUMMARY | 2024-11-12 09:30 | XMS_ITS | Encounter Summary ---
Author Organization [facility] Address [address] [place] [address] Care Team Providers Care Policy Analyst Name Role Phone Leilani Veloz MD Primary Care Provider [phone] Encounter Details Date Type Department Care Team [...] and once labs result, will review with cofferdam construction supervisor provider as Dr. Meraz is off.Pt made [...] Description 11/27/2024 1:00 PM EDT Appointment [facility] Infusion Center [address] [place] [phone] 01/02/2025 9:30 AM EDT Office Visit [facility] Hematology Oncology [address] [place] [phone] Zechariah Meraz MD 271 [place] [address] 01/14/2025 10:30 AM EDT Appointment [facility] Radiation Oncology [address] [address] No Charles NP 271 [place], [place] [phone] documented as of this encounter Goals Goal Patient Goal Type Associated Problems Recent Progress Patient-Stated? Author LTG Xi Morris, RIDE OPERATOR Note: Pt will consume least restrictive PO diet without changes to medical or respiratory status to maintain adequate oral nutrition hydration STG Xi Morris, RIDE OPERATOR Note: Pt will participate in development of personalized HEP and perform 3-4xs/wk with min assist for modifications STG Xi Morris, RIDE OPERATOR Note: Pt will participate in ongoing education re dysphagia s/p chemoradiation and techniques for symptom management STG Xi Morris, RIDE OPERATOR Note: Pt will consume recommended diet textures and utilize swallow strategies given min verbal or visual cues documented as of this encounter Visit Diagnoses Not on filedocumented in this encounter Care Teams Policy Analyst Relationship Specialty Start Date End Date Leilani Veloz MD [address] PCP - General Internal Medicine 06/08/18 documented as of this encounter
--- OUTSIDE RECORDS SUMMARY | 2024-11-12 09:30 | XMS_ITS ---
Author Organization [facility] Address [address] [facility] [place] [address] Care Team Providers Care Head Cd Reactor Operator Name Role Phone Chaddsemaj Leilani Primary Care Provider Unavailab Otto Castelan Unavailable [phone] REASON FOR VISIT cx 02/04 appt Encounters Encounter Location Date Provider Diagnosis [address] [phone] 01/29/2024 Otto Suh Plan Of Treatment No Information Progress Notes * LUTHERDonovan COURTNEYDOB:[birth year] (58 yo M)Acc No.[id number]:01/29/2024 Patient:?Donovan Ortiz :1965???Age:58 Y???Sex:Male Address:[address] [place] [address] * true * Date:? Generated for Shay dillard/Melissa/eTransmitting on:?11/12/2024 09:30 AM EDT
--- OUTSIDE RECORDS SUMMARY | 2024-11-12 09:30 | XMS_ITS | Encounter Summary ---
Author Organization [facility] Address [address] [place] [address] Care Team Providers Care Route Sales Trainee Name Role Phone Leilani Veloz MD Primary Care Provider [phone] Encounter Details Date Type Department Care Team Description 02/08/2024 Social Work [facility] Oncology Services 271 [place] [address] Miguel Guillen, [facility] Social History Tobacco Use Types Packs/Day Years [...] on filedocumented in this encounter Care Teams Route Sales Trainee Relationship Specialty Start Date End Date Leilani Veloz MD [facility] [address] [address] PCP - General Internal Medicine 12/25/23 documented as of this encounter
--- OUTSIDE RECORDS SUMMARY | 2024-11-12 09:30 | XMS_ITS | Patient Health Record ---
Author Organization [facility] Carlito Padgett Address [address] [place] [address] Care Team Providers Care Chair Car Driver Name Role Phone Chaddsemaj Leilani Primary Care Provider Unavailab Otto Castelan Unavailable [phone] Allergies No Known Allergies Reason For Referral [...] Problem Status W/U Status Risk Notes Problem [id number] Fungal infection of nail (B35.1) Active confirmed Rx drug management (4),Response to treatment,Unr esolved Encounters Encounter Location Date Provider Diagnosis [facility] [address] [facility] [place] [address] 01/29/2024 Otto Suh Plan Of Treatment No Information Insurance Providers Payer Name Payer Address Payer Phone Subscriber Number Group Number Insured Name Patient Relationship to Insured Coverage Start Date Coverage End Date Eric [facility] [address] [place] [address] [id number] Donovan Ortiz Self - patient is the insured Medical (General) History Medical History History ICD Code Broken bones CAD (Cholesterol) High blood pressure Stroke Chicken pox Surgical History Surgery Date(Month/Year) lobectomy 07/18/18
--- OUTSIDE RECORDS SUMMARY | 2024-11-12 09:30 | XMS_ITS | Encounter Summary ---
Author Organization [facility] Address [address] [place] [address] Care Team Providers Care Tape Cutting Machine Operator Name Role Phone Leilani Veloz MD Primary Care Provider [phone] Encounter Details Date Type Department Care Team [...] to the [place] on Monday after MD TOVAR and feels well enough not to come [...] [facility] Infusion Center [address] [place] [phone] 01/02/2025 9:30 AM EDT Office Visit [facility] Hematology Oncology [address] [place] [phone] Zechariah Meraz MD 271 [place] [address] 01/14/2025 10:30 AM EDT Appointment [facility] Radiation Oncology [address] [place] [phone] No Charles NP 271 [place] [address] documented as of this encounter Goals Goal Patient Goal Type Associated Problems Recent Progress Patient-Stated? Author LTG General No Xi Braun, WIRE BRUSH OPERATOR Note: Pt will consume least restrictive PO diet without changes to medical or respiratory status to maintain adequate oral nutrition hydration STG General No Xi Braun, WIRE BRUSH OPERATOR Note: Pt will participate in development of personalized HEP and perform 3-4xs/wk with min assist for modifications STG General No Xi Braun, WIRE BRUSH OPERATOR Note: Pt will participate in ongoing education re dysphagia s/p chemoradiation and techniques for symptom management STG General Xi Devlin, WIRE BRUSH OPERATOR Note: Pt will consume recommended diet textures and utilize swallow strategies given min verbal or visual cues documented as of this encounter Visit Diagnoses Not on filedocumented in this encounter Care Teams Tape Cutting Machine Operator Relationship Specialty Start Date End Date Leilani Veloz MD [facility] PCP - General Internal Medicine 06/08/18 documented as of this encounter
--- OUTSIDE RECORDS SUMMARY | 2024-11-12 09:30 | XMS_ITS | Encounter Summary ---
Author Organization [facility] Address [address] [place] [address] Care Team Providers Care Servicing Rep Name Role Phone Leilani Veloz MD Primary Care Provider [phone] Encounter Details Date Type Department Care Team [...] prefers morphine script be sent to the [facility] in the [facility]. This RN notified Dr. Meraz. No further questions. Next appts in place and reviewed. Port flushed/deaccessed per protocol. Pt left unit, stable at D/C. documented in this encounter Plan of Treatment Upcoming Encounters Date Type Department Care Team (Late st Contact Info) Description 11/27/2024 1:00 PM EDT Appointment [facility] Infusion Center [address] [place] [phone] 01/02/2025 9:30 AM EDT Office Visit [facility] Hematology Oncology [address] [place] [phone] Zechariah Meraz MD 271 [place] [address] 01/14/2025 10:30 AM EDT Appointment [facility] Radiation Oncology [address] [place] [phone] No Charles NP 271 [place] [address] documented as of this encounter Goals Goal Patient Goal Type Associated Problems Recent Progress Patient-Stated? Author LTLaura General No Xi Braun, CONSUMER AFFAIRS DIRECTOR Note: Pt will consume least restrictive PO diet without changes to medical or respiratory status to maintain adequate oral nutrition hydration STG General No Aparna, Xi B, CONSUMER AFFAIRS DIRECTOR Note: Pt will participate in development of personalized HEP and perform 3-4xs/wk with min assist for modifications Xi Ireland, CONSUMER AFFAIRS DIRECTOR Note: Pt will participate in ongoing education re dysphagia s/p chemoradiation and techniques for symptom management Xi Ireland, CONSUMER AFFAIRS DIRECTOR Note: Pt will consume recommended diet textures and utilize swallow strategies given min verbal or visual cues documented as of this encounter Visit Diagnoses Not on filedocumented in this encounter Care Teams Servicing Rep Relationship Specialty Start Date End Date Leilani Veloz MD [address] [facility] [address] [place], [place] PCP - General Internal Medicine 06/08/18 documented as of this encounter
--- OUTSIDE RECORDS SUMMARY | 2024-11-12 09:30 | XMS_ITS | Encounter Summary ---
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 Cisplatin initiated. PT sitting with Pita Ski Molder and Chani speech pathologist. PT up to [...] Info) Description 11/27/2024 1:00 PM EDT Appointment [facility] Infusion Center [address] [phone] 01/02/2025 9:30 AM EDT Office Visit [facility] Hematology Oncology 271 [place] [phone] Zechariah Meraz MD 271 [place] [phone] 01/14/2025 10:30 AM EDT Appointment [facility] Radiation Oncology [address] [phone] No Charles NP 271 [place] [address] documented as of this encounter Goals Goal Patient Goal Type Associated Problems Recent Progress Patient-Stated? Author LTG Xi Morris, MONITOR WORKER Note: Pt will consume least restrictive PO diet without changes to medical or respiratory status to maintain adequate oral nutrition hydration RUST Xi Morris, MONITOR WORKER Note: Pt will participate in development of personalized HEP and perform 3-4xs/wk with min assist for modifications Xi Ireland, MONITOR WORKER Note: Pt will participate in ongoing education re dysphagia s/p chemoradiation and techniques for symptom management RUST Xi Morris, MONITOR WORKER Note: Pt will consume recommended diet textures and utilize swallow strategies given min verbal or visual cues documented as of this encounter Visit Diagnoses Diagnosis 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
--- OUTSIDE RECORDS SUMMARY | 2024-11-12 09:30 | XMS_ITS | Clinical Summary ---
Author Organization [facility] Address [address] [place] [address] Care Team Providers Care Instructor Creeler Name Role Phone Leilani Veloz MD Primary Care Provider [phone] Allergies No known active allergies Medications Medication [...] 60 tablet 0 03/05/2024 Active nystatin (MYCOSTATIN) 724398 UNIT/ML suspension Take 5 mL (500,000 Units [...] age to complete this topic Care Teams Instructor Creeler Relationship Specialty Start Date End Date Leilani Veloz MD [address] [place] [phone] PCP - General Internal Medicine 12/25/23
--- OUTSIDE RECORDS SUMMARY | 2024-11-12 09:30 | XMS_ITS ---
Author Organization [facility] Address [address] [place] [address] Phone Care Team Providers Care Levers Lace Machine Operator Name Role Phone Leilani Veloz MD Primary Care Provider [phone] Active Problems Problem Noted Date Diagnosed Date Malignant neoplasm of base o f tongue ([facility] V24, [facility] V28) 12/28/2023 Cancer Staging:Clinical stage from 11/22/2023:Stage II(cT2, cN2, cM0, p16+) - Signed by Chris Benitez MD on 05/21/2024 Pulmonary embolism ([facility] V24, [facility] V28) Current Oncology Plans CENTRAL VENOUS ACCESS ( CVA ) MAINTENANCE / BLOOD DRAW / CATHETER CLEARANCE / DRESSING CHANGE / FLUSH* Plan Start Date:10/09/2024 Plan Provider:Zechariah Meraz MD Linked Problems Malignant neoplasm of base o f tongue ([facility] V24, [facility] V28) Treatment Medications No medications scheduled. Past Plans No past plan information found. Radiation Treatments * No radiation treatments are documented for this patient in [facility]. Treatments may have been administered in another system.
--- OUTSIDE RECORDS SUMMARY | 2024-11-12 09:31 | XMS_ITS | Encounter Summary ---
Author Organization [facility] Address [address] [place] [address] Care Team Providers Care Aircraft Quality Control Inspector Name Role Phone Leilani Veloz MD Primary Care Provider [phone] Encounter Details Date Type Department Care Team [...] eat as well, using G tube feedings, non garment sewing machine operator at chairside this morning with PT reviewing [...] Info) Description 11/27/2024 1:00 PM EDT Appointment [facility] Infusion Center [address] [phone] 01/02/2025 9:30 AM EDT Office Visit [facility] Hematology Oncology [address] [place] [phone] Zechariah Meraz MD 271 [place] [address] 01/14/2025 10:30 AM EDT Appointment [facility] Radiation Oncology [address] [place] [phone] No Charles NP 271 [place] [address] documented as of this encounter Goals Goal Patient Goal Type Associated Problems Recent Progress Patient-Stated? Author LTLaura General No Xi Braun, FINISHER BRUSH Note: Pt will consume least restrictive PO diet without changes to medical or respiratory status to maintain adequate oral nutrition hydration STG General No Xi Braun, FINISHER BRUSH Note: Pt will participate in development of personalized HEP and perform 3-4xs/wk with min assist for modifications Xi Ireland, FINISHER BRUSH Note: Pt will participate in ongoing education re dysphagia s/p chemoradiation and techniques for symptom management Xi Ireland, FINISHER BRUSH Note: Pt will consume recommended diet textures and utilize swallow strategies given min verbal or visual cues documented as of this encounter Visit Diagnoses Not on filedocumented in this encounter Care Teams Aircraft Quality Control Inspector Relationship Specialty Start Date End Date Leilani Veloz MD [facility] [address] PCP - General Internal Medicine 06/08/18 documented as of this encounter
--- OUTSIDE RECORDS SUMMARY | 2024-11-12 09:31 | XMS_ITS ---
Author [facility] Address [address] [address] Care Team Providers Care Sign Letterer Name Role Phone Chaddsemaj Leilani Primary Care Provider Unavailab Otto Castelan Unavailable [phone] Allergies No Known Allergies REASON FOR VISIT [...] 11/06/2023 Encounters Encounter Location Date Provider Diagnosis [facility] [place] [address] [facility] [address] [place] [address] 11/06/2023 Otto Suh Fungal infection of nail [...] * SOTERODonovan HOOKERDOB:[birth year] (58 yo M)Acc No.[id number]:11/06/2023 Progress Note Patient:?Donovan Ortiz Provider:?Otto Suh DPM :1965???Age:58 Y???Sex:Male Keven e:11/06/2023 Address:[address] [place], [place] [phone] Pcp:Leilani Veloz Subjective: * Chief Complaints: * [...] hiking, walking. ?Marital status: single. 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 * Medications:?TakingNasal All ergy , Notes: PRNLisinopril-hydroCHLOROthiazide [...] Suh DPM Date:?2023 Generated for Shay dillard/Melissa/Marissa on:?11/12/2024 09:31 AM EDT History and Physical Notes * [...]
--- OUTSIDE RECORDS SUMMARY | 2024-11-12 09:31 | XMS_ITS ---
Author Organization [facility] Address [address] [facility] [place] [address] Care Team Providers Care Malt House Kiln Operator Name Role Phone Leilani Veloz Primary Care Provider Unavailab Otto Castelan Unavailable [phone] Encounters Encounter Location Date Provider Diagnosis [facility] [address] [address] 02/05/2024 Otto Suh Plan Of Treatment No Information Progress Notes * Donovan VACADOB:[birth year] (59 yo M)Acc No.[id number]:02/05/2024 Progress Note Patient:Donovan COYLE Provider:?Otto Suh DPM :1965???Age:58 Y???Sex:Male Keven e:02/05/2024 Address:[address] [place], [place] [phone] Pcp:Leilani Veloz Subjective: * Chief Complaints: * [...] Provider:?Otto Suh DPM Date:?2023 Generated for Shay dillard/Melissa/Navdeepitting on:?11/12/2024 09:30 AM EDT
--- OUTSIDE RECORDS SUMMARY | 2024-11-12 09:31 | XMS_ITS | Encounter Summary ---
Author Organization [facility] Address [address] [place] [address] Care Team Providers Care Watershed Program Manager Name Role Phone Leilani Veloz MD Primary Care Provider [phone] Encounter Details Date Type Department Care Team Description 01/17/2024 Social Work [facility] Oncology Services 271 [place] [address] Miguel Guillen, [facility] Social History Tobacco Use Types Packs/Day Years [...] on filedocumented in this encounter Care Teams Watershed Program Manager Relationship Specialty Start Date End Date Leilani Veloz MD [facility] [address] [address] PCP - General Internal Medicine 12/25/23 documented as of this encounter
--- OUTSIDE RECORDS SUMMARY | 2024-11-12 09:31 | XMS_ITS | Encounter Summary ---
Author Organization [facility] Address [address] [place] [address] Care Team Providers Care Merchandise Planner Name Role Phone Leilani Veloz MD Primary Care Provider [phone] Encounter Details Date Type Department Care Team [...] Info) Description 11/27/2024 1:00 PM EDT Appointment [facility] Infusion Center [address] [place] [phone] 01/02/2025 9:30 AM EDT Office Visit [facility] Hematology Oncology [address] [place] [phone] Zechariah Meraz MD 271 [place] [phone] 01/14/2025 10:30 AM EDT Appointment [facility] Radiation Oncology [address] [place] [phone] No Charles NP 271 [place] [address] documented as of this encounter Goals Goal Patient Goal Type Associated Problems Recent Progress Patient-Stated? Author LTG Xi Morris, STEREOTYPE FINISHER Note: Pt will consume least restrictive PO diet without changes to medical or respiratory status to maintain adequate oral nutrition hydration STG Xi Morris, STEREOTYPE FINISHER Note: Pt will participate in development of personalized HEP and perform 3-4xs/wk with min assist for modifications Xi Ireland, STEREOTYPE FINISHER Note: Pt will participate in ongoing education re dysphagia s/p chemoradiation and techniques for symptom management STG Xi Morris, STEREOTYPE FINISHER Note: Pt will consume recommended diet textures and utilize swallow strategies given min verbal or visual cues documented as of this encounter Visit Diagnoses Not on filedocumented in this encounter Care Teams Merchandise Planner Relationship Specialty Start Date End Date Leilani Veloz MD [address] PCP - General Internal Medicine 06/08/18 documented as of this encounter
--- OUTSIDE RECORDS SUMMARY | 2024-11-12 09:31 | XMS_ITS | Encounter Summary ---
Author Organization [facility] Address [address] [place] [address] Care Team Providers Care Electrical Linesworker Name Role Phone Leilani Veloz MD Primary Care Provider [phone] Encounter Details Date Type Department Care Team [...] Info) Description 11/27/2024 1:00 PM EDT Appointment [facility] Infusion Center [address] [place] [phone] 01/02/2025 9:30 AM EDT Office Visit [facility] Hematology Oncology [address] [place] [phone] Zechariah Meraz MD 271 [place] [phone] 01/14/2025 10:30 AM EDT Appointment [facility] Radiation Oncology [address] [place] [phone] No Charles NP 271 [place] [address] documented as of this encounter Goals Goal Patient Goal Type Associated Problems Recent Progress Patient-Stated? Author LTXi Ramirez, DESTINATION IMAGINATION COORDINATOR Note: Pt will consume least restrictive PO diet without changes to medical or respiratory status to maintain adequate oral nutrition hydration STG Xi Morris, DESTINATION IMAGINATION COORDINATOR Note: Pt will participate in development of personalized HEP and perform 3-4xs/wk with min assist for modifications Xi Ireland, DESTINATION IMAGINATION COORDINATOR Note: Pt will participate in ongoing education re dysphagia s/p chemoradiation and techniques for symptom management STG Xi Morris, DESTINATION IMAGINATION COORDINATOR Note: Pt will consume recommended diet textures and utilize swallow strategies given min verbal or visual cues documented as of this encounter Visit Diagnoses Not on filedocumented in this encounter Care Teams Electrical Linesworker Relationship Specialty Start Date End Date Leilani Veloz MD [facility] [address] [place], [place] PCP - General Internal Medicine 06/08/18 documented as of this encounter
--- OUTSIDE RECORDS SUMMARY | 2024-11-12 09:31 | XMS_ITS | Encounter Summary ---
Author Organization [facility] Address [address] [place] [address] Care Team Providers Care Supervisor Telephone Clerks Name Role Phone Leilani Veloz MD Primary Care Provider [phone] Encounter Details Date Type Department Care Team [...] Pt resting comfortably at this time. Call akron in reach. 1335- Hydration completed without incident. Pt up to BR x1 without issue. Labs resulted and WNL. Carboplatin specimen technician updated and Dr. Meraz to sign. Pre meds released and given. Pt attempting to rest atthis time but states the morphine is starting to wear off. Is there any way I can get something for the pain. This RN sent halo to . Call akron in reach. 1440- MS IVP orders obtained, [...] Description 11/27/2024 1:00 PM EDT Appointment [facility] [address] [phone] 01/02/2025 9:30 AM EDT Office Visit [facility] Hematology Oncology [address] [place] [phone] Zechariah Meraz MD 271 [place] [address] 01/14/2025 10:30 AM EDT Appointment [facility] Radiation Oncology [address] [place] [phone] No Charles NP 271 [place] [address] documented as of this encounter Goals Goal Patient Goal Type Associated Problems Recent Progress Patient-Stated? Author Xi Mulligan, CREDIT RISK MANAGEMENT DIRECTOR Note: Pt will consume least restrictive PO diet without changes to medical or respiratory status to maintain adequate oral nutrition hydration Xi Ireland, CREDIT RISK MANAGEMENT DIRECTOR Note: Pt will participate in development of personalized HEP and perform 3-4xs/wk with min assist for modifications Xi Ireland, CREDIT RISK MANAGEMENT DIRECTOR Note: Pt will participate in ongoing education re dysphagia s/p chemoradiation and techniques for symptom management Xi Ireland, CREDIT RISK MANAGEMENT DIRECTOR Note: Pt will consume recommended diet textures and utilize swallow strategies given min verbal or visual cues documented as of this encounter Visit Diagnoses Not on filedocumented in this encounter Care Teams Supervisor Telephone Clerks Relationship Specialty Start Date End Date Leilani Veloz MD [address] PCP - General Internal Medicine 06/08/18 documented as of this encounter
--- OUTSIDE RECORDS SUMMARY | 2024-11-12 09:31 | XMS_ITS | Encounter Summary ---
Author Organization [facility] Address [address] [place] [address] Care Team Providers Care Talking Books Library Clerk Name Role Phone Leilani Veloz MD Primary Care Provider [phone] Encounter Details Date Type Department Care Team [...] Appointment [facility] [address] [place] [phone] 01/02/2025 9:30 AM EDT Office Visit [facility] Hematology Oncology [address] [place] [phone] Zechariah Meraz MD 271 [place] [address] 01/14/2025 10:30 AM EDT Appointment [facility] Radiation Oncology [address] [place] [phone] No Charles NP 271 [place] [address] documented as of this encounter Goals Goal Patient Goal Type Associated Problems Recent Progress Patient-Stated? Author LTG General No Xi Braun, FIRE SUPPRESSION CAPTAIN Note: Pt will consume least restrictive PO diet without changes to medical or respiratory status to maintain adequate oral nutrition hydration STG General No Xi Braun, FIRE SUPPRESSION CAPTAIN Note: Pt will participate in development of personalized HEP and perform 3-4xs/wk with min assist for modifications STG General Xi Devlin, FIRE SUPPRESSION CAPTAIN Note: Pt will participate in ongoing education re dysphagia s/p chemoradiation and techniques for symptom management STG General No Xi Braun, FIRE SUPPRESSION CAPTAIN Note: Pt will consume recommended diet textures and utilize swallow strategies given min verbal or visual cues documented as of this encounter Visit Diagnoses Not on filedocumented in this encounter Care Teams Talking Books Library Clerk Relationship Specialty Start Date End Date Leilani Veloz MD [facility] [address] PCP - General Internal Medicine 06/08/18 documented as of this encounter
--- OUTSIDE RECORDS SUMMARY | 2024-11-12 09:31 | XMS_ITS | Encounter Summary ---
Author Organization [facility] Address [address] [place] [address] Care Team Providers Care Activities Assistant Name Role Phone Leilani Veloz MD Primary Care Provider [phone] Encounter Details Date Type Department Care Team [...] 11/27/2024 1:00 PM EDT Appointment [facility] [address] [place] [phone] 01/02/2025 9:30 AM EDT Office Visit [facility] Hematology Oncology [address] [place] [phone] Zechariah Meraz MD [address] [place] [phone] 01/14/2025 10:30 AM EDT Appointment [facility] Radiation Oncology [address] [place] [phone] No Charles NP 271 [place] [address] documented as of this encounter Goals Goal Patient Goal Type Associated Problems Recent Progress Patient-Stated? Author LTG General No Xi Braun, FINANCIAL PLANNING ADVISER Note: Pt will consume least restrictive PO diet without changes to medical or respiratory status to maintain adequate oral nutrition hydration STG General No Xi Braun, FINANCIAL PLANNING ADVISER Note: Pt will participate in development of personalized HEP and perform 3-4xs/wk with min assist for modifications STG Xi Morris, FINANCIAL PLANNING ADVISER Note: Pt will participate in ongoing education re dysphagia s/p chemoradiation and techniques for symptom management Xi Ireland, FINANCIAL PLANNING ADVISER Note: Pt will consume recommended diet textures and utilize swallow strategies given min verbal or visual cues documented as of this encounter Visit Diagnoses Not on filedocumented in this encounter Care Teams Activities Assistant Relationship Specialty Start Date End Date Leilani Veloz MD [facility] [address] PCP - General Internal Medicine 06/08/18 documented as of this encounter
--- OUTSIDE RECORDS SUMMARY | 2024-11-12 09:31 | XMS_ITS | Encounter Summary ---
Author Organization [facility] Address [address] [place] [address] Care Team Providers Care Research Physicist Name Role Phone Leilani Veloz MD Primary Care Provider [phone] Encounter Details Date Type Department Care Team [...] originally was scheduled for chemotherapy. Unfortunately, pt foundation drill operator continues to elevate and plts are also [...] time. Call conklin in reach. 1100- Pita, mounter saxophones and Xi, TELEVISION NEWSCAST DIRECTOR came to chairside assisting pt with feeds [...] Appointment [facility] [address] [phone] 01/02/2025 9:30 AM EDT Office Visit [facility] Hematology Oncology [address] [place] [phone] Zechariah Meraz MD 271 [place] [phone] 01/14/2025 10:30 AM EDT Appointment [facility] Radiation Oncology [address] [phone] No Charles NP 271 [place] [address] documented as of this encounter Goals Goal Patient Goal Type Associated Problems Recent Progress Patient-Stated? Author LTG Xi Morris, TELEVISION NEWSCAST DIRECTOR Note: Pt will consume least restrictive PO diet without changes to medical or respiratory status to maintain adequate oral nutrition hydration [facility] Xi Morris, TELEVISION NEWSCAST DIRECTOR Note: Pt will participate in development of personalized HEP and perform 3-4xs/wk with min assist for modifications Xi Ireland, TELEVISION NEWSCAST DIRECTOR Note: Pt will participate in ongoing education re dysphagia s/p chemoradiation and techniques for symptom management [facility] Xi Morris, TELEVISION NEWSCAST DIRECTOR Note: Pt will consume recommended diet textures and utilize swallow strategies given min verbal or visual cues documented as of this encounter Visit Diagnoses Not on filedocumented in this encounter Care Teams Research Physicist Relationship Specialty Start Date End Date Leilani Veloz MD [address] [facility] [address] [place], [place] PCP - General Internal Medicine 06/08/18 documented as of this encounter
--- OUTSIDE RECORDS SUMMARY | 2024-11-12 09:31 | XMS_ITS | Encounter Summary ---
Author Organization [facility] Address [address] [place] [address] Care Team Providers Care Manager Software Name Role Phone Leilani Veloz MD Primary [...] Description 11/27/2024 1:00 PM EDT Appointment [facility] In[facility] [address] [place] [phone] 01/02/2025 9:30 AM EDT Office Visit [facility] Hematology Oncology [address] [place] [phone] Zechariah Meraz MD 271 [place] [address] 01/14/2025 10:30 AM EDT Appointment [facility] Radiation Oncology [address] [place] [phone] No Charles NP 271 [place] [address] documented as of this encounter Goals Goal Patient Goal Type Associated Problems Recent Progress Patient-Stated? Author LTG General Xi Devlin, COMPUTER REPAIRER Note: Pt will consume least restrictive PO diet without changes to medical or respiratory status to maintain adequate oral nutrition hydration STG General Xi Devlin, COMPUTER REPAIRER Note: Pt will participate in development of personalized HEP and perform 3-4xs/wk with min assist for modifications STG General No Xi Braun, COMPUTER REPAIRER Note: Pt will participate in ongoing education re dysphagia s/p chemoradiation and techniques for symptom management STG General No Xi Braun, COMPUTER REPAIRER Note: Pt will consume recommended diet textures and utilize swallow strategies given min verbal or visual cues documented as of this encounter Visit Diagnoses Not on filedocumented in this encounter Care Teams Manager Software Relationship Specialty Start Date End Date Leilani Veloz MD [facility] [address] PCP - General Internal Medicine 06/08/18 documented as of this encounter
--- OUTSIDE RECORDS SUMMARY | 2024-11-12 09:32 | XMS_ITS | Encounter Summary ---
Author Organization [facility] Address [address] [place] [address] Care Team Providers Care Insurance Counsel Name Role Phone Leilani Veloz MD Primary Care Provider [phone] Encounter Details Date Type Department Care Team [...] swallow medications so he purchased a pill inspecting and testing lead hand and will start crushing his pills at [...] Info) Description 11/27/2024 1:00 PM EDT Appointment [facility] In[facility] [address] [phone] 01/02/2025 9:30 AM EDT Office Visit [facility] Hematology Oncology [address] [place] [phone] Zechariah Meraz MD 271 [place] [address] 01/14/2025 10:30 AM EDT Appointment [facility] Radiation Oncology [address] [place] [phone] No Charles NP 271 [place] [address] documented as of this encounter Goals Goal Patient Goal Type Associated Problems Recent Progress Patient-Stated? Author Xi Mulligan, RN TRIAGE Note: Pt will consume least restrictive PO diet without changes to medical or respiratory status to maintain adequate oral nutrition hydration Xi Ireland, RN TRIAGE Note: Pt will participate in development of personalized HEP and perform 3-4xs/wk with min assist for modifications Xi Ireland, RN TRIAGE Note: Pt will participate in ongoing education re dysphagia s/p chemoradiation and techniques for symptom management Xi Ireland, RN TRIAGE Note: Pt will consume recommended diet textures [...] tongue documented in this encounter Care Teams Insurance Counsel Relationship Specialty Start Date End Date Leilani Veloz MD [address] [facility] [address] [place], [place] PCP - General Internal Medicine 06/08/18 documented as of this encounter
--- OUTSIDE RECORDS SUMMARY | 2024-11-12 09:32 | XMS_ITS ---
Author Name [facility] Organization Unknown Care Team Organization Name Specialty Phone Email Start Date End Da [facility]an [facility] 05/24/2024
--- OUTSIDE RECORDS SUMMARY | 2024-11-12 09:32 | XMS_ITS | Encounter Summary ---
Author Organization [facility] Address [address] [place] [address] Care Team Providers Care Business Area Manager Name Role Phone Leilani Veloz MD Primary Care Provider [phone] Encounter Details Date Type Department Care Team [...] unit after RT. Labs resulted and WNL. Global Compensation Director improved to 1.02. Pre hydration initiated and [...] about 600ml water. Pt had a full [employer] drink via g-tube as well as 240ml chicken broth PO. Awaiting one more good urine output of about 250-300ml. Pt aware and resting comfortably at this time. Call conklin in reach. 1255- Emend completed without incident. Pt up to BR. 150ml clear yellow urine. Cisplatin released. Pt resting comfortably without complaints. Call conklin in reach. 1345- Cisplatin initiated. Pt up [...] [facility] [address] [phone] 01/02/2025 9:30 AM EDT Office Visit [facility] Hematology Oncology [address] [place] [phone] Zechariah Meraz MD 271 [place] [address] 01/14/2025 10:30 AM EDT Appointment [facility] Radiation Oncology [address] [phone] No Charles, JANES 271 [place] [address] documented as of this encounter Goals Goal Patient Goal Type Associated Problems Recent Progress Patient-Stated? Author LTG Xi Morris, GUM SCORING MACHINE OPERATOR Note: Pt will consume least restrictive PO diet without changes to medical or respiratory status to maintain adequate oral nutrition hydration Xi Ireland, GUM SCORING MACHINE OPERATOR Note: Pt will participate in development of personalized HEP and perform 3-4xs/wk with min assist for modifications Xi Ireland, GUM SCORING MACHINE OPERATOR Note: Pt will participate in ongoing education re dysphagia s/p chemoradiation and techniques for symptom management [facility] Xi Morris, GUM SCORING MACHINE OPERATOR Note: Pt will consume recommended diet textures and utilize swallow strategies given min verbal or visual cues documented as of this encounter Visit Diagnoses Not on filedocumented in this encounter Care Teams Business Area Manager Relationship Specialty Start Date End Date Leilani Veloz MD [address] [facility] [address] [place], [place] PCP - General Internal Medicine 06/08/18 documented as of this encounter
--- OUTSIDE RECORDS SUMMARY | 2024-11-12 09:32 | XMS_ITS | Clinical Summary ---
Author Organization [facility] Address [address] [place] [address] Phone Care Team Providers Care Call Or Contact Centre Manager Name Role Phone Leilani Veloz MD Primary Care Provider [phone] Allergies No known active allergies Medications atorvastatin (LIPITOR) 80 mg tablet Take 40 mg by mouth every other day. Every other day Active valACYclovir (VALTREX) 1 gram tablet Take 1 tablet (1,000 mg total) by mouth. Active sildenafiL (VIAGRA) 100 mg tablet Take 1 tablet (100 mg total) by mouth 2 (two) times a week. 06/23/2024 Active apixaban (ELIQUIS) 5 mg tablet Take 1 tablet (5 mg total) by mouth 2 (two) times a day. 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, [facility] V28) 12/28/2023 Cancer Staging:Clinical stage from 11/22/2023:Stage II(cT2, cN2, cM0, p16+) - Signed by Chris Benitez MD on 05/21/2024 Pulmonary embolism ([facility] V24, [facility] V28) Encounters Date Type Department Care Team Description 10/09/2024 9:18 AM EDT - 10/09/2024 11:59 PM EDT Hospital Encounter [facility] Center [address] [facility] [address] [place] [address] Zechariah Meraz MD Malignant neoplasm of base of tongue ([facility] V24, [facility] V28) (Primary Dx) Discharge Disposition: Home or Self Care 10/02/2024 9:45 AM EDT Office Visit [facility] Hematology Oncology [address] [place] [phone] Zechariah Meraz MD Malignant neoplasm of base of tongue ([facility] V24, [facility] V28) (Primary Dx) 08/27/2024 9:54 AM EST - 08/27/2024 11:59 PM EST Hospital Encounter [facility] Infusion Center [address] [place] [phone] Zechariah Meraz MD Malignant neoplasm of base of tongue ([facility] V24, [facility] V28) (Primary Dx) Discharge Disposition: Home or Self Care 08/22/2024 Telephone [facility] Radiation Oncology [address] [place] [phone] Angelica Cui, SERGEI Med Refill from Last 3 Months Immunizations Name Administration [...] Medical History Date Comments Hypertension DX:Hypertension Stroke ([facility] V24, [facility] V28) DX:Stroke (HCC) Pulmonary embolism ([facility] V24, [facility] V28) DVT (deep venous thrombosis) ([facility] V24, [facility] V28) Family History Medical History Relation Name Comments [...] Orientation Straight 08/27/2024 9: 53 AM EST Obstetrics History Last Filed Vital Signs Vital [...] Info) Description 11/27/2024 1:00 PM EDT Appointment [facility] [address] [phone] 01/02/2025 9:30 AM EDT Office Visit [facility] Hematology Oncology [address] [place] [address] Zechariah Meraz MD [address] [place] [address] 01/14/2025 10:30 AM EDT Appointment [facility] Radiation Oncology [address] [place] [phone] No Charles NP [address] [place] [address] Health Maintenance Due Date Last Done Comments DTaP,Tdap,and Td Vaccines (1 - Tdap) 1983 Colorectal Cancer Screening: Colonoscopy 06/11/2022 Depression Screening 06/11/2022 HIV Screening 06/11/2022 Hepatitis C Screening 06/11/2022 Lung Cancer Screening (Low Dose CT) 06/11/2022 Social Influencers of Health Screening 06/11/2022 RSV Immunization Adult Patients (1 - Risk 60-74 years 1-dose series) 2024 COVID-19 Vaccine (9 - Moderna risk 2023- season) 2024 05/02/2024, 07/12/2023, 05/11/2022, Additional history exists Hypertension/CHF/CAD Annual BMP Blood Test 06/19/2025 06/19/2024 Cholesterol Screening (Lipid Panel) 06/19/2029 06/19/2024 Zoster Vaccines Completed 12/16/2020, 06/30/2020 Pneumococcal Vaccine: 50+ Years Completed 07/26/2023, 06/30/2020, 12/05/2018, Additional history exists Pneumococcal Vaccine: Pediatrics (0 to 5 Years) and At-Risk Patients (6 to 64 Years) Completed 07/26/2023, 06/30/2020, 12/05/2018, Additional history exists Influenza Vaccine Completed 05/02/2024, [...] age to complete this topic Meningococcal B Vaccine Aged Out No l onger eligible based on patient's age to complete this topic RSV Immunization Patients Under 20 months Aged Out No longer eligible based on patient's age to complete this topic Varicella Vaccines Aged Out No longer eligible based on patient's age to complete this topic Goals Goal Patient Goal Type Associated Problems Recent Progress Patient-Stated? Author LTG Xi Morris, UNITIZER Note: Pt will consume least restrictive PO diet without changes to medical or respiratory status to maintain adequate oral nutrition hydration [facility] Xi Morris, UNITIZER Note: Pt will participate in development of personalized HEP and perform 3-4xs/wk with min assist for modifications Xi Ireland, UNITIZER Note: Pt will participate in ongoing education re dysphagia s/p chemoradiation and techniques for symptom management [facility] Xi Morris, UNITIZER Note: Pt will consume recommended diet textures and utilize swallow strategies given min verbal or visual cues Procedures Procedure Name Priority Date/Time Associated Diagnosis Comments COMPREHENSIVE METABOLIC PANEL Routine 06/19/2024 9:54 AM EST 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, CMS/HCC V28) Acquired pancytopenia (CMS/HCC V24, CMS/HCC V28) Hypertension, unspecified type Pulmonary thrombosis (CMS/HCC V24, CMS/HCC V28) LIPID PANEL WITH REFLEX TO DIRECT LDL Routine 06/19/2024 9:54 AM EST 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, CMS/HCC V28) Acquired pancytopenia (CMS/HCC V24, CMS/HCC V28) Hypertension, unspecified type Pulmonary thrombosis (CMS/HCC V24, CMS/HCC V28) from Last 3 Months or Most Recently Relevant to Health Maintenance Results * Lipid panel with reflex to direct LDL (06/19/2024 9:54 AM EST) Cholesterol 98 0 - 200 mg/dL LAB CHEMISTRY METHOD 06/19/2024 3:24 PM EST [facility] Triglycerides 48 0 - 150 mg/dL LAB CHEMISTRY METHOD 06/19/2024 3:24 PM EST [facility] HDL 52 >=40 mg/dL LAB CHEMISTRY METHOD 06/19/2024 3:24 PM [facility] LDL Calculated 36 0 - 100 mg/dL LAB CHEMISTRY METHOD 06/19/2024 3:24 PM EST [facility] VLDL Cholesterol Juan Daniel 9.6 mg/dL LAB CHEMISTRY METHOD 06/19/2024 3:24 PM EST [facility] Non HDL Chol. (LDL+VLDL) 46 <145 mg/dL LAB CHEMISTRY METHOD 06/19/2024 3:24 PM EST [facility] Chol/HDL Ratio 1.9 0.0 - 4.4 LAB CHEMISTRY METHOD 06/19/2024 3:24 PM EST [facility] Blood Venous blood specimen / Unknown Venipuncture / Unknown 06/19/2024 9:54 AM EST 06/19/2024 9:54 AM EST us Leilani Veloz MD LAB BLOOD ORDERABLES Final Re sult [facility] [address] [place] [address], [place] [phone] * (ABNORMAL) Comprehensive metabolic panel (06/19/2024 9:54 AM EST) Sodium 145 133 - 145 mmol/L LAB CHEMISTRY METHOD 06/19/2024 3:09 PM [facility] Potassium 4.3 3.5 - 5.5 mmol/L LAB CHEMISTRY METHOD 06/19/2024 3:09 PM [facility] Chloride 111(H) 96 - 110 mmol/L LAB CHEMISTRY METHOD 06/19/2024 3:09 PM [facility] CO2 29 21 - 32 mmol/L LAB CHEMISTRY METHOD 06/19/2024 3:09 PM [facility] Anion Gap 5 3 - 11 LAB CHEMISTRY METHOD 06/19/2024 3:09 PM [facility] Glucose 89 70 - 100 mg/dL LAB CHEMISTRY METHOD 06/19/2024 3:09 PM [facility] BUN 10 5 - 25 mg/dL LAB CHEMISTRY METHOD 06/19/2024 3:09 PM [facility] Creatinine 0.68(L) 0.70 - 1.30 mg/dL LAB CHEMISTRY METHOD 06/19/2024 3:09 PM [facility] eGFR 107 >=60 mL/min/1. 73m2 LAB CHEMISTRY METHOD 06/19/2024 3:09 PM [facility] Comment:Calculation based on the??Chronic Kidney Disease Epidemiology Collaboration (CKD-EPI) equation refit??without adjustment for race. BUN/Creatinine Ratio 14.7 LAB CHEMISTRY METHOD 06/19/2024 3:09 PM [facility] Calcium 9.1 8.5 - 10.5 mg/dL LAB CHEMISTRY METHOD 06/19/2024 3:09 PM [facility] AST (SGOT) 24 10 - 42 unit/L LAB CHEMISTRY METHOD 06/19/2024 3:09 PM [facility] ALT (SGPT) 34 10 - 60 unit/L LAB CHEMISTRY METHOD 06/19/2024 3:09 PM EST [facility] Alkaline Phosphatase 59 42 - 121 unit/L LAB CHEMISTRY METHOD 06/19/2024 3:09 PM [facility] Total Protein 5.7(L) 6.0 - 8.0 g/dL LAB CHEMISTRY METHOD 06/19/2024 3:09 PM EST [facility] Albumin 3.3 3.2 - 5.0 g/dL LAB CHEMISTRY METHOD 06/19/2024 3:09 PM [facility] Total Bilirubin 0.5 0.0 - 1.4 mg/dL LAB CHEMISTRY METHOD 06/19/2024 3:09 PM [facility] Blood Venous blood specimen / Unknown Venipuncture / Unknown 06/19/2024 9:54 AM EST 06/19/2024 9:54 AM EST Leilani Veloz MD LAB BLOOD ORDERABLES Final Re sult [facility] [address] [place] [address], from Last 3 Months or Most Recently Relevant to Health Maintenance Insurance [facility] ([facility]) Care Teams Call Or Contact Centre Manager Relationship Specialty Start Date End Date Leilani Veloz MD [address] [place] [address] PCP - General Internal Medicine 06/08/18
== END 2024-11-12 09:43 | disposition home or self-care (01) ==
LOC: HO.HOS 08:56
PROVIDERS: PCP Internal Medicine; Visit Provider Orthopaedic Surgery
DX: M65.312 Trigger thumb, left thumb (principal); G56.02 Carpal tunnel syndrome, left upper limb
CPT/HCPCS: 99214

== ENCOUNTER → 2024-11-12 08:57 | Outpatient (BNV) | payer BC, SELFPAY | PROVIDERS: Visit Provider Radiology Diagnostic Radiology | DX: M79.642 Pain in left hand (principal) | CPT/HCPCS: 73130 ==

== ENCOUNTER 2024-11-12 11:14 | Outpatient (REF) | payer BC, SELFPAY ==
--- NOTE | ~2024-11-12 | XR_ITS ---
EXAMINATION: XR HAND, LEFT CLINICAL INFORMATION: M79.642 - Pain in left hand; attention to thumb COMPARISON: None available. TECHNIQUE: PA, lateral, and oblique views of the left hand. FINDINGS: No fracture, dislocation, or suspicious bone lesion. Normal bone mineralization. No periarticular osteopenia identified. No definite erosions. 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 Subchondral cyst present in the proximal scaphoid. Mild negative ulnar variance. Carpal bones intact and normally aligned. No soft tissue abnormalities identified. XR/XR hand LT min 3V IMPRESSION: 1. No acute bony abnormalities. 2. 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 Electronically signed by: William Charles MD 11/12/2024 09:34 AM EDT
--- OUTSIDE RECORDS SUMMARY | 2024-11-13 12:42 | XMS_ITS | Encounter Summary ---
Author Organization [facility] Address [address] [place] [address] Care Team Providers Care Factory Worker Name Role Phone Leilani Veloz MD Primary Care Provider [phone] Encounter Details Date Type Department Care Team [...] Description 11/28/2024 1:30 PM EDT Appointment [facility] Infusion Center [address] [place] [phone] 01/02/2025 9:30 AM EDT Office Visit [facility] Hematology Oncology [address] [place] [phone] Zechariah Meraz MD 271 [place] [address] 01/14/2025 10:30 AM EDT Appointment [facility] Radiation Oncology [address] [place] [phone] No Charles NP 271 [place] [address] documented as of this encounter Goals Goal Patient Goal Type Associated Problems Recent Progress Patient-Stated? Author LTXi Ramirez, LOCOMOTIVE SWITCH OPERATOR Note: Pt will consume least restrictive PO diet without changes to medical or respiratory status to maintain adequate oral nutrition hydration STG Xi Morris, LOCOMOTIVE SWITCH OPERATOR Note: Pt will participate in development of personalized HEP and perform 3-4xs/wk with min assist for modifications Xi Ireland, LOCOMOTIVE SWITCH OPERATOR Note: Pt will participate in ongoing education re dysphagia s/p chemoradiation and techniques for symptom management STG Xi Morris, LOCOMOTIVE SWITCH OPERATOR Note: Pt will consume recommended diet textures and utilize swallow strategies given min verbal or visual cues documented as of this encounter Visit Diagnoses Not on filedocumented in this encounter Care Teams Factory Worker Relationship Specialty Start Date End Date Leilani Veloz MD [facility] [address] [place], [place] PCP - General Internal Medicine 06/08/18 documented as of this encounter
--- OUTSIDE RECORDS SUMMARY | 2024-11-13 12:42 | XMS_ITS | Encounter Summary ---
Author Organization [facility] Address [address] [place] [address] Care Team Providers Care Drywall Taper Helper Name Role Phone Leilani Veloz MD Primary Care Provider [phone] Encounter Details Date Type Department Care Team [...] Description 11/28/2024 1:30 PM EDT Appointment [facility] Infusion Center [address] [place] [phone] 01/02/2025 9:30 AM EDT Office Visit [facility] Hematology Oncology [address] [place] [phone] Zechariah Meraz MD 271 [place] [phone] 01/14/2025 10:30 AM EDT Appointment [facility] Radiation Oncology [address] [place] [phone] No Charles NP 271 [place] [address] documented as of this encounter Goals Goal Patient Goal Type Associated Problems Recent Progress Patient-Stated? Author LTG General Xi Devlin, CONVEYOR OPERATOR Note: Pt will consume least restrictive PO diet without changes to medical or respiratory status to maintain adequate oral nutrition hydration STG General No Xi Braun, CONVEYOR OPERATOR Note: Pt will participate in development of personalized HEP and perform 3-4xs/wk with min assist for modifications STG General No Xi Braun, CONVEYOR OPERATOR Note: Pt will participate in ongoing education re dysphagia s/p chemoradiation and techniques for symptom management STG Xi Morris, CONVEYOR OPERATOR Note: Pt will consume recommended diet textures and utilize swallow strategies given min verbal or visual cues documented as of this encounter Visit Diagnoses Not on filedocumented in this encounter Care Teams Drywall Taper Helper Relationship Specialty Start Date End Date Leilani Veloz MD [address] PCP - General Internal Medicine 06/08/18 documented as of this encounter
--- OUTSIDE RECORDS SUMMARY | 2024-11-13 12:42 | XMS_ITS | Encounter Summary ---
Author Organization [facility] Address [address] [place] [address] Care Team Providers Care Mechanical Meter Tester Name Role Phone Leilani Veloz MD Primary [...] Info) Description 11/28/2024 1:30 PM EDT Appointment [facility] Infusion Center [address] [place] [phone] 01/02/2025 9:30 AM EDT Office Visit [facility] Hematology Oncology [address] [place] [phone] Zechariah Meraz MD [address] [place] [phone] 01/14/2025 10:30 AM EDT Appointment [facility] Radiation Oncology [address] [place] [phone] No Charles NP 271 [place] [address] documented as of this encounter Goals Goal Patient Goal Type Associated Problems Recent Progress Patient-Stated? Author LTG General No Xi Braun, JUTE BAG CUTTING MACHINE OPERATOR Note: Pt will consume least restrictive PO diet without changes to medical or respiratory status to maintain adequate oral nutrition hydration STG General No Xi Braun, JUTE BAG CUTTING MACHINE OPERATOR Note: Pt will participate in development of personalized HEP and perform 3-4xs/wk with min assist for modifications Xi Ireland, JUTE BAG CUTTING MACHINE OPERATOR Note: Pt will participate in ongoing education re dysphagia s/p chemoradiation and techniques for symptom management Xi Ireland, JUTE BAG CUTTING MACHINE OPERATOR Note: Pt will consume recommended diet textures and utilize swallow strategies given min verbal or visual cues documented as of this encounter Visit Diagnoses Not on filedocumented in this encounter Care Teams Mechanical Meter Tester Relationship Specialty Start Date End Date Leilani Veloz MD [facility] [address] PCP - General Internal Medicine 06/08/18 documented as of this encounter
--- OUTSIDE RECORDS SUMMARY | 2024-11-13 12:42 | XMS_ITS | Encounter Summary ---
Author Organization [facility] Address [address] [place] [address] Care Team Providers Care Vice President [employer] Market Insights Name Role Phone Leilani Veloz MD Primary Care Provider [phone] Encounter Details Date Type Department Care Team [...] Appointment [facility] Infusion Center [address] [place] [phone] 01/02/2025 9:30 AM EDT Office Visit [facility] Hematology Oncology [address] [place] [phone] Zechariah Meraz MD [address] [place] [phone] 01/14/2025 10:30 AM EDT Appointment [facility] Radiation Oncology [address] [place] [phone] No Charles NP 271 [place] [address] documented as of this encounter Goals Goal Patient Goal Type Associated Problems Recent Progress Patient-Stated? Author LTG General No Xi Braun, TRANSIT DEPARTMENT CLERK Note: Pt will consume least restrictive PO diet without changes to medical or respiratory status to maintain adequate oral nutrition hydration STG General No Xi Braun, TRANSIT DEPARTMENT CLERK Note: Pt will participate in development of personalized HEP and perform 3-4xs/wk with min assist for modifications Xi Ireland, TRANSIT DEPARTMENT CLERK Note: Pt will participate in ongoing education re dysphagia s/p chemoradiation and techniques for symptom management Xi Ireland, TRANSIT DEPARTMENT CLERK Note: Pt will consume recommended diet textures and utilize swallow strategies given min verbal or visual cues documented as of this encounter Visit Diagnoses Not on filedocumented in this encounter Care Teams Vice President [employer] Relationship Specialty Start Date End Date Leilani Veloz MD [facility] [address] PCP - General Internal Medicine 06/08/18 documented as of this encounter
--- OUTSIDE RECORDS SUMMARY | 2024-11-13 12:42 | XMS_ITS ---
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 Current Oncology Plans [facility] OP HYDRATION* Plan Start Date:02/29/2024 Plan Provider:Zechariah Meraz MD Linked Problems Malignant neoplasm of base o f tongue (HCC) Treatment Medications sodium chloride (NS) 0.9 % Past Plans ONCOLOGY TREATMENT Plan Name Start Date Discontinue Date Treatment Medications Discontinue Reason Plan Provider Cycles [facility] OP WEEKLY CARBOPLATIN (HEAD & NECK) 024 04/12/2024 albuterol (PROVENTIL)CARBOplatin (PARAPLATIN) chemo infusion (by AUC)dexamethasone (DECADRON) DOSE > 10 mg IVPBdexamethasone sod phosphate PF (DECADRON)diphenhydrAMIN E (BENADRYL)EPINEPHrinefam otidine (PF) (PEPCID)hydrocortisone (SOLU-CORTEF) IVondansetron (ZOFRAN-ODT)palonosetron (ALOXI)prochlorperazine (COMPAZINE)Saline Flush 0.9 %sodium chloride (NS) 0.9 %sodium chloride 0.9% bolus (NS) Therapy Complete Zechariah Meraz MD 1 of 1 cycle started [facility] OP CISPLATIN WEEKLY 024 03/05/2024 albuterol (PROVENTIL)CISplatin (PLATINOL) chemo infusion No mannitolcustom IV infusion builderdexamethasone (DECADRON)diphenhydrAMIN E (BENADRYL)EPINEPHrinefam otidine (PF) (PEPCID)fosaprepitant IV Piggybackhydrocortisone (SOLU-CORTEF) IVpalonosetron (ALOXI)Saline Flush 0.9 %sodium chloride (NS) 0.9 %sodium chloride 0.9% bolus (NS) Not Tolerated Zechariah Meraz MD 1 of 3 cycles started [facility] OP CISPLATIN 100MG/M2 (FOR USE WITH [...] treatments are documented for this patient in [facility]. Treatments may have been administered in another system.
--- OUTSIDE RECORDS SUMMARY | 2024-11-13 12:42 | XMS_ITS | Patient Health Record ---
Author Organization [facility] Carlito Padgett Address [address] [address] Care Team Providers Care Package Pick Up Name Role Phone Chaddsemaj Leilani Primary Care Provider Unavailab Otto Castelan Unavailable [phone] Allergies No Known Allergies Reason For Referral [...] Problem Status W/U Status Risk Notes Problem [id number] Fungal infection of nail (B35.1) Active confirmed Rx drug management (4),Response to treatment,Unr esolved Encounters Encounter Location Date Provider Diagnosis [facility] [address] [facility] [place] [address] 01/29/2024 Otto Suh Plan Of Treatment No Information Insurance Providers Payer Name Payer Address Payer Phone Subscriber Number Group Number Insured Name Patient Relationship to Insured Coverage Start Date Coverage End Date Eric [facility] [address] [place] [address] [id number] Donovan Ortiz Self - patient is the insured Medical (General) History Medical History History ICD Code Broken bones CAD (Cholesterol) High blood pressure Stroke Chicken pox Surgical History Surgery Date(Month/Year) lobectomy 07/18/18
--- OUTSIDE RECORDS SUMMARY | 2024-11-13 12:42 | XMS_ITS | Encounter Summary ---
Author Organization [facility] Address [address] [place] [address] Care Team Providers Care Lean Leader Name Role Phone Leilani Veloz MD Primary Care Provider [phone] Encounter Details Date Type Department Care Team [...] Info) Description 11/28/2024 1:30 PM EDT Appointment Infusion Center [address] [phone] 01/02/2025 9:30 AM EDT Office Visit Hematology Oncology [address] [place] [phone] Zechariah Meraz MD 271 [place] [phone] 01/14/2025 10:30 AM EDT Appointment Radiation Oncology [address] [place] [phone] No Charles NP 271 [place] [address] documented as of this encounter Goals Goal Patient Goal Type Associated Problems Recent Progress Patient-Stated? Author LTG Xi Morris, GEOTHERMAL SYSTEM INSTALLER Note: Pt will consume least restrictive PO diet without changes to medical or respiratory status to maintain adequate oral nutrition hydration STG Xi Morris, GEOTHERMAL SYSTEM INSTALLER Note: Pt will participate in development of personalized HEP and perform 3-4xs/wk with min assist for modifications STG Xi Morris, GEOTHERMAL SYSTEM INSTALLER Note: Pt will participate in ongoing education re dysphagia s/p chemoradiation and techniques for symptom management STG Xi Morris, GEOTHERMAL SYSTEM INSTALLER Note: Pt will consume recommended diet textures and utilize swallow strategies given min verbal or visual cues documented as of this encounter Visit Diagnoses Not on filedocumented in this encounter Care Teams Lean Leader Relationship Specialty Start Date End Date Leilani Veloz MD 1221 [facility] [address] [place], [place] PCP - General Internal Medicine 06/08/18 documented as of this encounter
--- OUTSIDE RECORDS SUMMARY | 2024-11-13 12:42 | XMS_ITS | Encounter Summary ---
Author Organization [facility] Address [address] [place] [address] Care Team Providers Care Clinical Dental Technician Name Role Phone Leilani Veloz MD Primary Care Provider [phone] Encounter Details Date Type Department Care Team [...] Description 11/28/2024 1:30 PM EDT Appointment [facility] Infusion Center [address] [place] [phone] 01/02/2025 9:30 AM EDT Office Visit [facility] Hematology Oncology [address] [place] [phone] Zechariah Meraz MD [address] [place] [phone] 01/14/2025 10:30 AM EDT Appointment [facility] Radiation Oncology [address] [place] [phone] No Charles NP [address] [place] [address] documented as of this encounter Goals Goal Patient Goal Type Associated Problems Recent Progress Patient-Stated? Author LTG General No Xi Braun, ROTARY DRUM DYER Note: Pt will consume least restrictive PO diet without changes to medical or respiratory status to maintain adequate oral nutrition hydration STG General No Xi Braun, ROTARY DRUM DYER Note: Pt will participate in development of personalized HEP and perform 3-4xs/wk with min assist for modifications [facility] General Xi Devlin, ROTARY DRUM DYER Note: Pt will participate in ongoing education re dysphagia s/p chemoradiation and techniques for symptom management Xi Ireland, ROTARY DRUM DYER Note: Pt will consume recommended diet textures and utilize swallow strategies given min verbal or visual cues documented as of this encounter Visit Diagnoses Not on filedocumented in this encounter Care Teams Clinical Dental Technician Relationship Specialty Start Date End Date Leilani Veloz MD 12[address] [facility] [address] [place], [place] PCP - General Internal Medicine 06/08/18 documented as of this encounter
--- OUTSIDE RECORDS SUMMARY | 2024-11-13 12:42 | XMS_ITS | Encounter Summary ---
Author Organization [facility] Address [address] [place] [address] Care Team Providers Care Ground Water Pump Installer Name Role Phone Leilani Veloz MD Primary Care Provider [phone] Encounter Details Date Type Department Care Team [...] EDT Appointment [facility] Infusion Center [address] [place] [phone] 01/02/2025 9:30 AM EDT Office Visit [facility] Hematology Oncology [address] [place] [phone] Zechariah Meraz MD 271 [place] [address] 01/14/2025 10:30 AM EDT Appointment [facility] Radiation Oncology [address] [place] [phone] No Charles NP 271 [place] [address] documented as of this encounter Goals Goal Patient Goal Type Associated Problems Recent Progress Patient-Stated? Author LTG General Xi Devlin, CLAIM SPECIALIST Note: Pt will consume least restrictive PO diet without changes to medical or respiratory status to maintain adequate oral nutrition hydration STG Xi Morris, CLAIM SPECIALIST Note: Pt will participate in development of personalized HEP and perform 3-4xs/wk with min assist for modifications STG Xi Morris, CLAIM SPECIALIST Note: Pt will participate in ongoing education re dysphagia s/p chemoradiation and techniques for symptom management STG Xi Morris, CLAIM SPECIALIST Note: Pt will consume recommended diet textures and utilize swallow strategies given min verbal or visual cues documented as of this encounter Visit Diagnoses Not on filedocumented in this encounter Care Teams Ground Water Pump Installer Relationship Specialty Start Date End Date Leilani Veloz MD [facility] [address] PCP - General Internal Medicine 06/08/18 documented as of this encounter
--- OUTSIDE RECORDS SUMMARY | 2024-11-13 12:42 | XMS_ITS | Encounter Summary ---
Author Organization [facility] Address [address] [place] [address] Care Team Providers Care Booking Prizer Name Role Phone Leilani Veloz MD Primary Care Provider [phone] Encounter Details Date Type Department Care Team [...] prefers morphine script be sent to the [facility] in the [facility]. This RN notified Dr. Meraz. No further questions. Next appts in place and reviewed. Port flushed/deaccessed per protocol. Pt left unit, stable at D/C. documented in this encounter Plan of Treatment Upcoming Encounters Date Type Department Care Team (Late st Contact Info) Description 11/28/2024 1:30 PM EDT Appointment [facility] Infusion Center [address] [place] [address] 2[address] [place] [address] 01/02/2025 9:30 AM EDT Office Visit [facility] Hematology Oncology [address] [place] [phone] Zechariah Meraz MD [address] [place] [address] 01/14/2025 10:30 AM EDT Appointment [facility] Radiation Oncology [address] [place] [phone] No Charles NP [address] [place] [address] documented as of this encounter Goals Goal Patient Goal Type Associated Problems Recent Progress Patient-Stated? Author LTG General No Xi Braun, REFRACTORY FURNACE DESIGNER Note: Pt will consume least restrictive PO diet without changes to medical or respiratory status to maintain adequate oral nutrition hydration STG General No Aparna, Xi B, REFRACTORY FURNACE DESIGNER Note: Pt will participate in development of personalized HEP and perform 3-4xs/wk with min assist for modifications Xi Ireland, REFRACTORY FURNACE DESIGNER Note: Pt will participate in ongoing education re dysphagia s/p chemoradiation and techniques for symptom management Xi Ireland, REFRACTORY FURNACE DESIGNER Note: Pt will consume recommended diet textures and utilize swallow strategies given min verbal or visual cues documented as of this encounter Visit Diagnoses Not on filedocumented in this encounter Care Teams Booking Prizer Relationship Specialty Start Date End Date Leilani Veloz MD [facility] [address] PCP - General Internal Medicine 06/08/18 documented as of this encounter
--- OUTSIDE RECORDS SUMMARY | 2024-11-13 12:42 | XMS_ITS | Encounter Summary ---
Author Organization [facility] Address [address] [place] [address] Care Team Providers Care Motor Tester Name Role Phone Leilani Veloz MD Primary Care Provider [phone] Encounter Details Date Type Department Care Team [...] Description 11/28/2024 1:[address] [facility] Infusion Center [address] [place] [phone] 01/02/2025 9:30 AM EDT Office Visit [facility] Hematology Oncology [address] [place] [phone] Zechariah Meraz MD [address] [place] [address] 01/14/2025 10:[address] [facility] Radiation Oncology [address] [place] [phone] No Charles NP [address] [place] [address] documented as of this encounter Goals Goal Patient Goal Type Associated Problems Recent Progress Patient-Stated? Author LTG General No Xi Braun, LUMBER SALVAGER Note: Pt will consume least restrictive PO diet without changes to medical or respiratory status to maintain adequate oral nutrition hydration STG General No Xi Braun, LUMBER SALVAGER Note: Pt will participate in development of personalized HEP and perform 3-4xs/wk with min assist for modifications STG General No Xi Braun, LUMBER SALVAGER Note: Pt will participate in ongoing education re dysphagia s/p chemoradiation and techniques for symptom management STG General No Xi Braun, LUMBER SALVAGER Note: Pt will consume recommended diet textures and utilize swallow strategies given min verbal or visual cues documented as of this encounter Visit Diagnoses Not on filedocumented in this encounter Care Teams Motor Tester Relationship Specialty Start Date End Date Leilani Veloz MD [address] [place] [address] PCP - General Internal Medicine 06/08/18 documented as of this encounter
--- OUTSIDE RECORDS SUMMARY | 2024-11-13 12:42 | XMS_ITS | Encounter Summary ---
Author Organization [facility] Address [address] [place] [address] Care Team Providers Care Payroll Technician Name Role Phone Leilani Veloz MD Primary Care Provider [phone] Encounter Details Date Type Department Care Team [...] Appointment [facility] Infusion Center [address] [place] [address] 2nd [place] [address] 01/02/2025 9:30 AM EDT Office Visit [facility] Hematology Oncology [address] [place] [address] Zechariah Meraz MD [address] [place] [address] 01/14/2025 10:30 AM EDT Appointment [facility] Radiation Oncology [address] [place] [address] No Charles NP [address] [place] [address] documented as of this encounter Goals Goal Patient Goal Type Associated Problems Recent Progress Patient-Stated? Author LTXi Ramirez, PLANT WRAPPER Note: Pt will consume least restrictive PO diet without changes to medical or respiratory status to maintain adequate oral nutrition hydration [facility] Xi Morris, PLANT WRAPPER Note: Pt will participate in development of personalized HEP and perform 3-4xs/wk with min assist for modifications Xi Ireland, PLANT WRAPPER Note: Pt will participate in ongoing education re dysphagia s/p chemoradiation and techniques for symptom management [facility] Xi Morirs, PLANT WRAPPER Note: Pt will consume recommended diet textures and utilize swallow strategies given min verbal or visual cues documented as of this encounter Visit Diagnoses Not on filedocumented in this encounter Care Teams Payroll Technician Relationship Specialty Start Date End Date Leilani Veloz MD [address] [place], [place] PCP - General Internal Medicine 06/08/18 documented as of this encounter
--- OUTSIDE RECORDS SUMMARY | 2024-11-13 12:42 | XMS_ITS | Encounter Summary ---
Author Organization [facility] Address [address] [place] [address] Care Team Providers Care Bending Shed Worker Name Role Phone Leilani Veloz MD Primary Care Provider [phone] Encounter Details Date Type Department Care Team [...] concern. Cisplatin initiated. PT sitting with Pita Signal Manager and Chani speech pathologist. PT up [...] Description 11/28/2024 1:[address] [facility] Infusion Center [address] [phone] 01/02/2025 9:30 AM EDT Office Visit [facility] Hematology Oncology [address] [place] [phone] Zechariah Meraz MD [address] [place] [phone] 01/14/2025 10:[address] [facility] Radiation Oncology [address] [place] [phone] No Charles NP [address] [place] [address] documented as of this encounter Goals Goal Patient Goal Type Associated Problems Recent Progress Patient-Stated? Author LTG Xi Morris, HORTICULTURAL NURSERY ASSISTANT Note: Pt will consume least restrictive PO diet without changes to medical or respiratory status to maintain adequate oral nutrition hydration [facility] Xi Morris, HORTICULTURAL NURSERY ASSISTANT Note: Pt will participate in development of personalized HEP and perform 3-4xs/wk with min assist for modifications Xi Ireland, HORTICULTURAL NURSERY ASSISTANT Note: Pt will participate in ongoing education re dysphagia s/p chemoradiation and techniques for symptom management [facility] Xi Morris, HORTICULTURAL NURSERY ASSISTANT Note: Pt will consume recommended diet textures and utilize swallow strategies given min verbal or visual cues documented as of this encounter Visit Diagnoses Diagnosis Malignant neoplasm of base of tongue (CMS/HCC V24, CMS/HCC V28) Malignant neoplasm of base of tongue documented in this encounter Care Teams Bending Shed Worker Relationship Specialty Start Date End Date Leilani Veloz MD [address] [place], [place] PCP - General Internal Medicine 06/08/18 documented as of this encounter
--- OUTSIDE RECORDS SUMMARY | 2024-11-13 12:42 | XMS_ITS ---
Author Organization [facility] Address [address] [place] [address] Phone Care Team Providers Care Model Builder Name Role Phone Leilani Veloz MD Primary Care Provider [phone] Active Problems Problem Noted Date Diagnosed Date Malignant neoplasm of base o f tongue ([facility] V24, [facility] V28) 12/28/2023 Cancer Staging:Clinical stage from 11/22/2023:Stage II(cT2, cN2, cM0, p16+) - Signed by Chris Benitez MD on 05/21/2024 Pulmonary embolism ([facility] V24, [facility] V28) Current Oncology Plans CENTRAL VENOUS ACCESS ( CVA ) MAINTENANCE / BLOOD DRAW / CATHETER CLEARANCE / DRESSING CHANGE / FLUSH* Plan Start Date:10/09/2024 Plan Provider:Zechariah Meraz MD Linked Problems Malignant neoplasm of base o f tongue ([facility] V24, [facility] V28) Treatment Medications No medications scheduled. Past Plans No past plan information found. Radiation Treatments * No radiation treatments are documented for this patient in [facility]. Treatments may have been administered in another system.
--- OUTSIDE RECORDS SUMMARY | 2024-11-13 12:42 | XMS_ITS | Encounter Summary ---
Author Organization [facility] Address [address] [place] [address] Care Team Providers Care Embroidery Specialist Name Role Phone Leilani Veloz MD [...] Appointment [facility] Infusion Center [address] [place] [phone] 01/02/2025 9:30 AM EDT Office Visit [facility] Hematology Oncology [address] [place] [phone] Zechariah Meraz MD [address] [place] [address] 01/14/2025 10:30 AM EDT Appointment [facility] Radiation Oncology [address] [place] [phone] No Charles NP [address] [place] [address] documented as of this encounter Goals Goal Patient Goal Type Associated Problems Recent Progress Patient-Stated? Author LTG General No Xi Braun, INTERNET MARKETING COORDINATOR Note: Pt will consume least restrictive PO diet without changes to medical or respiratory status to maintain adequate oral nutrition hydration STG General No Xi Braun, INTERNET MARKETING COORDINATOR Note: Pt will participate in development of personalized HEP and perform 3-4xs/wk with min assist for modifications STG General No Xi Braun, INTERNET MARKETING COORDINATOR Note: Pt will participate in ongoing education re dysphagia s/p chemoradiation and techniques for symptom management STG General No Xi Braun, INTERNET MARKETING COORDINATOR Note: Pt will consume recommended diet textures and utilize swallow strategies given min verbal or visual cues documented as of this encounter Visit Diagnoses Not on filedocumented in this encounter Care Teams Embroidery Specialist Relationship Specialty Start Date End Date Leilani Veloz MD [address] [place] [address] PCP - General Internal Medicine 06/08/18 documented as of this encounter
--- OUTSIDE RECORDS SUMMARY | 2024-11-13 12:42 | XMS_ITS | Encounter Summary ---
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 He underwent a fiberoptic laryngoscopy on 11/30/2023 [...] a course of Diflucan x 7 days. Royal through the radiation course, he no longer [...] starting to take soups orally. 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 He is followed by our Locker Room Manager. He reports mild diarrhea since starting the Marcela Adku feeding. We discontinued weekly cisplatin following four weekly infusions due to renal failure. We planned to start weekly carboplatin. A platelet count on 02/28/2024 was 83,000. We delayed planned weekly carboplatin by 1 week. An ANC on 03/06/2024 was 1.0. A platelet count was 71,000. We delayed weekly carboplatin by another week. He had 2 syncopal episodes on 03/09/2024 who presented to the [facility] ER 03/10/2024. 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 He is . He has 2 [...] stage II T2N2 base of tongue cancer, [id number]. We will plan for chemoradiation with weekly [...] a course of Diflucan x 7 days. Royal through the radiation course, he no longer [...] to take soups orally. 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 He is followed by our Locker Room Manager. He reports mild diarrhea since starting the [...] episodes on 03/09/2024 who presented to the [facility] ER 03/10/2024. A chest CTA on [...] Info) Description 11/28/2024 1:30 PM EDT Appointment [facility] Infusion Center [address] [phone] 01/02/2025 9:30 AM EDT Office Visit [facility] Hematology Oncology [address] [place] [phone] Zechariah Meraz MD [address] [place] [address] 01/14/2025 10:30 AM EDT Appointment [facility] Radiation Oncology [address] [place] [address] No Charles NP [address] [place], [place] [phone] documented as of this encounter Goals Goal Patient Goal Type Associated Problems Recent Progress Patient-Stated? Author LTG Xi Morris, SUPERVISOR AREA Note: Pt will consume least restrictive PO diet without changes to medical or respiratory status to maintain adequate oral nutrition hydration [facility] Xi Morris, SUPERVISOR AREA Note: Pt will participate in development of personalized HEP and perform 3-4xs/wk with min assist for modifications [facility] Xi Morris, SUPERVISOR AREA Note: Pt will participate in ongoing education re dysphagia s/p chemoradiation and techniques for symptom management [facility] Xi Morris, SUPERVISOR AREA Note: Pt will consume recommended diet textures [...] reference lab test (04/30/2024) us Provider Onbase MD LAB BLOOD ORDERABLES Final Re sult documented in this encounter Visit Diagnoses Not on filedocumented in this encounter Care Teams Commercial Artist Relationship Specialty Start Date End Date Leilani Veloz MD [address] [facility] [address] [place] PCP - General Internal Medicine 06/08/18 documented as of this encounter
--- OUTSIDE RECORDS SUMMARY | 2024-11-13 12:42 | XMS_ITS | Encounter Summary ---
Author Organization [facility] Address [address] [place] [address] Care Team Providers Care Middleware Architect Name Role Phone Leilani Veloz MD Primary Care Provider [phone] Encounter Details Date Type Department Care Team [...] Appointment [facility] Infusion Center [address] [place] [phone] 01/02/2025 9:30 AM EDT Office Visit [facility] Hematology Oncology [address] [place] [phone] Zechariah Meraz MD [address] [place] [address] 01/14/2025 10:30 AM EDT Appointment [facility] Radiation Oncology [address] [place] [phone] No Charles NP [address] [place] [address] documented as of this encounter Goals Goal Patient Goal Type Associated Problems Recent Progress Patient-Stated? Author LTG Xi Morris, AGRICULTURAL PRODUCE SORTER Note: Pt will consume least restrictive PO diet without changes to medical or respiratory status to maintain adequate oral nutrition hydration [facility] Xi Morris, AGRICULTURAL PRODUCE SORTER Note: Pt will participate in development of personalized HEP and perform 3-4xs/wk with min assist for modifications [facility] Xi Morris, AGRICULTURAL PRODUCE SORTER Note: Pt will participate in ongoing education re dysphagia s/p chemoradiation and techniques for symptom management [facility] Xi Morris, AGRICULTURAL PRODUCE SORTER Note: Pt will consume recommended diet textures and utilize swallow strategies given min verbal or visual cues documented as of this encounter Visit Diagnoses Not on filedocumented in this encounter Care Teams Middleware Architect Relationship Specialty Start Date End Date Leilani Veloz MD [address] PCP - General Internal Medicine 06/08/18 documented as of this encounter
--- OUTSIDE RECORDS SUMMARY | 2024-11-13 12:42 | XMS_ITS | Encounter Summary ---
Author Organization [facility] Address [address] [place] [address] Care Team Providers Care Miter Sawyer Name Role Phone Leilani Veloz MD Primary Care Provider [phone] Encounter Details Date Type Department Care Team [...] EDT Appointment [facility] Infusion Center [address] [place] [phone] 01/02/2025 9:30 AM EDT Office Visit [facility] Hematology Oncology [address] [place] [phone] Zechariah Meraz MD [address] [place] [address] 01/14/2025 10:30 AM EDT Appointment [facility] Radiation Oncology [address] [place] [phone] No Charles NP [address] [place] [address] documented as of this encounter Goals Goal Patient Goal Type Associated Problems Recent Progress Patient-Stated? Author LTG Xi Morris, GARBAGE PICK UP WORKER Note: Pt will consume least restrictive PO diet without changes to medical or respiratory status to maintain adequate oral nutrition hydration [facility] Xi Morris, GARBAGE PICK UP WORKER Note: Pt will participate in development of personalized HEP and perform 3-4xs/wk with min assist for modifications [facility] Xi Morris, GARBAGE PICK UP WORKER Note: Pt will participate in ongoing education re dysphagia s/p chemoradiation and techniques for symptom management [facility] Xi Morris B, GARBAGE PICK UP WORKER Note: Pt will consume recommended diet textures and utilize swallow strategies given min verbal or visual cues documented as of this encounter Visit Diagnoses Not on filedocumented in this encounter Care Teams Miter Sawyer Relationship Specialty Start Date End Date Leilani Veloz MD [facility] [address] PCP - General Internal Medicine 06/08/18 documented as of this encounter
--- OUTSIDE RECORDS SUMMARY | 2024-11-13 12:42 | XMS_ITS | Clinical Summary ---
Author Organization [facility] Address [address] [place] [address] Care Team Providers Care Rest Room Maid Name Role Phone Leilani Veloz MD Primary Care Provider [phone] Allergies No known active allergies Medications Medication [...] 60 tablet 0 03/05/2024 Active nystatin (MYCOSTATIN) 641963 UNIT/ML suspension Take 5 mL (500,000 Units [...] age to complete this topic Care Teams Rest Room Maid Relationship Specialty Start Date End Date Leilani Veloz MD [address] [place] [phone] PCP - General Internal Medicine 12/25/23
--- OUTSIDE RECORDS SUMMARY | 2024-11-13 12:42 | XMS_ITS | Encounter Summary ---
Author Organization [facility] Address [address] [place] [address] Care Team Providers Care Senior Investigator Name Role Phone Leilani Veloz MD Primary Care Provider [phone] Encounter Details Date Type Department Care Team [...] and once labs result, will review with operations support analyst provider as Dr. Meraz is off.Pt made [...] EDT Appointment [facility] Infusion Center [address] [place] [phone] 01/02/2025 9:30 AM EDT Office Visit [facility] Hematology Oncology [address] [place] [phone] Zechariah Meraz MD [address] [place] [address] 01/14/2025 10:30 AM EDT Appointment [facility] Radiation Oncology [address] [place] [address] No Charles NP [address] [place], [place] [phone] documented as of this encounter Goals Goal Patient Goal Type Associated Problems Recent Progress Patient-Stated? Author LTG Xi Morris, INSTRUCTIONAL MATERIAL DIRECTOR Note: Pt will consume least restrictive PO diet without changes to medical or respiratory status to maintain adequate oral nutrition hydration [facility] Xi Morris, INSTRUCTIONAL MATERIAL DIRECTOR Note: Pt will participate in development of personalized HEP and perform 3-4xs/wk with min assist for modifications [facility] Xi Morris, INSTRUCTIONAL MATERIAL DIRECTOR Note: Pt will participate in ongoing education re dysphagia s/p chemoradiation and techniques for symptom management [facility] Xi Morris, INSTRUCTIONAL MATERIAL DIRECTOR Note: Pt will consume recommended diet textures and utilize swallow strategies given min verbal or visual cues documented as of this encounter Visit Diagnoses Not on filedocumented in this encounter Care Teams Senior Investigator Relationship Specialty Start Date End Date Leilani Veloz MD [address] [place] [address] PCP - General Internal Medicine 06/08/18 documented as of this encounter
--- OUTSIDE RECORDS SUMMARY | 2024-11-13 12:42 | XMS_ITS | Encounter Summary ---
Author Organization [facility] Address [address] [place] [address] Care Team Providers Care Director Of Corporate Marketing Name Role Phone eLilani Veloz MD Primary Care Provider [phone] Encounter Details Date Type Department Care Team [...] Info) Description 11/28/2024 1:30 PM EDT Appointment [facility] Infusion Center [address] [place] [phone] 01/02/2025 9:30 AM EDT Office Visit [facility] Hematology Oncology [address] [place] [phone] Zechariah Meraz MD [address] [place] [phone] 01/14/2025 10:30 AM EDT Appointment [facility] Radiation Oncology [address] [place] [phone] No Charles NP [address] [place] [address] documented as of this encounter Goals Goal Patient Goal Type Associated Problems Recent Progress Patient-Stated? Author LTG General No Xi Braun, IMAGING TECH Note: Pt will consume least restrictive PO diet without changes to medical or respiratory status to maintain adequate oral nutrition hydration [facility] General No Xi Braun, IMAGING TECH Note: Pt will participate in development of personalized HEP and perform 3-4xs/wk with min assist for modifications Xi Ireland, IMAGING TECH Note: Pt will participate in ongoing education re dysphagia s/p chemoradiation and techniques for symptom management Xi Ireland, IMAGING TECH Note: Pt will consume recommended diet textures and utilize swallow strategies given min verbal or visual cues documented as of this encounter Visit Diagnoses Not on filedocumented in this encounter Care Teams Director Of Corporate Marketing Relationship Specialty Start Date End Date Leilani Veloz MD [address] PCP - General Internal Medicine 06/08/18 documented as of this encounter
--- OUTSIDE RECORDS SUMMARY | 2024-11-13 12:43 | XMS_ITS | Encounter Summary ---
Author Organization [facility] Address [address] [place] [address] Care Team Providers Care Ancillary Services Manager Therapy Name Role Phone Leilani Veloz MD Primary Care Provider [phone] Encounter Details Date Type Department Care Team [...] Info) Description 11/28/2024 1:30 PM EDT Appointment [facility] [address] [place] [phone] 01/02/2025 9:30 AM EDT Office Visit [facility] Hematology Oncology [address] [place] [phone] Zechariah Meraz MD 271 [place] [phone] 01/14/2025 10:30 AM EDT Appointment [facility] Radiation Oncology [address] [place] [phone] No Charles NP 271 [place] [address] documented as of this encounter Goals Goal Patient Goal Type Associated Problems Recent Progress Patient-Stated? Author LTG Xi Morris, JOURNEYMAN MILLWRIGHT Note: Pt will consume least restrictive PO diet without changes to medical or respiratory status to maintain adequate oral nutrition hydration STG Xi Morris, JOURNEYMAN MILLWRIGHT Note: Pt will participate in development of personalized HEP and perform 3-4xs/wk with min assist for modifications Xi Ireland, JOURNEYMAN MILLWRIGHT Note: Pt will participate in ongoing education re dysphagia s/p chemoradiation and techniques for symptom management Xi Ireland, JOURNEYMAN MILLWRIGHT Note: Pt will consume recommended diet textures and utilize swallow strategies given min verbal or visual cues documented as of this encounter Visit Diagnoses Not on filedocumented in this encounter Care Teams Ancillary Services Manager Therapy Relationship Specialty Start Date End Date Leilani Veloz MD [address] [place] [address] PCP - General Internal Medicine 06/08/18 documented as of this encounter
--- OUTSIDE RECORDS SUMMARY | 2024-11-13 12:43 | XMS_ITS ---
Author Organization [facility] Address [address] [facility] [place] [address] Care Team Providers Care Fire Tender Name Role Phone Chaddsemaj Leilani Primary Care Provider Unavailab Otto Castelan Unavailable [phone] REASON FOR VISIT cx 02/04 appt Encounters Encounter Location Date Provider Diagnosis [address] [address] 01/29/2024 Otto Suh Plan Of Treatment No Information Progress Notes * LUTHERDonovan COURTNEYDOB:[birth year] (58 yo M)Acc No.[id number]:01/29/2024 Patient:?Donovan Ortiz :1965???Age:58 Y???Sex:Male Address:[address] [place] [address] * true * Date:? Generated for Shay dillard/Melissa/eTransmitting on:?11/13/2024 12:42 PM EDT
--- OUTSIDE RECORDS SUMMARY | 2024-11-13 12:43 | XMS_ITS | Encounter Summary ---
Author Organization [facility] Address [address] [place] [address] Care Team Providers Care Ethics Manager Name Role Phone Leilani Veloz MD Primary Care Provider [phone] Encounter Details Date Type Department Care Team [...] swallow medications so he purchased a pill medical staff assistant and will start crushing his pills at [...] Appointment [facility] [address] [address] 01/02/2025 9:30 AM EDT Office Visit [facility] Hematology Oncology [address] [place] [phone] Zechariah Meraz MD 271 [place] [address] 01/14/2025 10:30 AM EDT Appointment [facility] Radiation Oncology [address] [place] [phone] No Charles NP 271 [place] [address] documented as of this encounter Goals Goal Patient Goal Type Associated Problems Recent Progress Patient-Stated? Author LTXi Ramirez, CARGO WORKER Note: Pt will consume least restrictive PO diet without changes to medical or respiratory status to maintain adequate oral nutrition hydration [facility] Xi Morris, CARGO WORKER Note: Pt will participate in development of personalized HEP and perform 3-4xs/wk with min assist for modifications Xi Ireland, CARGO WORKER Note: Pt will participate in ongoing education re dysphagia s/p chemoradiation and techniques for symptom management [facility] Xi Morris, CARGO WORKER Note: Pt will consume recommended diet [...] tongue documented in this encounter Care Teams Ethics Manager Relationship Specialty Start Date End Date Leilani Veloz MD [address] [facility] [address] [place], [place] PCP - General Internal Medicine 06/08/18 documented as of this encounter
--- OUTSIDE RECORDS SUMMARY | 2024-11-13 12:43 | XMS_ITS ---
[facility] [place] Address [address] [place] [address] Care Team Providers Care Sewer And Drain Technician Name Role Phone Chaddsemaj Leilani Primary Care Provider Unavailab Otto Castelan Unavailable [phone] Allergies No Known Allergies REASON FOR VISIT [...] day(s) Active Nasal Allergy PRN Active Lisinopril-hydroCHLOROthiaz sloaen 20-25 MG 1 tablet Orally Once a [...] 11/06/2023 Encounters Encounter Location Date Provider Diagnosis [facility] [address] [facility] [address] [place] [address] 11/06/2023 Otto Suh Fungal infection of nail [...] * SOTERODonovan HOOKERDOB:[birth year] (58 yo M)Acc No.[id number]:11/06/2023 Progress Note Patient:?Donovan Ortiz Provider:?Otto Suh DPM :1965???Age:58 Y???Sex:Male Keven e:11/06/2023 Address:[address] [place], [place] [phone] Pcp:Leilani Veloz Subjective: * Chief Complaints: * [...] hiking, walking. ?Marital status: single. 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 * Medications:?TakingNasal All ergy , Notes: PRNLisinopril-hydroCHLOROthiazide [...] Suh DPM Date:?2023 Generated for Shay dillard/Melissa/Marissa on:?11/13/2024 12:42 PM EDT History and Physical Notes * HPI [...]
--- OUTSIDE RECORDS SUMMARY | 2024-11-13 12:43 | XMS_ITS | Encounter Summary ---
Author Organization [facility] Address [address] [place] [address] Care Team Providers Care Combat Systems Operator Mine Warfare Name Role Phone Leilani Veloz MD Primary Care Provider [phone] Encounter Details Date Type Department Care Team [...] Description 11/28/2024 1:30 PM EDT Appointment [facility] [address] [address] 01/02/2025 9:30 AM EDT Office Visit [facility] Hematology Oncology [address] [place] [phone] Zechariah Meraz MD 271 [place] [phone] 01/14/2025 10:30 AM EDT Appointment [facility] Radiation Oncology [address] [place] [phone] No Charles NP 271 [place] [address] documented as of this encounter Goals Goal Patient Goal Type Associated Problems Recent Progress Patient-Stated? Author LTXi Ramirez, ACCORDION REPAIRER Note: Pt will consume least restrictive PO diet without changes to medical or respiratory status to maintain adequate oral nutrition hydration STG Xi Morris, ACCORDION REPAIRER Note: Pt will participate in development of personalized HEP and perform 3-4xs/wk with min assist for modifications STG Xi Morris, ACCORDION REPAIRER Note: Pt will participate in ongoing education re dysphagia s/p chemoradiation and techniques for symptom management STG Xi Morris, ACCORDION REPAIRER Note: Pt will consume recommended diet textures and utilize swallow strategies given min verbal or visual cues documented as of this encounter Visit Diagnoses Not on filedocumented in this encounter Care Teams Combat Systems Operator Mine Warfare Relationship Specialty Start Date End Date Leilani Veloz MD [address] [facility] [address] [place], [place] PCP - General Internal Medicine 06/08/18 documented as of this encounter
--- OUTSIDE RECORDS SUMMARY | 2024-11-13 12:43 | XMS_ITS | Encounter Summary ---
Author Organization [facility] Address [address] [place] [address] Care Team Providers Care Aircraft Load Controller Name Role Phone Leilani Veloz MD Primary Care Provider [phone] Encounter Details Date Type Department Care Team Description 01/17/2024 Social Work [facility] Oncology Services 271 [place] [address] Miguel Guillen, [facility] Social History Tobacco Use Types [...] filedocumented in this encounter Care Teams Aircraft Load Controller Relationship Specialty Start Date End Date Leilani Veloz MD [facility] [address] [phone] PCP - General Internal Medicine 12/25/23 documented as of this encounter
--- OUTSIDE RECORDS SUMMARY | 2024-11-13 12:43 | XMS_ITS | Encounter Summary ---
Author Organization [facility] Address [address] [place] [address] Care Team Providers Care Pipe Coverer Name Role Phone Leilani Veloz MD Primary Care Provider [phone] Encounter Details Date Type Department Care Team [...] originally was scheduled for chemotherapy. Unfortunately, pt ballistician continues to elevate and plts are also [...] time. Call conklin in reach. 1100- Pita, extension service agent and Xi, COOK FRY came to chairside assisting pt with feeds [...] Appointment [facility] [address] [phone] 01/02/2025 9:30 AM EDT Office Visit [facility] Hematology Oncology [address] [place] [phone] Zechariah Meraz MD 271 [place] [phone] 01/14/2025 10:30 AM EDT Appointment [facility] Radiation Oncology [address] [place] [address] No Charles NP 271 [place] [address] documented as of this encounter Goals Goal Patient Goal Type Associated Problems Recent Progress Patient-Stated? Author LTG Xi Morris, COOK FRY Note: Pt will consume least restrictive PO diet without changes to medical or respiratory status to maintain adequate oral nutrition hydration [facility] Xi Morris, COOK FRY Note: Pt will participate in development of personalized HEP and perform 3-4xs/wk with min assist for modifications Xi Ireland, COOK FRY Note: Pt will participate in ongoing education re dysphagia s/p chemoradiation and techniques for symptom management [facility] Xi Morris, COOK FRY Note: Pt will consume recommended diet textures and utilize swallow strategies given min verbal or visual cues documented as of this encounter Visit Diagnoses Not on filedocumented in this encounter Care Teams Pipe Coverer Relationship Specialty Start Date End Date Leilani Veloz MD 12[address] [facility] 216 [place], [place] PCP - General Internal Medicine 06/08/18 documented as of this encounter
--- OUTSIDE RECORDS SUMMARY | 2024-11-13 12:43 | XMS_ITS | Encounter Summary ---
Author Organization [facility] Address [address] [place] [address] Care Team Providers Care Motivational Speaker Name Role Phone Leilani Veloz MD Primary Care Provider [phone] Encounter Details Date Type Department Care Team Description 02/08/[address] [facility] Oncology Services 271 [place] [address] Miguel Guillen, [facility] Social History Tobacco Use Types Packs/Day Years [...] on filedocumented in this encounter Care Teams Motivational Speaker Relationship Specialty Start Date End Date Leilani Veloz MD [facility] [address] [address] PCP - General Internal Medicine 12/25/23 documented as of this encounter
--- OUTSIDE RECORDS SUMMARY | 2024-11-13 12:43 | XMS_ITS | Encounter Summary ---
Author Organization [facility] Address [address] [place] [address] Care Team Providers Care Corporate Lawyer Name Role Phone Leilani Veloz MD Primary Care Provider [phone] Encounter Details Date Type Department Care Team [...] Info) Description 11/28/2024 1:30 PM EDT Appointment [facility] [address] [place] [phone] 01/02/2025 9:30 AM EDT Office Visit [facility] Hematology Oncology [address] [place] [phone] Zechariah Meraz MD 271 [place] [address] 01/14/2025 10:30 AM EDT Appointment [facility] Radiation Oncology [address] [place] [phone] No Charles NP 271 [place] [address] documented as of this encounter Goals Goal Patient Goal Type Associated Problems Recent Progress Patient-Stated? Author LTG General Xi Devlin, ADOPTION AGENT Note: Pt will consume least restrictive PO diet without changes to medical or respiratory status to maintain adequate oral nutrition hydration STG Xi Morris, ADOPTION AGENT Note: Pt will participate in development of personalized HEP and perform 3-4xs/wk with min assist for modifications STG Xi Morris, ADOPTION AGENT Note: Pt will participate in ongoing education re dysphagia s/p chemoradiation and techniques for symptom management STG General No Xi Braun, ADOPTION AGENT Note: Pt will consume recommended diet textures and utilize swallow strategies given min verbal or visual cues documented as of this encounter Visit Diagnoses Not on filedocumented in this encounter Care Teams Corporate Lawyer Relationship Specialty Start Date End Date Leilani Veloz MD [facility] [address] PCP - General Internal Medicine 06/08/18 documented as of this encounter
--- OUTSIDE RECORDS SUMMARY | 2024-11-13 12:43 | XMS_ITS ---
Author Organization [facility] Address [address] [facility] [place] [address] Care Team Providers Care Tube Bender Hand Name Role Phone Leilani Veloz Primary Care Provider Unavailab Otto Castelan Unavailable [phone] Encounters Encounter Location Date Provider Diagnosis [facility] [address] [address] 02/05/2024 Otto Suh Plan Of Treatment No Information Progress Notes * Donovan VACADOB:[birth year] (59 yo M)Acc No.[id number]:02/05/2024 Progress Note Patient:Donovan COYLE Provider:?Otto Suh DPM :1965???Age:58 Y???Sex:Male Keven e:02/05/2024 Address:[address] [place], [place] [phone] Pcp:Leilani Veloz Subjective: * Chief Complaints: * [...] Provider:?Otto Suh DPM Date:?2023 Generated for Shay dillard/Melissa/Hugosmitting on:?11/13/2024 12:42 PM EDT
--- OUTSIDE RECORDS SUMMARY | 2024-11-13 12:43 | XMS_ITS | Encounter Summary ---
Author Organization [facility] Address [address] [place] [address] Care Team Providers Care Car Rental Manager Name Role Phone Leilani Veloz MD Primary Care Provider [phone] Encounter Details Date Type Department Care Team [...] Description 11/28/2024 1:30 PM EDT Appointment [facility] [address] [place] [phone] 01/02/2025 9:30 AM EDT Office Visit [facility] Hematology Oncology [address] [place] [phone] Zechariah Meraz MD 271 [place] [address] 01/14/2025 10:30 AM EDT Appointment [facility] Radiation Oncology [address] [place] [phone] No Charles NP 271 [place] [address] documented as of this encounter Goals Goal Patient Goal Type Associated Problems Recent Progress Patient-Stated? Author LTXi Ramirez, CONSTRUCTION CARPENTERS HELPER Note: Pt will consume least restrictive PO diet without changes to medical or respiratory status to maintain adequate oral nutrition hydration [facility] Xi Morris, CONSTRUCTION CARPENTERS HELPER Note: Pt will participate in development of personalized HEP and perform 3-4xs/wk with min assist for modifications [facility] Xi Morris, CONSTRUCTION CARPENTERS HELPER Note: Pt will participate in ongoing education re dysphagia s/p chemoradiation and techniques for symptom management [facility] Xi Morris, CONSTRUCTION CARPENTERS HELPER Note: Pt will consume recommended diet textures and utilize swallow strategies given min verbal or visual cues documented as of this encounter Visit Diagnoses Diagnosis Malignant neoplasm of base of tongue (CMS/HCC V24, CMS/HCC V28) Malignant neoplasm of base of tongue documented in this encounter Care Teams Car Rental Manager Relationship Specialty Start Date End Date Leilani Veloz MD [facility] [address] PCP - General Internal Medicine 06/08/18 documented as of this encounter
--- OUTSIDE RECORDS SUMMARY | 2024-11-13 12:43 | XMS_ITS | Clinical Summary ---
Author Organization [facility] Address [address] [place] [address] Phone Care Team Providers Care Manager Project Management Name Role Phone Leilani Veloz MD Primary Care Provider [phone] Allergies No known active allergies Medications atorvastatin [...] Malignant neoplasm of base o f tongue ([facility] V24, [facility] V28) 12/28/2023 Cancer Staging:Clinical stage from 11/22/2023:Stage II(cT2, cN2, cM0, p16+) - Signed by Chris Benitez MD on 05/21/2024 Pulmonary embolism ([facility] V24, [facility] V28) Encounters Date Type Department Care Team Description 10/09/2024 9:18 AM EDT - 10/09/2024 11:59 PM EDT Hospital Encounter [facility] 271 [facility] [address] [place] [address] Zechariah Meraz MD Malignant neoplasm of base of tongue ([facility] V24, [facility] V28) (Primary Dx) Discharge Disposition: Home or Self Care 10/02/2024 9:45 AM EDT Office Visit [facility] Hematology Oncology [address] [place] [phone] Zechariah Meraz MD Malignant neoplasm of base of tongue ([facility] V24, [facility] V28) (Primary Dx) 08/27/2024 9:54 AM EST - 08/27/2024 11:59 PM EST Hospital Encounter [facility] [address] [place] [phone] Zechariah Meraz MD Malignant neoplasm of base of tongue ([facility] V24, [facility] V28) (Primary Dx) Discharge Disposition: Home or Self Care 08/22/2024 Telephone [facility] Rad[facility] On[facility] [address] [place] [phone] Angelica Cui, SERGEI Med Refill from [...] Medical History Date Comments Hypertension DX:Hypertension Stroke ([facility] V24, [facility] V28) DX:Stroke (HCC) Pulmonary embolism ([facility] V24, [facility] V28) DVT (deep venous thrombosis[facility] ([facility] V24, [facility] V28) Family History Medical History Relation [...] Appointment [facility] [address] [address] 01/02/2025 9:30 AM EDT Office Visit [facility] Hematology Oncology [address] [place] [address] Zechariah Meraz MD 271 [place] [address] 01/14/2025 10:30 AM EDT Appointment [facility] Radiation Oncology 271 [place] [address] No Charles NP 271 [place], [place] [phone] Health Maintenance Due Date Last Done Comments [...] Problems Recent Progress Patient-Stated? Author LTXi Ramirez, SLD TEACHER Note: Pt will consume least restrictive PO diet without changes to medical or respiratory status to maintain adequate oral nutrition hydration [facility] Xi Morris, SLD TEACHER Note: Pt will participate in development of personalized HEP and perform 3-4xs/wk with min assist for modifications Xi Ireland, SLD TEACHER Note: Pt will participate in ongoing education re dysphagia s/p chemoradiation and techniques for symptom management [facility] Xi Morris, SLD TEACHER Note: Pt will consume recommended diet [...] LAB CHEMISTRY METHOD 06/19/2024 3:24 PM EST [facility] Triglycerides 48 0 - 150 mg/dL LAB CHEMISTRY METHOD 06/19/2024 3:24 PM EST [facility] HDL 52 >=40 mg/dL LAB CHEMISTRY METHOD 06/19/2024 3:24 PM EST [facility] LDL Calculated 36 0 - 100 mg/dL LAB CHEMISTRY METHOD 06/19/2024 3:24 PM EST [facility] VLDL Cholesterol Juan Daniel 9.6 mg/dL LAB CHEMISTRY METHOD 06/19/2024 3:24 PM EST [facility] Non HDL Chol. (LDL+VLDL) 46 <145 mg/dL LAB CHEMISTRY METHOD 06/19/2024 3:24 PM EST [facility] Chol/HDL Ratio 1.9 0.0 - 4.4 LAB CHEMISTRY METHOD 06/19/2024 3:24 PM EST [facility] Blood Venous blood specimen / Unknown Venipuncture / Unknown 06/19/2024 9:54 AM EST 06/19/2024 9:54 AM EST us Leilani Veloz MD LAB BLOOD ORDERABLES Final Re sult [facility] [address] [place] [address], [place] [phone] * (ABNORMAL) Comprehensive metabolic panel (06/19/2024 9:54 AM EST) Sodium 145 133 - 145 mmol/L LAB CHEMISTRY METHOD 06/19/2024 3:09 PM [facility] Potassium 4.3 3.5 - 5.5 mmol/L LAB CHEMISTRY METHOD 06/19/2024 3:09 PM [facility] Chloride 111(H) 96 - 110 mmol/L LAB CHEMISTRY METHOD 06/19/2024 3:09 PM [facility] CO2 29 21 - 32 mmol/L LAB CHEMISTRY METHOD 06/19/2024 3:09 PM [facility] Anion Gap 5 3 - 11 LAB CHEMISTRY METHOD 06/19/2024 3:09 PM [facility] Glucose 89 70 - 100 mg/dL LAB CHEMISTRY METHOD 06/19/2024 3:09 PM [facility] BUN 10 5 - 25 mg/dL LAB CHEMISTRY METHOD 06/19/2024 3:09 PM [facility] Creatinine 0.68(L) 0.70 - 1.30 mg/dL LAB CHEMISTRY METHOD 06/19/2024 3:09 PM [facility] eGFR 107 >=60 mL/min/1. 73m2 LAB CHEMISTRY METHOD 06/19/2024 3:09 PM [facility] Comment:Calculation based on the??Chronic Kidney Disease Epidemiology Collaboration (CKD-EPI) equation refit??without adjustment for race. BUN/Creatinine Ratio 14.7 LAB CHEMISTRY METHOD 06/19/2024 3:09 PM [facility] Calcium 9.1 8.5 - 10.5 mg/dL LAB CHEMISTRY METHOD 06/19/2024 3:09 PM [facility] AST (SGOT) 24 10 - 42 unit/L LAB CHEMISTRY METHOD 06/19/2024 3:09 PM [facility] ALT (SGPT) 34 10 - 60 unit/L LAB CHEMISTRY METHOD 06/19/2024 3:09 PM EST [facility] Alkaline Phosphatase 59 42 - 121 unit/L LAB CHEMISTRY METHOD 06/19/2024 3:09 PM [facility] Total Protein 5.7(L) 6.0 - 8.0 g/dL LAB CHEMISTRY METHOD 06/19/2024 3:09 PM [facility] Albumin 3.3 3.2 - 5.0 g/dL LAB CHEMISTRY METHOD 06/19/2024 3:09 PM [facility] Total Bilirubin 0.5 0.0 - 1.4 mg/dL LAB CHEMISTRY METHOD 06/19/2024 3:09 PM [facility] Blood Venous blood specimen / Unknown Venipuncture / Unknown 06/19/2024 9:54 AM EST 06/19/2024 9:54 AM EST Leilani Veloz MD LAB BLOOD ORDERABLES Final Re sult [facility] [address] [place] [address], from Last 3 Months or Most Recently Relevant to Health Maintenance Insurance [facility] Care Teams Manager Project Management Relationship Specialty Start Date End Date Leilani Veloz MD [facility] [address] PCP - General Internal Medicine 06/08/18
--- OUTSIDE RECORDS SUMMARY | 2024-11-13 12:43 | XMS_ITS | Encounter Summary ---
Author Organization [facility] Address [address] [place] [address] Care Team Providers Care Handhole Machine Operator Name Role Phone Leilani Veloz MD Primary Care Provider [phone] Encounter Details Date Type Department Care Team [...] unit after RT. Labs resulted and WNL. [employer] improved to 1.02. Pre hydration initiated and [...] about 600ml water. Pt had a full PhytoCeutica drink via g-tube as well as 240ml [...] Info) Description 11/28/2024 1:30 PM EDT Appointment [facility] Infusion Center [address] [phone] 01/02/2025 9:30 AM EDT Office Visit [facility] Hematology Oncology [address] [place] [phone] Zechariah Meraz MD [address] [place] [phone] 01/14/2025 10:30 AM EDT Appointment [facility] Radiation Oncology [address] [place] [phone] No Charles, JANES [address] [place] [address] documented as of this encounter Goals Goal Patient Goal Type Associated Problems Recent Progress Patient-Stated? Author LTG Xi Morris, LOAN SECRETARY Note: Pt will consume least restrictive PO diet without changes to medical or respiratory status to maintain adequate oral nutrition hydration Xi Ireland, LOAN SECRETARY Note: Pt will participate in development of personalized HEP and perform 3-4xs/wk with min assist for modifications Xi Ireland, LOAN SECRETARY Note: Pt will participate in ongoing education re dysphagia s/p chemoradiation and techniques for symptom management [facility] Xi Morris, LOAN SECRETARY Note: Pt will consume recommended diet textures and utilize swallow strategies given min verbal or visual cues documented as of this encounter Visit Diagnoses Not on filedocumented in this encounter Care Teams Handhole Machine Operator Relationship Specialty Start Date End Date Leilani Veloz MD [address] PCP - General Internal Medicine 06/08/18 documented as of this encounter
--- OUTSIDE RECORDS SUMMARY | 2024-11-13 12:43 | XMS_ITS | Encounter Summary ---
Author Organization [facility] Address [address] [place] [address] Care Team Providers Care Lead Consultant Name Role Phone Leilani Veloz MD Primary Care Provider [phone] Encounter Details Date Type Department Care Team [...] Info) Description 11/28/2024 1:30 PM EDT Appointment [facility] Infusion Center [address] [place] [phone] 01/02/2025 9:30 AM EDT Office Visit [facility] Hematology Oncology [address] [place] [phone] Zechariah Meraz MD [address] [place] [address] 01/14/2025 10:30 AM EDT Appointment [facility] Radiation Oncology [address] [place] [phone] No Charles NP [address] [place] [address] documented as of this encounter Goals Goal Patient Goal Type Associated Problems Recent Progress Patient-Stated? Author LTG General No Xi Braun, TUMBLING INSTRUCTOR Note: Pt will consume least restrictive PO diet without changes to medical or respiratory status to maintain adequate oral nutrition hydration [facility] General No Xi Braun, TUMBLING INSTRUCTOR Note: Pt will participate in development of personalized HEP and perform 3-4xs/wk with min assist for modifications STG General No Xi Braun, TUMBLING INSTRUCTOR Note: Pt will participate in ongoing education re dysphagia s/p chemoradiation and techniques for symptom management [facility] General No Xi Braun, TUMBLING INSTRUCTOR Note: Pt will consume recommended diet textures and utilize swallow strategies given min verbal or visual cues documented as of this encounter Visit Diagnoses Not on filedocumented in this encounter Care Teams Lead Consultant Relationship Specialty Start Date End Date Leilani Veloz MD [address] [place] [address] PCP - General Internal Medicine 06/08/18 documented as of this encounter
--- OUTSIDE RECORDS SUMMARY | 2024-11-13 12:43 | XMS_ITS | Encounter Summary ---
Author Organization [facility] Address [address] [place] [address] Care Team Providers Care Services Manager Name Role Phone Leilani Veloz MD Primary Care Provider [phone] Encounter Details Date Type Department Care Team [...] Description 11/28/2024 1:30 PM EDT Appointment [facility] Infusion Center [address] [place] [phone] 01/02/2025 9:30 AM EDT Office Visit [facility] Hematology Oncology [address] [place] [phone] Zechariah Meraz MD [address] [place] [phone] 01/14/2025 10:30 AM EDT Appointment [facility] Radiation Oncology [address] [place] [phone] No Charles NP [address] [place] [address] documented as of this encounter Goals Goal Patient Goal Type Associated Problems Recent Progress Patient-Stated? Author LTG General No Xi Braun, TELEVISION NEWS PHOTOGRAPHER Note: Pt will consume least restrictive PO diet without changes to medical or respiratory status to maintain adequate oral nutrition hydration STG General No Xi Braun, TELEVISION NEWS PHOTOGRAPHER Note: Pt will participate in development of personalized HEP and perform 3-4xs/wk with min assist for modifications Xi Ireland, TELEVISION NEWS PHOTOGRAPHER Note: Pt will participate in ongoing education re dysphagia s/p chemoradiation and techniques for symptom management Xi Ireland, TELEVISION NEWS PHOTOGRAPHER Note: Pt will consume recommended diet textures and utilize swallow strategies given min verbal or visual cues documented as of this encounter Visit Diagnoses Not on filedocumented in this encounter Care Teams Services Manager Relationship Specialty Start Date End Date Leilani Veloz MD [facility] [address] PCP - General Internal Medicine 06/08/18 documented as of this encounter
== END 2024-11-12 11:15 | disposition home or self-care (01) ==
LOC: HO.HOSX 11:14
PROVIDERS: Visit Provider Orthopaedic Surgery
DX: M79.642 Pain in left hand (principal)
CPT/HCPCS: 73130

== ENCOUNTER 2024-11-27 09:22 | Day surgery (SDC) | payer BC, SELFPAY ==
--- OUTSIDE RECORDS SUMMARY | 2024-11-12 13:37 | XMS_ITS | Encounter Summary ---
Author Organization [facility] Address [address] [place] [address] Care Team Providers Care Prep Person Name Role Phone Leilani Veloz MD Primary Care Provider [phone] Encounter Details Date Type Department Care Team [...] Care Team (Late st Contact Info) Description 11/28/2024 1:30 PM EDT Appointment [facility] [address] [place] [phone] 01/02/2025 9:30 AM EDT Office Visit [facility] Hematology Oncology [address] [place] [phone] Zechariah Meraz MD [address] [place] [address] 01/14/2025 10:30 AM EDT Appointment [facility] Radiation Oncology [address] [place] [phone] No Charles NP [address] [place] [address] documented as of this encounter Goals Goal Patient Goal Type Associated Problems Recent Progress Patient-Stated? Author LTG Xi Morris, PRINCIPAL SOLUTIONS ARCHITECT Note: Pt will consume least restrictive PO diet without changes to medical or respiratory status to maintain adequate oral nutrition hydration STG Xi Morris, PRINCIPAL SOLUTIONS ARCHITECT Note: Pt will participate in development of personalized HEP and perform 3-4xs/wk with min assist for modifications STG Xi Morris, PRINCIPAL SOLUTIONS ARCHITECT Note: Pt will participate in ongoing education re dysphagia s/p chemoradiation and techniques for symptom management STG Vick oMrrisison B, PRINCIPAL SOLUTIONS ARCHITECT Note: Pt will consume recommended diet textures and utilize swallow strategies given min verbal or visual cues documented as of this encounter Visit Diagnoses Not on filedocumented in this encounter Care Teams Prep Person Relationship Specialty Start Date End Date Leilani Veloz MD [facility] [address] PCP - General Internal Medicine 06/08/18 documented as of this encounter
--- OUTSIDE RECORDS SUMMARY | 2024-11-12 13:37 | XMS_ITS | Encounter Summary ---
Author Organization [facility] Address [address] [place] [address] Care Team Providers Care Pourer Off Name Role Phone Leilani Veloz MD Primary Care Provider [phone] Encounter Details Date Type Department Care Team [...] Info) Description 11/28/2024 1:30 PM EDT Appointment [facility] [address] [phone] 01/02/2025 9:30 AM EDT Office Visit [facility] Hematology Oncology [address] [place] [phone] Zechariah Meraz MD [address] [place] [phone] 01/14/2025 10:30 AM EDT Appointment [facility] Radiation Oncology [address] [place] [phone] No Charles NP [address] [place], [place] [phone] documented as of this encounter Goals Goal Patient Goal Type Associated Problems Recent Progress Patient-Stated? Author Xi Mulligan, MILL TENDER WASHING Note: Pt will consume least restrictive PO diet without changes to medical or respiratory status to maintain adequate oral nutrition hydration STG Xi Morris, MILL TENDER WASHING Note: Pt will participate in development of personalized HEP and perform 3-4xs/wk with min assist for modifications STG Xi Morris, MILL TENDER WASHING Note: Pt will participate in ongoing education re dysphagia s/p chemoradiation and techniques for symptom management STG Xi Morris, MILL TENDER WASHING Note: Pt will consume recommended diet textures and utilize swallow strategies given min verbal or visual cues documented as of this encounter Visit Diagnoses Not on filedocumented in this encounter Care Teams Pourer Off Relationship Specialty Start Date End Date Leilani Veloz MD [facility] [address] [place], [place] PCP - General Internal Medicine 06/08/18 documented as of this encounter
--- OUTSIDE RECORDS SUMMARY | 2024-11-12 13:37 | XMS_ITS | Encounter Summary ---
Author Organization [facility] Address [address] [place] [address] Care Team Providers Care Wheel Molder Name Role Phone Leilani Veloz MD Primary Care Provider [phone] Encounter Details Date Type Department Care Team [...] Info) Description 11/28/2024 1:30 PM EDT Appointment [facility] Infusion Center [address] [place] [phone] 01/02/2025 9:30 AM EDT Office Visit [facility] Hematology Oncology [address] [place] [phone] Zechariah Meraz MD [address] [place] [address] 01/14/2025 10:30 AM EDT Appointment [facility] Radiation Oncology [address] [place] [phone] No Charles NP [address] [place] [address] documented as of this encounter Goals Goal Patient Goal Type Associated Problems Recent Progress Patient-Stated? Author LTG General No Xi Braun, PAPER PRODUCTS INSPECTOR Note: Pt will consume least restrictive PO diet without changes to medical or respiratory status to maintain adequate oral nutrition hydration STG General No Xi Braun, PAPER PRODUCTS INSPECTOR Note: Pt will participate in development of personalized HEP and perform 3-4xs/wk with min assist for modifications STG Xi Morris, PAPER PRODUCTS INSPECTOR Note: Pt will participate in ongoing education re dysphagia s/p chemoradiation and techniques for symptom management Xi Ireland, PAPER PRODUCTS INSPECTOR Note: Pt will consume recommended diet textures and utilize swallow strategies given min verbal or visual cues documented as of this encounter Visit Diagnoses Not on filedocumented in this encounter Care Teams Wheel Molder Relationship Specialty Start Date End Date Leilani Veloz MD [facility] [address] PCP - General Internal Medicine 06/08/18 documented as of this encounter
--- OUTSIDE RECORDS SUMMARY | 2024-11-12 13:37 | XMS_ITS | Encounter Summary ---
Author Organization [facility] Address [address] [place] [address] Care Team Providers Care Manager Of Data Name Role Phone Leilani Veloz MD Primary Care Provider [phone] Encounter Details Date Type Department Care Team [...] prefers morphine script be sent to the [facility] in the [facility]. This RN notified Dr. Meraz. No further questions. Next appts in place and reviewed. Port flushed/deaccessed per protocol. Pt left unit, stable at D/C. documented in this encounter Plan of Treatment Upcoming Encounters Date Type Department Care Team (Late st Contact Info) Description 11/28/2024 1:30 PM EDT Appointment [facility] In[facility] [address] [place] [phone] 01/02/2025 9:30 AM EDT Office Visit [facility] Hematology Oncology [address] [place] [phone] Zechariah Meraz MD [address] [place] [address] 01/14/2025 10:30 AM EDT Appointment [facility] Radiation Oncology [address] [place] [phone] No Charles NP [address] [place] [address] documented as of this encounter Goals Goal Patient Goal Type Associated Problems Recent Progress Patient-Stated? Author LTLaura General No Xi Braun, SALES REPRESENTATIVE ADDING MACHINES Note: Pt will consume least restrictive PO diet without changes to medical or respiratory status to maintain adequate oral nutrition hydration STG General No Aparna, Xi B, SALES REPRESENTATIVE ADDING MACHINES Note: Pt will participate in development of personalized HEP and perform 3-4xs/wk with min assist for modifications Xi Ireland, SALES REPRESENTATIVE ADDING MACHINES Note: Pt will participate in ongoing education re dysphagia s/p chemoradiation and techniques for symptom management Xi Ireland, SALES REPRESENTATIVE ADDING MACHINES Note: Pt will consume recommended diet textures and utilize swallow strategies given min verbal or visual cues documented as of this encounter Visit Diagnoses Not on filedocumented in this encounter Care Teams Manager Of Data Relationship Specialty Start Date End Date Leilani Veloz MD [address] [facility] [address] [place], [place] PCP - General Internal Medicine 06/08/18 documented as of this encounter
--- OUTSIDE RECORDS SUMMARY | 2024-11-12 13:37 | XMS_ITS | Encounter Summary ---
Author Organization [facility] Address [address] [place] [address] Care Team Providers Care Gang Rider Name Role Phone Leilani Veloz MD Primary Care Provider [phone] Encounter Details Date Type Department Care Team [...] Info) Description 11/28/2024 1:30 PM EDT Appointment [facility] Infusion Center [address] [place] [phone] 01/02/2025 9:30 AM EDT Office Visit [facility] Hematology Oncology [address] [place] [phone] Zechariah Meraz MD [address] [place] [address] 01/14/2025 10:30 AM EDT Appointment [facility] Radiation Oncology [address] [phone] No Charles NP [address] [place] [address] documented as of this encounter Goals Goal Patient Goal Type Associated Problems Recent Progress Patient-Stated? Author LTXi Ramirez, JET DYEING MACHINE TENDER Note: Pt will consume least restrictive PO diet without changes to medical or respiratory status to maintain adequate oral nutrition hydration STG Xi Morris, JET DYEING MACHINE TENDER Note: Pt will participate in development of personalized HEP and perform 3-4xs/wk with min assist for modifications Xi Ireland, JET DYEING MACHINE TENDER Note: Pt will participate in ongoing education re dysphagia s/p chemoradiation and techniques for symptom management STG Xi Morris, JET DYEING MACHINE TENDER Note: Pt will consume recommended diet textures and utilize swallow strategies given min verbal or visual cues documented as of this encounter Visit Diagnoses Not on filedocumented in this encounter Care Teams Gang Rider Relationship Specialty Start Date End Date Leilain Veloz MD [address] [facility] [address] [place], [place] PCP - General Internal Medicine 06/08/18 documented as of this encounter
--- OUTSIDE RECORDS SUMMARY | 2024-11-12 13:37 | XMS_ITS | Encounter Summary ---
Author Organization [facility] Address [address] [place] [address] Care Team Providers Care Clinical Services Assistant Name Role Phone Leilani Veloz MD Primary Care Provider [phone] Encounter Details Date Type Department Care Team [...] Info) Description 11/28/2024 1:30 PM EDT Appointment [facility] [address] [place] [phone] 01/02/2025 9:30 AM EDT Office Visit [facility] Hematology Oncology [address] [place] [phone] Zechariah Meraz MD [address] [place] [address] 01/14/2025 10:30 AM EDT Appointment [facility] Radiation Oncology [address] [place] [phone] No Charles NP [address] [place] [address] documented as of this encounter Goals Goal Patient Goal Type Associated Problems Recent Progress Patient-Stated? Author LTG General No Xi Braun, THERMO PROCESSOR Note: Pt will consume least restrictive PO diet without changes to medical or respiratory status to maintain adequate oral nutrition hydration STG General No Xi Braun, THERMO PROCESSOR Note: Pt will participate in development of personalized HEP and perform 3-4xs/wk with min assist for modifications STG General No Xi Braun, THERMO PROCESSOR Note: Pt will participate in ongoing education re dysphagia s/p chemoradiation and techniques for symptom management STG General Xi Devlin, THERMO PROCESSOR Note: Pt will consume recommended diet textures and utilize swallow strategies given min verbal or visual cues documented as of this encounter Visit Diagnoses Not on filedocumented in this encounter Care Teams Clinical Services Assistant Relationship Specialty Start Date End Date Leilani Veloz MD [facility] [address] PCP - General Internal Medicine 06/08/18 documented as of this encounter
--- OUTSIDE RECORDS SUMMARY | 2024-11-12 13:37 | XMS_ITS ---
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 ([facility] V24, [facility] V28) 12/28/2023 Cancer Staging:Clinical stage from 11/22/2023:Stage II(cT2, cN2, cM0, p16+) - Signed by Chris Benitez MD on 05/21/2024 Pulmonary embolism ([facility] V24, [facility] V28) Current Oncology Plans CENTRAL VENOUS ACCESS ( CVA ) MAINTENANCE / BLOOD DRAW / CATHETER CLEARANCE / DRESSING CHANGE / FLUSH* Plan Start Date:10/09/2024 Plan Provider:Zechariah Meraz MD Linked Problems 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 Past Plans No past plan information found. Radiation Treatments * No radiation treatments are documented for this patient in [facility]. Treatments may have been administered in another system.
--- OUTSIDE RECORDS SUMMARY | 2024-11-12 13:37 | XMS_ITS ---
Author Organization [facility] Address [address] [place] [address] Care Team Providers Care Body Team Member Name Role Phone Leilani Veloz MD Primary Care Provider [phone] Active Problems Problem Noted Date Diagnosed Date Malignant neoplasm of base of tongue 12/28/[address] 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 (HCC) Treatment Medications sodium chloride (NS) 0.9 % Past Plans ONCOLOGY TREATMENT Plan Name Start Date Discontinue Date Treatment Medications Discontinue Reason Plan Provider Cycles [facility] OP WEEKLY CARBOPLATIN (HEAD & NECK) 024 04/12/2024 albuterol (PROVENTIL)CARBOplatin (PARAPLATIN) chemo infusion (by AUC)dexamethasone (DECADRON) DOSE > 10 mg IVPBdexamethasone sod phosphate PF (DECADRON)diphenhydrAMIN E (BENADRYL)EPINEPHrinefam otidine (PF) (PEPCID)hydrocortisone (SOLU-CORTEF) IVondansetron (ZOFRAN-ODT)palonosetron (ALOXI)prochlorperazine (COMPAZINE)Saline Flush 0.9 %sodium chloride (NS) 0.9 %sodium chloride 0.9% bolus (NS) Therapy Complete Zechariah Meraz MD 1 of 1 cycle started [facility] OP CISPLATIN WEEKLY 024 03/05/2024 albuterol (PROVENTIL)CISplatin (PLATINOL) chemo infusion No mannitolcustom IV infusion builderdexamethasone (DECADRON)diphenhydrAMIN E (BENADRYL)EPINEPHrinefam otidine (PF) (PEPCID)fosaprepitant IV Piggybackhydrocortisone (SOLU-CORTEF) IVpalonosetron (ALOXI)Saline Flush 0.9 %sodium chloride (NS) 0.9 %sodium chloride 0.9% bolus (NS) Not Tolerated Zechariah Meraz MD 1 of 3 cycles started [facility] OP CISPLATIN 100MG/M2 (FOR USE WITH [...] treatments are documented for this patient in [facility]. Treatments may have been administered in another system.
--- OUTSIDE RECORDS SUMMARY | 2024-11-12 13:37 | XMS_ITS | Encounter Summary ---
Author Organization [facility] Address [address] [place] [address] Care Team Providers Care Pot Washer Name Role Phone Leilani Veloz MD Primary Care Provider [phone] Encounter Details Date Type Department Care Team [...] Info) Description 11/28/2024 1:30 PM EDT Appointment [facility] Infusion [facility] [address] [place] [phone] 01/02/2025 9:30 AM EDT Office Visit [facility] Hematology Oncology [address] [place] [phone] Zechariah Meraz MD [address] [place] [phone] 01/14/2025 10:30 AM EDT Appointment [facility] Radiation Oncology [address] [place] [phone] No Charels NP 271 [place] [address] documented as of this encounter Goals Goal Patient Goal Type Associated Problems Recent Progress Patient-Stated? Author LTG General Xi Devlin, NOTCHER Note: Pt will consume least restrictive PO diet without changes to medical or respiratory status to maintain adequate oral nutrition hydration STG General Xi Devlin, NOTCHER Note: Pt will participate in development of personalized HEP and perform 3-4xs/wk with min assist for modifications STG Xi Morris, NOTCHER Note: Pt will participate in ongoing education re dysphagia s/p chemoradiation and techniques for symptom management [facility] Xi Morris, NOTCHER Note: Pt will consume recommended diet textures and utilize swallow strategies given min verbal or visual cues documented as of this encounter Visit Diagnoses Not on filedocumented in this encounter Care Teams Pot Washer Relationship Specialty Start Date End Date Leilani Veloz MD [facility] [address] PCP - General Internal Medicine 06/08/18 documented as of this encounter
--- OUTSIDE RECORDS SUMMARY | 2024-11-12 13:37 | XMS_ITS | Encounter Summary ---
Author Organization [facility] Address [address] [place] [address] Care Team Providers Care Senior Sales Operations Manager Name Role Phone Leilani Veloz MD Primary Care Provider [phone] Encounter Details Date Type Department Care Team [...] Info) Description 11/28/2024 1:30 PM EDT Appointment [facility] Infusion Center [address] [place] [phone] 01/02/2025 9:30 AM EDT Office Visit [facility] Hematology Oncology [address] [place] [phone] Zechariah Meraz MD [address] [place] [address] 01/14/2025 10:30 AM EDT Appointment [facility] Radiation Oncology [address] [place] [phone] No Charles NP [address] [place] [address] documented as of this encounter Goals Goal Patient Goal Type Associated Problems Recent Progress Patient-Stated? Author LTG Xi Morris, OTOLARYNGOLOGY REP Note: Pt will consume least restrictive PO diet without changes to medical or respiratory status to maintain adequate oral nutrition hydration STG Xi Morris, OTOLARYNGOLOGY REP Note: Pt will participate in development of personalized HEP and perform 3-4xs/wk with min assist for modifications STG Xi Morris, OTOLARYNGOLOGY REP Note: Pt will participate in ongoing education re dysphagia s/p chemoradiation and techniques for symptom management STG Xi Morris, OTOLARYNGOLOGY REP Note: Pt will consume recommended diet textures and utilize swallow strategies given min verbal or visual cues documented as of this encounter Visit Diagnoses Not on filedocumented in this encounter Care Teams Senior Sales Operations Manager Relationship Specialty Start Date End Date Leilani Veloz MD 1221 [facility] [address] [place], [place] PCP - General Internal Medicine 06/08/18 documented as of this encounter
--- OUTSIDE RECORDS SUMMARY | 2024-11-12 13:37 | XMS_ITS | Encounter Summary ---
Author Organization [facility] Address [address] [place] [address] Care Team Providers Care Industrial Automation Engineer Name Role Phone Leilani Veloz MD Primary Care Provider [phone] Encounter Details Date Type Department Care Team [...] Info) Description 11/28/2024 1:30 PM EDT Appointment [facility] Infusion Center [address] [place] [address] 2[address] [place] [address] 01/02/2025 9:30 AM EDT Office Visit [facility] Hematology Oncology [address] [place] [address] Zechariah Meraz MD [address] [place] [address] 01/14/2025 10:30 AM EDT Appointment [facility] Radiation Oncology [address] [phone] No Charles NP [address] [place] [address] documented as of this encounter Goals Goal Patient Goal Type Associated Problems Recent Progress Patient-Stated? Author Xi Mulligan, SECURITY SYSTEMS ENGINEER Note: Pt will consume least restrictive PO diet without changes to medical or respiratory status to maintain adequate oral nutrition hydration [facility] Xi Morris, SECURITY SYSTEMS ENGINEER Note: Pt will participate in development of personalized HEP and perform 3-4xs/wk with min assist for modifications [facility] Xi Morris, SECURITY SYSTEMS ENGINEER Note: Pt will participate in ongoing education re dysphagia s/p chemoradiation and techniques for symptom management [facility] Xi Morris, SECURITY SYSTEMS ENGINEER Note: Pt will consume recommended diet textures and utilize swallow strategies given min verbal or visual cues documented as of this encounter Visit Diagnoses Not on filedocumented in this encounter Care Teams Industrial Automation Engineer Relationship Specialty Start Date End Date Leilani Veloz MD [address] [place], [place] PCP - General Internal Medicine 06/08/18 documented as of this encounter
--- OUTSIDE RECORDS SUMMARY | 2024-11-12 13:37 | XMS_ITS | Encounter Summary ---
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 He underwent a fiberoptic laryngoscopy on 11/30/2023 [...] a course of Diflucan x 7 days. Jackson through the radiation course, he no longer [...] starting to take soups orally. 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 He is followed by our Header Set Up Operator. He reports mild diarrhea since starting the [employer] feeding. We discontinued weekly cisplatin following four weekly infusions due to renal failure. We planned to start weekly carboplatin. A platelet count on 02/28/2024 was 83,000. We delayed planned weekly carboplatin by 1 week. An ANC on 03/06/2024 was 1.0. A platelet count was 71,000. We delayed weekly carboplatin by another week. He had 2 syncopal episodes on 03/09/2024 who presented to the [facility] ER 03/10/2024. 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 He is . He has 2 [...] stage II T2N2 base of tongue cancer, [id number]. We will plan for chemoradiation with weekly [...] a course of Diflucan x 7 days. Jackson through the radiation course, he no longer [...] to take soups orally. 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 He is followed by our Header Set Up Operator. He reports mild diarrhea since starting the [...] episodes on 03/09/2024 who presented to the [facility] ER 03/10/2024. A chest CTA on 03/10/2024 [...] Info) Description 11/28/2024 1:30 PM EDT Appointment [facility] Infusion Center [address] [phone] 01/02/2025 9:30 AM EDT Office Visit [facility] Hematology Oncology [address] [place] [address] Zechariah Meraz MD [address] [place] [address] 01/14/2025 10:30 AM EDT Appointment [facility] Radiation Oncology [address] [phone] No Charles NP 271 [place], [place] [phone] documented as of this encounter Goals Goal Patient Goal Type Associated Problems Recent Progress Patient-Stated? Author LTXi Ramirez, ELECTRICAL SUBCONTRACTOR Note: Pt will consume least restrictive PO diet without changes to medical or respiratory status to maintain adequate oral nutrition hydration [facility] Xi Morris, ELECTRICAL SUBCONTRACTOR Note: Pt will participate in development of personalized HEP and perform 3-4xs/wk with min assist for modifications Xi Ireland, ELECTRICAL SUBCONTRACTOR Note: Pt will participate in ongoing education re dysphagia s/p chemoradiation and techniques for symptom management [facility] Xi Morris, ELECTRICAL SUBCONTRACTOR Note: Pt will consume recommended diet textures [...] on filedocumented in this encounter Care Teams Automotive Manager Relationship Specialty Start Date End Date Leilani Veloz MD 1221 [facility] [address] [place] PCP - General Internal Medicine 06/08/18 documented as of this encounter
--- OUTSIDE RECORDS SUMMARY | 2024-11-12 13:37 | XMS_ITS | Encounter Summary ---
Author Organization [facility] Address [address] [place] [address] Care Team Providers Care Nodulizer Name Role Phone Leilani Veloz MD Primary Care Provider [phone] Encounter Details Date Type Department Care Team [...] Info) Description 11/28/2024 1:30 PM EDT Appointment [facility] Infusion Center [address] [place] [phone] 01/02/2025 9:30 AM EDT Office Visit [facility] Hematology Oncology [address] [place] [phone] Zechariah Meraz MD [address] [place] [phone] 01/14/2025 10:30 AM EDT Appointment [facility] Radiation Oncology [address] [place] [phone] No Charles NP 271 [place], [place] [phone] documented as of this encounter Goals Goal Patient Goal Type Associated Problems Recent Progress Patient-Stated? Author LTG General No Xi Braun, LABORATORY ASST Note: Pt will consume least restrictive PO diet without changes to medical or respiratory status to maintain adequate oral nutrition hydration STG General No Vick Braunison B, LABORATORY ASST Note: Pt will participate in development of personalized HEP and perform 3-4xs/wk with min assist for modifications Xi Ireland, LABORATORY ASST Note: Pt will participate in ongoing education re dysphagia s/p chemoradiation and techniques for symptom management [facility] Xi Morris, LABORATORY ASST Note: Pt will consume recommended diet textures and utilize swallow strategies given min verbal or visual cues documented as of this encounter Visit Diagnoses Not on filedocumented in this encounter Care Teams Nodulizer Relationship Specialty Start Date End Date Leilani Veloz MD [address] [place] [address] PCP - General Internal Medicine 06/08/18 documented as of this encounter
--- OUTSIDE RECORDS SUMMARY | 2024-11-12 13:37 | XMS_ITS | Encounter Summary ---
Author Organization [facility] Address [address] [place] [address] Care Team Providers Care Wellness Program Administrator Name Role Phone Leilani Veloz MD Primary Care Provider [phone] Encounter Details Date Type Department Care Team [...] Description 11/28/2024 1:30 PM EDT Appointment [facility] Infusion Center [address] [place] [phone] 01/02/2025 9:30 AM EDT Office Visit [facility] Hematology Oncology [address] [place] [phone] Zechariah Meraz MD [address] [place] [phone] 01/14/2025 10:30 AM EDT Appointment [facility] Radiation Oncology [address] [place] [phone] No Charles NP [address] [place] [address] documented as of this encounter Goals Goal Patient Goal Type Associated Problems Recent Progress Patient-Stated? Author LTG General No Xi Braun, CASE COORDINATOR Note: Pt will consume least restrictive PO diet without changes to medical or respiratory status to maintain adequate oral nutrition hydration STG General No Xi Braun, CASE COORDINATOR Note: Pt will participate in development of personalized HEP and perform 3-4xs/wk with min assist for modifications [facility] Xi Devlin, CASE COORDINATOR Note: Pt will participate in ongoing education re dysphagia s/p chemoradiation and techniques for symptom management Xi Ireland, CASE COORDINATOR Note: Pt will consume recommended diet textures and utilize swallow strategies given min verbal or visual cues documented as of this encounter Visit Diagnoses Not on filedocumented in this encounter Care Teams Wellness Program Administrator Relationship Specialty Start Date End Date Leilani Veloz MD [address] PCP - General Internal Medicine 06/08/18 documented as of this encounter
--- OUTSIDE RECORDS SUMMARY | 2024-11-12 13:37 | XMS_ITS | Encounter Summary ---
Author Organization [facility] Address [address] [place] [address] Care Team Providers Care Property Underwriter Name Role Phone Leilani Veloz MD Primary Care Provider [phone] Encounter Details Date Type Department Care Team [...] Info) Description 11/28/2024 1:30 PM EDT Appointment [facility] Infusion Center [address] [place] [phone] 01/02/2025 9:30 AM EDT Office Visit [facility] Hematology Oncology [address] [place] [phone] Zechariah Meraz MD [address] [place] [phone] 01/14/2025 10:30 AM EDT Appointment [facility] Radiation Oncology [address] [place] [phone] No Charles NP [address] [place] [address] documented as of this encounter Goals Goal Patient Goal Type Associated Problems Recent Progress Patient-Stated? Author LTG Xi Morris, SPORTS BROADCASTER Note: Pt will consume least restrictive PO diet without changes to medical or respiratory status to maintain adequate oral nutrition hydration STG Xi Morris, SPORTS BROADCASTER Note: Pt will participate in development of personalized HEP and perform 3-4xs/wk with min assist for modifications Xi Ireland, SPORTS BROADCASTER Note: Pt will participate in ongoing education re dysphagia s/p chemoradiation and techniques for symptom management [facility] Braun Xi B, SPORTS BROADCASTER Note: Pt will consume recommended diet textures and utilize swallow strategies given min verbal or visual cues documented as of this encounter Visit Diagnoses Not on filedocumented in this encounter Care Teams Property Underwriter Relationship Specialty Start Date End Date Leilani Veloz MD [facility] [address] PCP - General Internal Medicine 06/08/18 documented as of this encounter
--- OUTSIDE RECORDS SUMMARY | 2024-11-12 13:37 | XMS_ITS | Encounter Summary ---
Author Organization [facility] Address [address] [place] [address] Care Team Providers Care Table Assembler Metal Name Role Phone Leilani Veloz MD Primary [...] PM EDT Appointment [facility] Infusion Center [address] [place] [phone] 01/02/2025 9:30 AM EDT Office Visit [facility] Hematology Oncology [address] [place] [phone] Zechariah Meraz MD [address] [place] [phone] 01/14/2025 10:30 AM EDT Appointment [facility] Radiation Oncology [address] [place] [phone] No Charles NP [address] [place] [address] documented as of this encounter Goals Goal Patient Goal Type Associated Problems Recent Progress Patient-Stated? Author LTG General No Xi Braun, PRICER BAGGER Note: Pt will consume least restrictive PO diet without changes to medical or respiratory status to maintain adequate oral nutrition hydration STG General No Xi Braun, PRICER BAGGER Note: Pt will participate in development of personalized HEP and perform 3-4xs/wk with min assist for modifications STG General No Xi Braun, PRICER BAGGER Note: Pt will participate in ongoing education re dysphagia s/p chemoradiation and techniques for symptom management STG General No Xi Braun, PRICER BAGGER Note: Pt will consume recommended diet textures and utilize swallow strategies given min verbal or visual cues documented as of this encounter Visit Diagnoses Not on filedocumented in this encounter Care Teams Table Assembler Metal Relationship Specialty Start Date End Date Leilani Veloz MD [address] [place] [address] PCP - General Internal Medicine 06/08/18 documented as of this encounter
--- OUTSIDE RECORDS SUMMARY | 2024-11-12 13:38 | XMS_ITS | Encounter Summary ---
Author Organization [facility] Address [address] [place] [address] Care Team Providers Care Resident Hall Director Name Role Phone Leilani Veloz MD Primary Care Provider [phone] Encounter Details Date Type Department Care Team [...] [facility] Infusion Center [address] [place] [phone] 01/02/2025 9:30 AM EDT Office Visit [facility] Hematology Oncology [address] [place] [phone] Zechariah Meraz MD [address] [place] [address] 01/14/2025 10:30 AM EDT Appointment [facility] Radiation Oncology [address] [place] [phone] No Charles NP [address] [place] [address] documented as of this encounter Goals Goal Patient Goal Type Associated Problems Recent Progress Patient-Stated? Author LTG General Xi Devlin, POWERHOUSE HELPER Note: Pt will consume least restrictive PO diet without changes to medical or respiratory status to maintain adequate oral nutrition hydration STG General Xi Devlin, POWERHOUSE HELPER Note: Pt will participate in development of personalized HEP and perform 3-4xs/wk with min assist for modifications STG General No Xi Braun, POWERHOUSE HELPER Note: Pt will participate in ongoing education re dysphagia s/p chemoradiation and techniques for symptom management STG General No Xi Braun, POWERHOUSE HELPER Note: Pt will consume recommended diet textures and utilize swallow strategies given min verbal or visual cues documented as of this encounter Visit Diagnoses Not on filedocumented in this encounter Care Teams Resident Hall Director Relationship Specialty Start Date End Date Leilani Veloz MD [facility] [address] PCP - General Internal Medicine 06/08/18 documented as of this encounter
--- OUTSIDE RECORDS SUMMARY | 2024-11-12 13:38 | XMS_ITS | Encounter Summary ---
Author Organization [facility] Address [address] [place] [address] Care Team Providers Care Direct Service Worker Name Role Phone Leilani Veloz MD Primary Care Provider [phone] Encounter Details Date Type Department Care Team Description 02/08/2024 Social Work [facility] Oncology Services [address] [place] [address] Miguel Guillen, [facility] Social History Tobacco Use Types Packs/Day [...] on filedocumented in this encounter Care Teams Direct Service Worker Relationship Specialty Start Date End Date Leilani Veloz MD [facility] [address] [phone] PCP - General Internal Medicine 12/25/23 documented as of this encounter
--- OUTSIDE RECORDS SUMMARY | 2024-11-12 13:38 | XMS_ITS | Encounter Summary ---
Author Organization [facility] Address [address] [place] [address] Care Team Providers Care Speech Writer Name Role Phone Leilani Veloz MD Primary Care Provider [phone] Encounter Details Date Type Department Care Team [...] unit after RT. Labs resulted and WNL. Trader improved to 1.02. Pre hydration initiated and [...] about 600ml water. Pt had a full Mayi Zhaopin drink via g-tube as well as 240ml [...] EDT Appointment [facility] Infusion Center [address] [phone] 01/02/2025 9:30 AM EDT Office Visit [facility] Hematology Oncology [address] [place] [phone] Zechariah Meraz MD [address] [place] [address] 01/14/2025 10:30 AM EDT Appointment [facility] Radiation Oncology [address] [phone] No Charles, JANES [address] [place] [address] documented as of this encounter Goals Goal Patient Goal Type Associated Problems Recent Progress Patient-Stated? Author LTG Xi Morris, DRY MILL WORKER Note: Pt will consume least restrictive PO diet without changes to medical or respiratory status to maintain adequate oral nutrition hydration Xi Ireland, DRY MILL WORKER Note: Pt will participate in development of personalized HEP and perform 3-4xs/wk with min assist for modifications Xi Ireland, DRY MILL WORKER Note: Pt will participate in ongoing education re dysphagia s/p chemoradiation and techniques for symptom management [facility] Xi Morris, DRY MILL WORKER Note: Pt will consume recommended diet textures and utilize swallow strategies given min verbal or visual cues documented as of this encounter Visit Diagnoses Not on filedocumented in this encounter Care Teams Speech Writer Relationship Specialty Start Date End Date Leilani Veloz MD 12[address] [facility] [address] [place], [place] PCP - General Internal Medicine 06/08/18 documented as of this encounter
--- OUTSIDE RECORDS SUMMARY | 2024-11-12 13:38 | XMS_ITS | Encounter Summary ---
Author Organization [facility] Address [address] [place] [address] Care Team Providers Care Political Science Faculty Member Name Role Phone Leilani Veloz MD Primary Care Provider [phone] Encounter Details Date Type Department Care Team [...] and once labs result, will review with client relations representative provider as Dr. Meraz is off.Pt made [...] Info) Description 11/28/2024 1:30 PM EDT Appointment [facility] Infusion Center [address] [place] [phone] 01/02/2025 9:30 AM EDT Office Visit [facility] Hematology Oncology [address] [place] [phone] Zechariah Meraz MD [address] [place] [address] 01/14/2025 10:30 AM EDT Appointment [facility] Radiation Oncology [address] [phone] No Charles NP 271 [place], [place] [phone] documented as of this encounter Goals Goal Patient Goal Type Associated Problems Recent Progress Patient-Stated? Author LTG Xi Morris, CLAY THROWER Note: Pt will consume least restrictive PO diet without changes to medical or respiratory status to maintain adequate oral nutrition hydration STG Xi Morris, CLAY THROWER Note: Pt will participate in development of personalized HEP and perform 3-4xs/wk with min assist for modifications STG Xi Morris, CLAY THROWER Note: Pt will participate in ongoing education re dysphagia s/p chemoradiation and techniques for symptom management STG Xi Morris, CLAY THROWER Note: Pt will consume recommended diet textures and utilize swallow strategies given min verbal or visual cues documented as of this encounter Visit Diagnoses Not on filedocumented in this encounter Care Teams Political Science Faculty Member Relationship Specialty Start Date End Date Leilani Veloz MD [address] PCP - General Internal Medicine 06/08/18 documented as of this encounter
--- OUTSIDE RECORDS SUMMARY | 2024-11-12 13:38 | XMS_ITS | Clinical Summary ---
Author Organization 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 ([facility] V24, [facility] V28) 12/28/2023 Cancer Staging:Clinical stage from 11/22/2023:Stage II(cT2, cN2, cM0, p16+) - Signed by Chris Benitez MD on 05/21/2024 Pulmonary embolism ([facility] V24, [facility] V28) Encounters Date Type Department Care Team Description 10/09/2024 9:18 AM EDT - 10/09/2024 11:59 PM EDT Hospital Encounter [facility] [address] [facility] [address] [place] [address] Zechariah Meraz MD Malignant neoplasm of base of tongue ([facility] V24, [facility] V28) (Primary Dx) Discharge Disposition: Home or Self Care 10/02/2024 9:45 AM EDT Office Visit [facility] Hematology Oncology [address] [place] [phone] Zechariah Meraz MD Malignant neoplasm of base of tongue ([facility] V24, [facility] V28) (Primary Dx) 08/27/2024 9:54 AM EST - 08/27/2024 11:59 PM EST Hospital Encounter [facility] Infusion Center [address] [place] [phone] Zechariah Meraz MD Malignant neoplasm of base of tongue ([facility] V24, [facility] V28) (Primary Dx) Discharge Disposition: Home or Self Care 08/22/2024 Telephone [facility] Radiation Oncology [address] [place] [phone] Angeliac Cui, SERGEI Med Refill from Last 3 [...] Medical History Date Comments Hypertension DX:Hypertension Stroke ([facility] V24, [facility] V28) DX:Stroke (HCC) Pulmonary embolism ([facility] V24, [facility] V28) DVT (deep venous thrombosis) ([facility] V24, [facility] V28) Family History Medical History Relation [...] Info) Description 11/28/2024 1:30 PM EDT Appointment [facility] Center [address] [phone] 01/02/2025 9:30 AM EDT Office Visit [facility] Hematology Oncology [address] [place] [phone] Zechairah Meraz MD [address] [place] [address] 01/14/2025 10:30 AM EDT Appointment [facility] Radiation Oncology [address] [place] [phone] No Charles NP [address] [place] [address] Health Maintenance Due Date Last Done Comments [...] Recent Progress Patient-Stated? Author LTG Xi Morris, INSPECTOR BRAKE LINING Note: Pt will consume least restrictive PO diet without changes to medical or respiratory status to maintain adequate oral nutrition hydration [facility] Xi Morris, INSPECTOR BRAKE LINING Note: Pt will participate in development of personalized HEP and perform 3-4xs/wk with min assist for modifications Xi Ireland, INSPECTOR BRAKE LINING Note: Pt will participate in ongoing education re dysphagia s/p chemoradiation and techniques for symptom management [facility] Xi Morris, INSPECTOR BRAKE LINING Note: Pt will consume recommended diet textures [...] LAB CHEMISTRY METHOD 06/19/2024 3:24 PM EST [facility] Triglycerides 48 0 - 150 mg/dL LAB CHEMISTRY METHOD 06/19/2024 3:24 PM EST [facility] HDL 52 >=40 mg/dL LAB CHEMISTRY METHOD 06/19/2024 3:24 PM [facility] LDL Calculated 36 0 - 100 mg/dL LAB CHEMISTRY METHOD 06/19/2024 3:24 PM EST [facility] VLDL Cholesterol Juan Daniel 9.6 mg/dL LAB CHEMISTRY METHOD 06/19/2024 3:24 PM EST [facility] Non HDL Chol. (LDL+VLDL) 46 <145 mg/dL LAB CHEMISTRY METHOD 06/19/2024 3:24 PM EST [facility] Chol/HDL Ratio 1.9 0.0 - 4.4 LAB CHEMISTRY METHOD 06/19/2024 3:24 PM EST [facility] Blood Venous blood specimen / Unknown Venipuncture / Unknown 06/19/2024 9:54 AM EST 06/19/2024 9:54 AM EST us Leilani Veloz MD LAB BLOOD ORDERABLES Final Re sult [facility] [address] [place] [address], [place] [phone] * (ABNORMAL) Comprehensive metabolic panel (06/19/2024 9:54 [...] LAB CHEMISTRY METHOD 06/19/2024 3:09 PM EST [facility] Alkaline Phosphatase 59 42 - 121 unit/L LAB CHEMISTRY METHOD 06/19/2024 3:09 PM [facility] Total Protein 5.7(L) 6.0 - 8.0 g/dL LAB CHEMISTRY METHOD 06/19/2024 3:09 PM EST [facility] Albumin 3.3 3.2 - 5.0 g/dL LAB CHEMISTRY METHOD 06/19/2024 3:09 PM [facility] Total Bilirubin 0.5 0.0 - 1.4 mg/dL LAB CHEMISTRY METHOD 06/19/2024 3:09 PM [facility] Blood Venous blood specimen / Unknown Venipuncture / Unknown 06/19/2024 9:54 AM EST 06/19/2024 9:54 AM EST Leilani Veloz MD LAB BLOOD ORDERABLES Final Re sult [facility] [address] [place] [address], from Last 3 Months or Most Recently Relevant to Health Maintenance Insurance [facility] ([facility]) Care Teams Capacity Planning Manager Relationship Specialty Start Date End Date Leilani Veloz MD [address] [place] [address] PCP - General Internal Medicine 06/08/18
--- OUTSIDE RECORDS SUMMARY | 2024-11-12 13:38 | XMS_ITS | Encounter Summary ---
Author Organization [facility] Address [address] [place] [address] Care Team Providers Care Radiation Technician Name Role Phone Leilani Veloz MD Primary Care Provider [phone] Encounter Details Date Type Department Care Team [...] Pt resting comfortably at this time. Call [place]ston in reach. 1335- Hydration completed without incident. Pt up to BR x1 without issue. Labs resulted and WNL. Carboplatin rn admission updated and Dr. Meraz to sign. Pre meds released and given. Pt attempting to rest atthis time but states the morphine is starting to wear off. Is there any way I can get something for the pain. This RN sent halo to . Call [place] in reach. 1440- MS IVP orders obtained, [...] Info) Description 11/28/2024 1:[address] [facility] Infusion Center [address] [phone] 01/02/2025 9:30 AM EDT Office Visit [facility] Hematology Oncology [address] [place] [phone] Zechariah Meraz MD [address] [place] [address] 01/14/2025 10:[address] [facility] Radiation Oncology [address] [place] [phone] No Charles NP [address] [place] [address] documented as of this encounter Goals Goal Patient Goal Type Associated Problems Recent Progress Patient-Stated? Author Xi Mulligan, CHARTER BOAT OPERATOR Note: Pt will consume least restrictive PO diet without changes to medical or respiratory status to maintain adequate oral nutrition hydration Xi Ireland, CHARTER BOAT OPERATOR Note: Pt will participate in development of personalized HEP and perform 3-4xs/wk with min assist for modifications Xi Ireland, CHARTER BOAT OPERATOR Note: Pt will participate in ongoing education re dysphagia s/p chemoradiation and techniques for symptom management Xi Ireland, CHARTER BOAT OPERATOR Note: Pt will consume recommended diet textures and utilize swallow strategies given min verbal or visual cues documented as of this encounter Visit Diagnoses Not on filedocumented in this encounter Care Teams Radiation Technician Relationship Specialty Start Date End Date Leilani Veloz MD [address] PCP - General Internal Medicine 06/08/18 documented as of this encounter
--- OUTSIDE RECORDS SUMMARY | 2024-11-12 13:38 | XMS_ITS | Encounter Summary ---
Author Organization [facility] Address [address] [place] [address] Care Team Providers Care Lumber Kiln Operator Name Role Phone Leilani Veloz MD Primary Care Provider [phone] Encounter Details Date Type Department Care Team [...] concern. Cisplatin initiated. PT sitting with Pita Clinical Nurse Specialist and Chani speech pathologist. PT up to [...] Info) Description 11/28/2024 1:30 PM EDT Appointment [facility] Infusion Center [address] [phone] 01/02/2025 9:30 AM EDT Office Visit [facility] Hematology Oncology [address] [place] [phone] Zechariah Meraz MD [address] [place] [phone] 01/14/2025 10:30 AM EDT Appointment [facility] Radiation Oncology [address] [phone] No Charles NP [address] [place] [address] documented as of this encounter Goals Goal Patient Goal Type Associated Problems Recent Progress Patient-Stated? Author LTG Xi Morris, JOB PLACEMENT OFFICER Note: Pt will consume least restrictive PO diet without changes to medical or respiratory status to maintain adequate oral nutrition hydration [facility] Xi Morris, JOB PLACEMENT OFFICER Note: Pt will participate in development of personalized HEP and perform 3-4xs/wk with min assist for modifications Xi Ireland, JOB PLACEMENT OFFICER Note: Pt will participate in ongoing education re dysphagia s/p chemoradiation and techniques for symptom management [facility] Xi Morris, JOB PLACEMENT OFFICER Note: Pt will consume recommended diet textures and utilize swallow strategies given min verbal or visual cues documented as of this encounter Visit Diagnoses Diagnosis Malignant neoplasm of base of tongue (CMS/HCC V24, CMS/HCC V28) Malignant neoplasm of base of tongue documented in this encounter Care Teams Lumber Kiln Operator Relationship Specialty Start Date End Date Leilani Veloz MD [address] [place], [place] PCP - General Internal Medicine 06/08/18 documented as of this encounter
--- OUTSIDE RECORDS SUMMARY | 2024-11-12 13:38 | XMS_ITS | Encounter Summary ---
Author Organization [facility] Address [address] [place] [address] Care Team Providers Care Carpet Cutter Name Role Phone Leilani Veloz MD Primary Care Provider [phone] Encounter Details Date Type Department Care Team Description 01/17/2024 Social Work [facility] Oncology Services [address] [place] [address] Miguel Guillen, [facility] Social History Tobacco Use Types Packs/Day Years [...] on filedocumented in this encounter Care Teams Carpet Cutter Relationship Specialty Start Date End Date Leilani Veloz MD [facility] [address] [phone] PCP - General Internal Medicine 12/25/23 documented as of this encounter
--- OUTSIDE RECORDS SUMMARY | 2024-11-12 13:38 | XMS_ITS | Encounter Summary ---
Author Organization [facility] Address [address] [place] [address] Care Team Providers Care General Forecaster Name Role Phone Leilani Veloz MD Primary Care Provider [phone] Encounter Details Date Type Department Care Team [...] Info) Description 11/28/2024 1:30 PM EDT Appointment [facility] Infusion Center [address] [place] [phone] 01/02/2025 9:30 AM EDT Office Visit [facility] Hematology Oncology [address] [place] [phone] Zechariah Meraz MD [address] [place] [phone] 01/14/2025 10:30 AM EDT Appointment [facility] Radiation Oncology [address] [place] [phone] No Charles NP [address] [place] [address] documented as of this encounter Goals Goal Patient Goal Type Associated Problems Recent Progress Patient-Stated? Author LTG General No Xi Braun, STORAGE WHARFAGE CLERK Note: Pt will consume least restrictive PO diet without changes to medical or respiratory status to maintain adequate oral nutrition hydration STG General No Xi Braun, STORAGE WHARFAGE CLERK Note: Pt will participate in development of personalized HEP and perform 3-4xs/wk with min assist for modifications STG Xi Morris, STORAGE WHARFAGE CLERK Note: Pt will participate in ongoing education re dysphagia s/p chemoradiation and techniques for symptom management Xi Ierland, STORAGE WHARFAGE CLERK Note: Pt will consume recommended diet textures and utilize swallow strategies given min verbal or visual cues documented as of this encounter Visit Diagnoses Not on filedocumented in this encounter Care Teams General Forecaster Relationship Specialty Start Date End Date Leilani Veloz MD [facility] [address] PCP - General Internal Medicine 06/08/18 documented as of this encounter
--- OUTSIDE RECORDS SUMMARY | 2024-11-12 13:38 | XMS_ITS | Encounter Summary ---
Author Organization [facility] Address [address] [place] [address] Care Team Providers Care Fruit Grower Name Role Phone Leilani Veloz MD Primary Care Provider [phone] Encounter Details Date Type Department Care Team [...] originally was scheduled for chemotherapy. Unfortunately, pt curtain cleaner continues to elevate and plts are also [...] time. Call conklin in reach. 1100- Pita, supplemental manager and Xi, RIVER GUIDE came to chairside assisting pt with feeds [...] Info) Description 11/28/2024 1:30 PM EDT Appointment [facility] Infusion Center [address] [phone] 01/02/2025 9:30 AM EDT Office Visit [facility] Hematology Oncology [address] [place] [phone] Zechariah Meraz MD [address] [place] [phone] 01/14/2025 10:30 AM EDT Appointment [facility] Radiation Oncology [address] [phone] No Charles NP [address] [place] [address] documented as of this encounter Goals Goal Patient Goal Type Associated Problems Recent Progress Patient-Stated? Author LTG Xi Morris, RIVER GUIDE Note: Pt will consume least restrictive PO diet without changes to medical or respiratory status to maintain adequate oral nutrition hydration [facility] Xi Morris, RIVER GUIDE Note: Pt will participate in development of personalized HEP and perform 3-4xs/wk with min assist for modifications Xi Ireland, RIVER GUIDE Note: Pt will participate in ongoing education re dysphagia s/p chemoradiation and techniques for symptom management [facility] Xi Morris, RIVER GUIDE Note: Pt will consume recommended diet textures and utilize swallow strategies given min verbal or visual cues documented as of this encounter Visit Diagnoses Not on filedocumented in this encounter Care Teams Fruit Grower Relationship Specialty Start Date End Date Leilani Veloz MD 1221 [facility] [address] [place], [place] PCP - General Internal Medicine 06/08/18 documented as of this encounter
--- OUTSIDE RECORDS SUMMARY | 2024-11-12 13:38 | XMS_ITS | Encounter Summary ---
Author Organization [facility] Address [address] [place] [address] Care Team Providers Care Workers Compensation Claims Adjuster Name Role Phone Leilani Veloz MD Primary Care Provider [phone] Encounter Details Date Type Department Care Team [...] Info) Description 11/28/2024 1:30 PM EDT Appointment [facility] Infusion Center [address] [place] [phone] 01/02/2025 9:30 AM EDT Office Visit [facility] Hematology Oncology [address] [place] [phone] Zechariah Meraz MD [address] [place] [phone] 01/14/2025 10:30 AM EDT Appointment [facility] Radiation Oncology [address] [place] [phone] No Charles NP [address] [place] [address] documented as of this encounter Goals Goal Patient Goal Type Associated Problems Recent Progress Patient-Stated? Author LTXi Ramirez, RESTORATION OFFICER Note: Pt will consume least restrictive PO diet without changes to medical or respiratory status to maintain adequate oral nutrition hydration STG Xi Morris, RESTORATION OFFICER Note: Pt will participate in development of personalized HEP and perform 3-4xs/wk with min assist for modifications Xi Ireland, RESTORATION OFFICER Note: Pt will participate in ongoing education re dysphagia s/p chemoradiation and techniques for symptom management STG Xi Morris, RESTORATION OFFICER Note: Pt will consume recommended diet textures and utilize swallow strategies given min verbal or visual cues documented as of this encounter Visit Diagnoses Not on filedocumented in this encounter Care Teams Workers Compensation Claims Adjuster Relationship Specialty Start Date End Date Leilani Veloz MD [facility] [address] [place], [place] PCP - General Internal Medicine 06/08/18 documented as of this encounter
--- OUTSIDE RECORDS SUMMARY | 2024-11-12 13:38 | XMS_ITS | Encounter Summary ---
Author Organization [facility] Address [address] [place] [address] Care Team Providers Care Wellness Nurse Rn Name Role Phone Leilani Veloz MD Primary Care Provider [phone] Encounter Details Date Type Department Care Team [...] Description 11/28/2024 1:30 PM EDT Appointment [facility] Infusion Center [address] [place] [phone] 01/02/2025 9:30 AM EDT Office Visit [facility] Hematology Oncology [address] [place] [phone] Zechariah Meraz MD [address] [place] [phone] 01/14/2025 10:30 AM EDT Appointment [facility] Radiation Oncology [address] [place] [phone] No Charles NP [address] [place] [address] documented as of this encounter Goals Goal Patient Goal Type Associated Problems Recent Progress Patient-Stated? Author LTG Xi Morris, GROUND PRODUCTS DIRECTOR Note: Pt will consume least restrictive PO diet without changes to medical or respiratory status to maintain adequate oral nutrition hydration STG Xi Morris, GROUND PRODUCTS DIRECTOR Note: Pt will participate in development of personalized HEP and perform 3-4xs/wk with min assist for modifications Xi Ireland, GROUND PRODUCTS DIRECTOR Note: Pt will participate in ongoing education re dysphagia s/p chemoradiation and techniques for symptom management STG Xi Morris, GROUND PRODUCTS DIRECTOR Note: Pt will consume recommended diet textures and utilize swallow strategies given min verbal or visual cues documented as of this encounter Visit Diagnoses Not on filedocumented in this encounter Care Teams Wellness Nurse Rn Relationship Specialty Start Date End Date Leilani Veloz MD [address] PCP - General Internal Medicine 06/08/18 documented as of this encounter
--- OUTSIDE RECORDS SUMMARY | 2024-11-12 13:38 | XMS_ITS | Encounter Summary ---
Author Organization [facility] Address [address] [place] [address] Care Team Providers Care Door Puller Name Role Phone Leilani Veloz MD Primary Care Provider [phone] Encounter Details Date Type Department Care Team [...] Appointment [facility] Infusion Center [address] [place] [phone] 01/02/2025 9:30 AM EDT Office Visit [facility] Hematology Oncology [address] [place] [phone] Zechariah Meraz MD [address] [place] [address] 01/14/2025 10:30 AM EDT Appointment [facility] Radiation Oncology [address] [place] [phone] No Charles NP [address] [place] [address] documented as of this encounter Goals Goal Patient Goal Type Associated Problems Recent Progress Patient-Stated? Author LTG Xi Morris, MEDICAL STAFF CREDENTIALING COORDINATOR Note: Pt will consume least restrictive PO diet without changes to medical or respiratory status to maintain adequate oral nutrition hydration [facility] Xi Morris, MEDICAL STAFF CREDENTIALING COORDINATOR Note: Pt will participate in development of personalized HEP and perform 3-4xs/wk with min assist for modifications Xi Ireland, MEDICAL STAFF CREDENTIALING COORDINATOR Note: Pt will participate in ongoing education re dysphagia s/p chemoradiation and techniques for symptom management [facility] Xi Morris, MEDICAL STAFF CREDENTIALING COORDINATOR Note: Pt will consume recommended diet textures and utilize swallow strategies given min verbal or visual cues documented as of this encounter Visit Diagnoses Diagnosis Malignant neoplasm of base of tongue (CMS/HCC V24, CMS/HCC V28) Malignant neoplasm of base of tongue documented in this encounter Care Teams Door Puller Relationship Specialty Start Date End Date Leilani Veloz MD [address] PCP - General Internal Medicine 06/08/18 documented as of this encounter
--- OUTSIDE RECORDS SUMMARY | 2024-11-12 13:38 | XMS_ITS | Encounter Summary ---
Author Organization [facility] Address [address] [place] [address] Care Team Providers Care Assistant Account Executive Name Role Phone Leilani Veloz MD Primary Care Provider [phone] Encounter Details Date Type Department Care Team [...] swallow medications so he purchased a pill varnish maker helper and will start crushing his pills at [...] EDT Appointment [facility] [address] [phone] 01/02/2025 9:30 AM EDT Office Visit [facility] Hematology Oncology [address] [place] [phone] Zechariah Meraz MD 271 [place] [address] 01/14/2025 10:30 AM EDT Appointment [facility] Radiation Oncology [address] [place] [phone] No Charles NP 271 [place] [address] documented as of this encounter Goals Goal Patient Goal Type Associated Problems Recent Progress Patient-Stated? Author Xi Mulligan, TORPEDO SPECIALIST Note: Pt will consume least restrictive PO diet without changes to medical or respiratory status to maintain adequate oral nutrition hydration Xi Ireland, TORPEDO SPECIALIST Note: Pt will participate in development of personalized HEP and perform 3-4xs/wk with min assist for modifications Xi Ireland, TORPEDO SPECIALIST Note: Pt will participate in ongoing education re dysphagia s/p chemoradiation and techniques for symptom management Xi Ireland, TORPEDO SPECIALIST Note: Pt will consume recommended diet [...] tongue documented in this encounter Care Teams Assistant Account Executive Relationship Specialty Start Date End Date Leilani Veloz MD [address] [facility] [address] [place], [place] PCP - General Internal Medicine 06/08/18 documented as of this encounter
--- OUTSIDE RECORDS SUMMARY | 2024-11-12 13:38 | XMS_ITS | Clinical Summary ---
Author Organization [facility] Address [address] [place] [address] Care Team Providers Care Reel Operator Name Role Phone Leilani Veloz MD Primary Care Provider [phone] Allergies No known active allergies Medications Medication [...] 60 tablet 0 03/05/2024 Active nystatin (MYCOSTATIN) 472054 UNIT/ML suspension Take 5 mL (500,000 Units [...] age to complete this topic Care Teams Reel Operator Relationship Specialty Start Date End Date Leilani Veloz MD [address] [place] [phone] PCP - General Internal Medicine 12/25/23
--- OUTSIDE RECORDS SUMMARY | 2024-11-12 13:38 | XMS_ITS | Encounter Summary ---
Author Organization [facility] Address [address] [place] [address] Care Team Providers Care Mica Paster Name Role Phone Leilani Veloz MD Primary Care Provider [phone] Encounter Details Date Type Department Care Team [...] eat as well, using G tube feedings, steam shovel runner at chairside this morning with PT reviewing [...] Info) Description 11/28/2024 1:30 PM EDT Appointment [facility] In[facility] [address] [place] [phone] 01/02/2025 9:30 AM EDT Office Visit [facility] Hematology Oncology [address] [place] [phone] Zechariah Meraz MD 271 [place] [address] 01/14/2025 10:30 AM EDT Appointment [facility] Radiation Oncology [address] [place] [phone] No Charles NP 271 [place] [address] documented as of this encounter Goals Goal Patient Goal Type Associated Problems Recent Progress Patient-Stated? Author LTLaura General No Xi Braun, SUPERVISOR PRODUCTION MANAGING Note: Pt will consume least restrictive PO diet without changes to medical or respiratory status to maintain adequate oral nutrition hydration STG General No Xi Braun, SUPERVISOR PRODUCTION MANAGING Note: Pt will participate in development of personalized HEP and perform 3-4xs/wk with min assist for modifications Xi Ireland, SUPERVISOR PRODUCTION MANAGING Note: Pt will participate in ongoing education re dysphagia s/p chemoradiation and techniques for symptom management Xi Ireland, SUPERVISOR PRODUCTION MANAGING Note: Pt will consume recommended diet textures and utilize swallow strategies given min verbal or visual cues documented as of this encounter Visit Diagnoses Not on filedocumented in this encounter Care Teams Mica Paster Relationship Specialty Start Date End Date Leilani Veloz MD [facility] [address] PCP - General Internal Medicine 06/08/18 documented as of this encounter
[2024-11-27 09:38] VITALS: BMI 28.0
[2024-11-27 09:39] VITALS: BP 136/90; PULSE 68; RESP 16; TEMP 36.2; O2SAT 98
--- NOTE | 2024-11-27 10:04 | MHC.SHP ---
Pre-Procedural Eval Section A - 24 Hr Update-Section A only Date of Service: 11/27/24 The patient is an INPATIENT: No Changes since office visit: No Cold of Flu in the past 2 weeks, No New Medical Problems, No Changes in Medication and No Patient answered all questions The patient has been examined within 24 hours of the surgical procedure. The History & Physical has been completed within 30 days and I have reviewed it.: Yes Section B - Complete if H&P > 30 days Chief Complaint: Carpal tunnel syndrome, left , and trigger thumb Allergies: Allergies Allergy/AdvReac Type Severity Reaction Status Date / Time No Known Allergies Allergy Verified 11/12/24 09:13 Plan Diagnosis/Plan: Unchanged I have reviewed the history and physical and performed a pertinent physical examination on my patient. No changes have occurred unless specified. Time Spent With Patient Time: Total time managing care of this patient today ____ minutes.
--- NOTE | 2024-11-27 10:04 | W.PM.OPN ---
Operative Note Operative Note Date of Service: 11/27/24 Narrative: Preop diagnosis: 1. Left Carpal tunnel syndrome 2. Left trigger thumb Postop diagnosis: same Procedure: 1. Left Carpal tunnel release Left trigger thumb release Surgeon: Xi Garner MD Electrical Instrument Maker: Keshawn REINOSO Anesthesia: local block using 1% lidocaine with epinephrine Findings: Thickened transverse carpal ligament. EBL: Less than 5 mL Specimens: None Complications: None Disposition: Brought to recovery room in stable condition Plan: Follow-up for 10-14 days for wound check and suture removal Indications: The patient is 59 years old, with a left trigger thumb and left carpal tunnel syndrome that have been unresponsive to nonoperative management. The risks and benefits of operative treatment including but not limited to risk of damage to blood vessels, nerves, tendons, infection, persistent pain, persistent symptoms, or possible need for additional surgery were discussed with the patient and the patient wishes to proceed with surgery. Procedure: Once consent was obtained a local block was performed using a combination of 1% lidocaine with epinephrine. The patient was then brought back to the operating suite and placed on the operative table in supine position. The left upper extremity was prepped and draped in a standard surgical fashion. Once assured that we had a good block, a 1.5 cm oblique incision was made centered over the A1 bakari of the left thumb . The incision was made through the skin to the subcutaneous tissues using a #15 blade. Careful dissection was made down to the level of the A1 bakari using tenotomy scissors, with care being taken to protect the nearby neurovascular structures. A longitudinal incision was made in the A1 bakari 1st using a #15 blade, then using tenotomy scissors under direct visualization. The A1 bakari was noted to be thickened. Following our A1 bakari release, we no longer saw any locking or catching of the digit with flexion and extension. Once assured that we had a good block, a 2.0 cm longitudinal incision was made centered over the carpal tunnel. The incision was made through the skin to the subcutaneous tissues using a #15 blade. Dissection was made down to the level of the transverse carpal ligament with care being taken to protect the palmar cutaneous nerve. Once the transverse carpal ligament was clearly visualized, a longitudinal incision was made in the transverse carpal ligament 1st using a #15 blade, then using tenotomy scissors under direct visualization. Care was taken to look for and protect the motor branch of the median nerve when seen in this area. Once satisfied with our carpal tunnel release the wound was copiously irrigated with normal saline and hemostasis was obtained with a brief period of local pressure. The skin edges were reapproximated with some 5.0 nylon suture material and a sterile dressing was applied. The patient appears to have tolerated the procedure well and with no complications. All digits were well vascularized at the conclusion of the case.
[2024-11-27 12:10] VITALS: BP 140/84; PULSE 83; RESP 15; O2SAT 97
== END 2024-11-27 12:12 | disposition home or self-care (01) ==
PROVIDERS: PCP Internal Medicine; Visit Provider Orthopaedic Surgery
PROC: (CPT 26055; principal; 2024-11-27 12:20)
PROC: (CPT 64721; 2024-11-27 12:20)
DX: G56.02 Carpal tunnel syndrome, left upper limb (principal); M65.312 Trigger thumb, left thumb; M79.642 Pain in left hand; R20.0 Anesthesia of skin; Z86.73 Personal history of transient ischemic attack (TIA), and cerebral infarction without residual deficits; I10 Essential (primary) hypertension; E78.00 Pure hypercholesterolemia, unspecified; Q27.30 Arteriovenous malformation, site unspecified; Z98.890 Other specified postprocedural states; Z87.891 Personal history of nicotine dependence
CPT/HCPCS: 64721; 26055; J0171; J2003

== ENCOUNTER → 2024-11-27 09:22 | Outpatient (BNV) | payer BC, SELFPAY | PROVIDERS: PCP Internal Medicine; Visit Provider Orthopaedic Surgery | DX: G56.02 Carpal tunnel syndrome, left upper limb (principal); M65.312 Trigger thumb, left thumb | CPT/HCPCS: 26055; 64721 ==

== ENCOUNTER 2024-12-10 09:19 | Outpatient (AMB) | payer BC, SELFPAY ==
--- NOTE | 2024-12-10 09:28 | MHC.OFFVIS ---
Vital Signs 12/10/24 09:47 Height 5 ft 5 in Weight 168 lb BMI 28.0 Handedness Right Intake Visit Reasons: PO LT thumb trigger/CTR 11/27/24 AR Intake Note: Donovan is a 59 year old right hand dominant male who presents today post-operatively status post left thumb trigger release & carpal tunnel release, DOS: 11/27/[address] Xi Garner. Sutures removed in office and steri strips applied. Patient reports the first couple of days he had discomfort and shooting pain however this has resolved itself. Expresses very little numbness and tingling in the 1st and 2nd digits of the left hand. He states since the surgery he has been experiencing little numbness and tingling in the 4th and 5th digits. Expresses movement in the left thumb feels better and he has not any locking or catching. OTC Tylenol has provided relief. Allergies No Known Allergies Allergy (Verified 12/10/24 09:48) HPI HPI PO LT thumb trigger/CTR 11/27/24 AR: Details: Donovan is a 59 year old right hand dominant male who presents today post-operatively status post left thumb trigger release & carpal tunnel release, DOS: 11/27/[address] Xi Garner. Sutures removed in office and steri strips applied. Patient reports the first couple of days he had discomfort and shooting pain however this has resolved itself. Expresses very little numbness and tingling in the 1st and 2nd digits of the left hand. He states since the surgery he has been experiencing little numbness and tingling in the 4th and 5th digits. Expresses movement in the left thumb feels better and he has not any locking or catching. OTC Tylenol has provided relief. [facility] Medical History AVM (arteriovenous malformation) Elevated cholesterol CVA (cerebral vascular accident) Carpal tunnel syndrome High blood pressure Surgical History Status post excisional biopsy (11/10/23) H/O colonoscopy History of carpal tunnel release S/P partial lobectomy of lung Family History Mother Breast CA Paternal Grandmother Lung cancer Social History Household Members Other:: son Are you a primary child care attendant school to a significant other at home: No Do you presently have visiting nurse or other home services: No Comment: counts correct Patient Tobacco Use Status: Former Tobacco user Tobacco use type: Cigarette Years Smoked: 40 service: No Current occupational status: employed 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 The procedures were performed to address locking and inability to move the left thumb while driving. Post-surgery, the patient reports dramatic improvement in function and resolution of numbness and tingling, attributing residual tingles to possible compression of the ulnar nerve from external positioning pressures. The patient had a similar carpal tunnel intervention on the right hand years prior without addressing a trigger thumb. There have been no postoperative complications such as infection or significant pain, maintaining stable incisional healing without signs of infection. Review of Systems - Nervous System: Reports numbness and tingling improvement; denies current numbness or tingling in incision area. - Musculoskeletal: Denies locking or catching of left thumb. - Skin: Denies redness or swelling at incision sites. Systems reviewed and are negative except as per HPI and below Physical Exam - Upper Extremity- Incisions on the left hand appear well-healed without tenderness, swelling, or redness. Full range of motion of the thumbs with no locking of the left trigger thumb and no tenderness at the A1 bakari of the left thumb or the volar left wrist. Results - EMG (previous): Showed no evidence of ulnar nerve compression. Procedure Plan Follow-up from procedures for left trigger thumb and carpal tunnel, findings indicate excellent healing and symptom resolution. Current mild tingling attributed to possible ulnar nerve involvement, though not producing immediate concern, should be monitored. Recommendations include continued restrictions on heavy lifting for two more weeks followed by gradual resumption to normal activity. Patient advised to report persistent or symptomatic tingling, which may necessitate additional diagnostics. Patient was informed and verbally consented to the use of an ambient scribe for clinic note documentation during this visit. Discussion Notes We discussed the successful outcomes of the procedures for the left trigger thumb and carpal tunnel, including the impressive resolution of previous symptoms. The potential cause of new mild tingling was explained to the patient, addressing it as possibly from ulnar nerve compression related to positioning, with no immediate intervention required. I emphasized maintaining activity limitations as an avenue to prevent overstraining healing structures and highlighted that any persistent or worsening symptoms might warrant further investigations. No further follow-up appointments are deemed necessary at this time unless new concerns arise. Patient Instructions - Avoid lifting heavier than a cell phone for two more weeks. - Gradually return to normal activities over the subsequent weeks. - Keep incision area out of water for one more week. - Avoid dirty activities for one more week. - Observe for persistent tingling; if concerned, reach out for further evaluation. - Return immediately if any signs of infection occur, such as redness or swelling at incision sites. Coding Level of Care Code Global (80164) Diagnoses Trigger thumb, left thumb M65.312 Carpal tunnel syndrome of left wrist G56.02
[2024-12-10 09:47] VITALS: BMI 28.0
--- OUTSIDE RECORDS SUMMARY | 2024-12-10 10:16 | XMS_ITS | Encounter Summary ---
Author Organization [facility] Address [address] [place] [address] Care Team Providers Care Tile Mechanic Name Role Phone Leilani Veloz MD Primary Care Provider [phone] Encounter Details Date Type Department Care Team [...] Care Team (Late st Contact Info) Description 01/02/2025 9:30 AM EDT Office Visit [facility] Hematology Oncology [address] [place] [phone] Zechariah Meraz MD [address] [place] [phone] 01/14/2025 10:30 AM EDT Appointment [facility] Radiation Oncology [address] [place] [phone] No Charles NP 271 [place] [address] 01/23/2025 8:30 AM EDT Appointment [facility] Infusion Center [address] [place] [phone] documented as of this encounter Goals Goal Patient Goal Type Associated Problems Recent Progress Patient-Stated? Author LTG Xi Morris, BABBITTER Note: Pt will consume least restrictive PO diet without changes to medical or respiratory status to maintain adequate oral nutrition hydration STG Xi Morris, BABBITTER Note: Pt will participate in development of personalized HEP and perform 3-4xs/wk with min assist for modifications STG Xi Morris, BABBITTER Note: Pt will participate in ongoing education re dysphagia s/p chemoradiation and techniques for symptom management [facility] General Karma Braun Xi B, BABBITTER Note: Pt will consume recommended diet textures and utilize swallow strategies given min verbal or visual cues documented as of this encounter Visit Diagnoses Not on filedocumented in this encounter Care Teams Tile Mechanic Relationship Specialty Start Date End Date Leilani Veloz MD [facility] [address] PCP - General Internal Medicine 06/08/18 documented as of this encounter
== END 2024-12-10 10:08 | disposition home or self-care (01) ==
LOC: HO.HOS 09:19
PROVIDERS: PCP Internal Medicine
DX: M65.312 Trigger thumb, left thumb (principal); G56.02 Carpal tunnel syndrome, left upper limb
CPT/HCPCS: 99024

== ENCOUNTER → 2024-12-10 09:19 | Outpatient (BNVA) | payer BC, SELFPAY | PROVIDERS: PCP Internal Medicine ==